=== PATIENT | female | born 1935 | race Caucasian/White ===

== ENCOUNTER 2017-08-07 17:10 | Inpatient (IN) | payer MEDICARE ==
[~2017-08-07] VITALS: Ht 157.5 cm; Wt 71.1 kg
[2017-08-07 17:10] VITALS: BP 176/72; PULSE 92; RESP 28; TEMP 98.3; O2SAT 94
[2017-08-07] MEDS ORDERED: LORazepam 2 MG/ML VIAL ONE ×2 (17:15)
--- NOTE | 2017-08-07 17:43 | RADRPT ---
EXAM DATE/TIME: 08/07/2017 17:26 [facility] COMPARISON: No previous studies available for comparison. INDICATIONS : Stroke Alert. Aphasia versus seizures. RADIATION DOSE: 32.93 CTDIvol (mGy) MEDICAL HISTORY : Non-responsive. SURGICAL HISTORY : Non-responsive. ENCOUNTER: Initial ACUITY: 1 day PAIN SCALE: Non-responsive LOCATION: cranial TECHNIQUE: Multiple contiguous axial images were obtained of the head. Using automated exposure control and adj ustment of the mA and/or kV according to patient size, radiation dose was kept as low as reasonably a chievable to obtain optimal diagnostic quality images. DICOM format image data is available electro nically for review and comparison. FINDINGS: CEREBRUM: Abnormal. There are 2 hyperdense masses with mild surrounding localized edema. These are located in the mid convexity right frontal measuring 2.6 cm and in the mid to high convexity left occipital lob e measuring 2.9 cm. Incidental note of cavum septum pellucidum. No evidence of midline shift or gunner tricular effacement. No extra-axial fluid or blood. POSTERIOR FOSSA: The cerebellum and brainstem are intact. The 4th ventricle is midline. The cerebellopontine angle i s unremarkable. EXTRACRANIAL: The visualized portion of the orbits is intact. SKULL: The calvaria is intact. No evidence of skull fracture. CONCLUSION: There are 2 hyperdense supratentorial masses, right frontal and left occipital, highly suspicious for metastatic lesions. The case has been discussed with Dr. Interiano. Jeremy Bardales MD on August 07, 2017 at 17:37 Board Certified Radiologist. This report was verified electronically.
[2017-08-07] MEDS ORDERED: FOSPHENYTOIN INJ 1,000 MGPE in SODIUM CHLORIDE 0.9% INJ 50 ML IV ONE ×4 (17:45)
[2017-08-07 18:02] LABS: AUTOMATED NEUTROPHIL # 6.1 TH/MM3 (1.8-7.7); BASOPHIL % 0.6 % (0.0-2.0); EOSINOPHIL # 0.2 TH/MM3 (0-0.4); EOSINOPHIL % 1.8 % (0.0-4.0); HEMATOCRIT 41.9 % (35.0-46.0); HEMOGLOBIN 14.7 GM/DL (11.6-15.3); LYMPH % 20.6 % (9.0-44.0); LYMPHOCYTE # 1.8 TH/MM3 (1.0-4.8); MEAN CELL VOLUME 87.8 FL (80.0-100.0); MEAN CORPUSCULAR HEMOGLOBIN 30.7 PG (27.0-34.0); MEAN PLATELET VOLUME 8.1 FL (7.0-11.0); MONO % 6.6 % (0.0-8.0); MONOCYTE # 0.6 TH/MM3 (0-0.9); NEUT % 70.4 % (16.0-70.0); PLATELET COUNT 202 TH/MM3 (150-450); RED BLOOD COUNT 4.78 MIL/MM3 (4.00-5.30); RED CELL DISTRIBUTION WIDTH 13.8 % (11.6-17.2); WHITE BLOOD COUNT 8.6 TH/MM3 (4.0-11.0)
[2017-08-07 18:05] LABS: ALBUMIN 4.2 GM/DL (3.4-5.0); ALT (GPT) 34 U/L (10-53); AST (GOT) 25 U/L (15-37); BICARBONATE 21.6 MEQ/L (21.0-32.0); BLOOD UREA NITROGEN 17 MG/DL (7-18); CALCIUM 9.4 MG/DL (8.5-10.1); CHLORIDE 103 MEQ/L (98-107); CREATININE 0.81 MG/DL (0.50-1.00); GLOMERULAR FILTRATION RATE 68 ML/MIN (>89); GLUCOSE,RANDOM 115 MG/DL (74-106); SODIUM (NA) 137 MEQ/L (136-145)
[2017-08-07 18:06] LABS: PROTHROMBIN TIME - PATIENT 10.6 SEC (9.8-11.6)
--- NOTE | 2017-08-07 18:12 | RADRPT ---
EXAM DATE/TIME: 08/07/2017 17:56 [facility] COMPARISON: No previous studies available for comparison. INDICATIONS : Stroke Alert. Aphasia versus seizures. MEDICAL HISTORY : Nonresponsive. SURGICAL HISTORY : Nonresponsive. ENCOUNTER: Initial ACUITY: 1 day PAIN SCORE: Non-responsive. LOCATION: Bilateral chest FINDINGS: A single view of the chest demonstrates the lungs to be symmetrically aerated without evidence of mas s, confluent infiltrate or effusion. There is prominence of the interstitial lung markings. The cardi omediastinal contours are unremarkable. Osseous structures are intact. Atherosclerotic changes are p resent in the aorta. There are multiple overlying electrocardiogram leads. CONCLUSION: No acute disease. Ap Bashir MD on August 07, 2017 at 18:10 Board Certified Radiologist. This report was verified electronically.
[2017-08-07 18:16] LABS: ALKALINE PHOSPHATASE 59 U/L (45-117); TOTAL BILIRUBIN ADULT 1.6 MG/DL (0.2-1.0); TOTAL PROTEIN 7.8 GM/DL (6.4-8.2)
--- NOTE | 2017-08-07 18:18 | PD ---
HPI Chief Complaint: Altered Mental Status Time Seen by Provider: 17:15 Travel History International Travel<30 days: No Contact w/Intl Traveler<30days: No Traveled to known affect area: No History of Present Illness HPI 81-year-old female was brought in by family member altered mental status. Patient's son states that patient states that she was not feeling well all day yesterday. Patient's son states that he went to the store and came back and patient was having shaking motions of extremity this afternoon. Patient also has been confused and had problems speaking since this afternoon. Patient unable to tell me any information. Patient's son states the patient has no medical problem. Patient's son states the patient is not on any medication. Patient son stated patient is not allergic to any medication. Patient son reported no recent injury. Patient's son states the patient is a nonsmoker. PFSH Past Medical History Diminished Hearing: No GERD: Yes Tetanus Vaccination: Unknown : 3 Para: 3 Miscarriage: 0 : 0 Past Surgical History Appendectomy: Yes Social History Alcohol Use: Yes Tobacco Use: No Substance Use: No Allergies-Medications (Allergen,Severity, Reaction): Coded Allergies: No Known Allergies (Unverified , 08/07/17) Reported Meds & Prescriptions Reported Meds & Active Scripts Active No Active Prescriptions or Reported Medications Review of Systems ROS Limitations: Altered Mental Status General / Constitutional: No: Fever Eyes: No: Visual changes HENT: No: Headaches Cardiovascular: No: Chest Pain or Discomfort Respiratory: No: Shortness of Breath Gastrointestinal: No: Abdominal Pain Genitourinary: No: Dysuria Musculoskeletal: No: Pain Skin: No Rash Neurologic: No: Weakness Psychiatric: No: Depression Endocrine: No: Polydipsia Hematologic/Lymphatic: No: Easy Bruising Physical Exam Narrative GENERAL: Well-nourished, well-developed patient. SKIN: Focused skin assessment warm/dry. HEAD: Normocephalic. EYES: No scleral icterus. No injection or drainage. NECK: Supple, trachea midline. No JVD or lymphadenopathy. CARDIOVASCULAR: Regular rate and rhythm without murmurs, gallops, or rubs. RESPIRATORY: Breath sounds equal bilaterally. No accessory muscle use. GASTROINTESTINAL: Abdomen soft, non-tender, nondistended. MUSCULOSKELETAL: No cyanosis, or edema. BACK: Nontender without obvious deformity. No CVA tenderness. Neurologic exam: Patient opens eyes to command and speak several words. Patient however has frequent fine tremors and shaking of the extremity and muscles spasm of the face. No bladder or bowel incontinence. Data Data Last Documented VS Vital Signs Date Time Temp Pulse Resp B/P (MAP) Pulse Ox O2 Delivery O2 Flow Rate FiO2 08/07/17 17:10 98.3 92 28 176/72 (106) 94 Orders Orders Lorazepam Inj (Ativan Inj) (08/07/17 17:15) Electrocardiogram (08/07/17 17:23) Complete Blood Count With Diff (08/07/17 17:23) Comprehensive Metabolic Panel (08/07/17 17:23) Prothrombin Time / Inr (Pt) (08/07/17:23) Act Partial Throm Time (Ptt) (08/07/17 17:23) Thyroid Stimulating Hormone (08/07/17 17:23) Chest, Single Ap (08/07/17 17:23) Ct Brain W/O Iv Contrast(Rout) (08/07/17 17:23) Iv Access Insert/Monitor (08/07/17 17:23) Ecg Monitoring (08/07/17 17:23) Oximetry (08/07/17 17:23) Fosphenytoin Inj (Cerebyx Inj) (08/07/17 17:45) Admit Order (Ed Use Only) (08/07/17 17:52) Consult Neurosurgery (08/07/17 ) Labs Laboratory Tests Test 08/07/17 17:30 White Blood Count 8.6 TH/MM3 Red Blood Count 4.78 MIL/MM3 Hemoglobin 14.7 GM/DL Hematocrit 41.9 % Mean Corpuscular Volume 87.8 FL Mean Corpuscular Hemoglobin 30.7 PG Mean Corpuscular Hemoglobin Concent 35.0 % Red Cell Distribution Width 13.8 % Platelet Count 202 TH/MM3 Mean Platelet Volume 8.1 FL Neutrophils (%) (Auto) 70.4 % Lymphocytes (%) (Auto) 20.6 % Monocytes (%) (Auto) 6.6 % Eosinophils (%) (Auto) 1.8 % Basophils (%) (Auto) 0.6 % Neutrophils # (Auto) 6.1 TH/MM3 Lymphocytes # (Auto) 1.8 TH/MM3 Monocytes # (Auto) 0.6 TH/MM3 Eosinophils # (Auto) 0.2 TH/MM3 Basophils # (Auto) 0.0 TH/MM3 CBC Comment DIFF FINAL Differential Comment Prothrombin Time 10.6 SEC Prothromb Time International Ratio 1.0 RATIO Activated Partial Thromboplast Time 22.6 SEC Blood Urea Nitrogen 17 MG/DL Creatinine 0.81 MG/DL Random Glucose 115 MG/DL Albumin 4.2 GM/DL Calcium Level 9.4 MG/DL Aspartate Amino Transf (AST/SGOT) 25 U/L Alanine Aminotransferase (ALT/SGPT) 34 U/L Sodium Level 137 MEQ/L Potassium Level 3.6 MEQ/L Chloride Level 103 MEQ/L Carbon Dioxide Level 21.6 MEQ/L Anion Gap 12 MEQ/L Estimat Glomerular Filtration Rate 68 ML/MIN MDM Medical Decision Making Medical Screen Exam Complete: Yes Emergency Medical Condition: Yes Interpretation(s) Last Impressions Head CT 08/07/17 6873 Signed Impressions: Service Date/Time: Monday, August 07, 2017 17:26 - CONCLUSION: There are 2 hyperdense supratentorial masses, right frontal and left occipital, highly suspicious for metastatic lesions. The case has been discussed with Dr. Interiano. Jeremy Bardales MD Chest x-ray shows no acute pulmonary disease. CBC within normal limit. CMP within normal limit. Differential Diagnosis Differential diagnosis including TIA, CVA, seizure. Narrative Course 81-year-old female with altered mental status, seizures episode and aphasia. Ativan 1 mg IV given. Normal saline solution [address] Romero, neurology came to see the patient. I spoke with Dr. Fernando, neurosurgeon, who came to see the patient also. Fosphenytoin 1 g IV given. Diagnosis Primary Impression: Brain mass Additional Impression: Seizure Admitting Information Admitting Physician Requests: Admit Scripts No Active Prescriptions or Reported Meds Manjit Interiano MD Aug 07, 2017 18:18
[2017-08-07 18:19] VITALS: BP 177/82; PULSE 90; RESP 20; O2SAT 94
[2017-08-07] MEDS ORDERED: LORazepam 2 MG/ML VIAL IV PUSH ONE ×2 (18:30)
--- NOTE | 2017-08-07 18:41 | PD.CONS ---
History of Present Illness Service Neurosurgery Consult Requested By Emergency room-Dr. Interiano Reason for Consult Brain lesions-seizure Primary Care Physician Unknown Diagnoses: History of Present Illness 81-year-old female who was brought to the emergency room by her family due to changes in mental status. She lives at home with her family. They state that when they came home this afternoon, their daughter noticed that the patient was confused and not speaking normally. She was also noted to have somewhat diffuse shaking or tremor in the upper greater than lower extremities. She had difficulty ambulating. She has no history of seizures. No history of cancer. The family states that the patient has not complained of any recent problems up until yesterday, including no headaches, dizziness, memory loss, gait difficulty. No recent fevers. Review of Systems Unable to obtain review of systems from the patient due to altered mental status Past Family Social History Allergies: Coded Allergies: No Known Allergies (Unverified , 08/07/17) Past Medical History No history of significant cardiac pulmonary or gastrointestinal disease except for GERD. No hypertension, diabetes. Past Surgical History Appendectomy Reported Medications Reported Meds & Active Scripts Active No Active Prescriptions or Reported Medications Family History Negative for cancer in the family Social History Does not smoke cigarettes or drink alcohol Physical Exam Vital Signs Vital Signs Date Time Temp Pulse Resp B/P (MAP) Pulse Ox O2 Delivery O2 Flow Rate FiO2 08/07/17 18:19 90 20 177/82 (113) 94 Room Air 08/07/17 17:10 98.3 92 28 176/72 (106) 94 Physical Exam GENERAL: This is a well-nourished, well-developed patient, no apparent distress. SKIN: No abrasions, contusion, rash noted. Skin warm and dry. HEAD: Atraumatic. Normocephalic. No temporal or scalp tenderness. EYES: Sclerae are clear and nonicteric ENT: No facial edema or ecchymosis. No periorbital edema. No CSF otorrhea or rhinorrhea. No palpable facial fracture or deformity. NECK: Trachea midline. No cervical spine tenderness. CARDIOVASCULAR: Regular rate and rhythm without murmurs, gallops, or rubs. RESPIRATORY: Clear to auscultation. Breath sounds equal bilaterally. No wheezes , rales, or rhonchi. GASTROINTESTINAL: Abdomen soft, non-tender, nondistended. No hepato-splenomegaly , or palpable masses. No guarding. MUSCULOSKELETAL: Extremities without cyanosis, or edema. No joint tenderness, or edema noted. No calf tenderness. Dorsalis pedis pulses 2+ bilateral NEUROLOGICAL: Mild to moderate lethargy No agitation Presently nonverbal She follows occasionally with her eyes and seems to grasp weak with her hands but not definitely to command Pupils are equal and reactive to accommodation. Extra-ocular movements, visual [place] to confrontation, facial sensorimotor, tongue, palate, sternocleidomastoid testing, hearing to finger rub testing, and bilateral shoulder shrug are all intact. Sensation is intact to light touch in all extremities Strength somewhat difficult to accurately assess due to decreased mental status. She appears to move all extremities with reasonable strength.. Possibly a little weaker on the right than the left side Sadie's absent bilaterally No ankle clonus Plantar responses absent bilateral Fine motor movements impaired in the bilateral upper extremities Laboratory Laboratory Tests Test 08/07/17 17:30 White Blood Count 8.6 Red Blood Count 4.78 Hemoglobin 14.7 Hematocrit 41.9 Mean Corpuscular Volume 87.8 Mean Corpuscular Hemoglobin 30.7 Mean Corpuscular Hemoglobin Concent 35.0 Red Cell Distribution Width 13.8 Platelet Count 202 Mean Platelet Volume 8.1 Neutrophils (%) (Auto) 70.4 Lymphocytes (%) (Auto) 20.6 Monocytes (%) (Auto) 6.6 Eosinophils (%) (Auto) 1.8 Basophils (%) (Auto) 0.6 Neutrophils # (Auto) 6.1 Lymphocytes # (Auto) 1.8 Monocytes # (Auto) 0.6 Eosinophils # (Auto) 0.2 Basophils # (Auto) 0.0 CBC Comment DIFF FINAL Differential Comment Prothrombin Time 10.6 Prothromb Time International Ratio 1.0 Activated Partial Thromboplast Time 22.6 Blood Urea Nitrogen 17 Creatinine 0.81 Random Glucose 115 Total Protein 7.8 Albumin 4.2 Calcium Level 9.4 Alkaline Phosphatase 59 Aspartate Amino Transf (AST/SGOT) 25 Alanine Aminotransferase (ALT/SGPT) 34 Total Bilirubin 1.6 Sodium Level 137 Potassium Level 3.6 Chloride Level 103 Carbon Dioxide Level 21.6 Anion Gap 12 Estimat Glomerular Filtration Rate 68 Thyroid Stimulating Hormone 3rd Gen 1.920 Result Diagram: 08/07/17 1730 08/07/17 1730 Imaging 08/07/17 CT scan had images have been reviewed by the undersigned. There is an approximately 25 mm right frontal increased density lesion as well as an approximately 30 mm left occipital lesion. There is a likelihood of hemorrhage within both lesions, with mild to moderate surrounding edema. No significant midline shift. Head CT 08/07/[id number] Signed Impressions: Service Date/Time: Monday, August 07, 2017 17:26 - CONCLUSION: There are 2 hyperdense supratentorial masses, right frontal and left occipital, highly suspicious for metastatic lesions. The case has been discussed with Dr. Interiano. Jeremy Bardales MD Chest X-Ray 08/07/171722 Signed Impressions: Service Date/Time: Monday, August 07, 2017 17:56 - CONCLUSION: No acute disease. Ap Bashir MD Assessment and Plan Assessment and Plan Impression: 1. The patient presents with a right frontal and left occipital brain lesion, probable hemorrhagic component. These are most consistent with metastatic brain lesions. 2. New onset seizure activity related to brain lesions. Recommendations: Discussed with the patient's family in the intensive surgical care unit. Discussed with energy efficiency specialist Admit to intensive care unit for close vital signs and neurologic checks. Patient has been loaded with Dilantin which will be continued. CT scan of the abdomen and pelvis and chest will be obtained for screening for possible primary lesion. MRI of the brain has been requested to better delineate the nature of the brain lesions. Oncology consultation. Ulcer prophylaxis Decadron initiated for edema surrounding the lesions. Jonny Fernando MD Aug 07, 2017 18:41
[2017-08-07] MEDS ORDERED: MISCELLANEOUS NURSING INFORMATION XX SCH ×2 (19:00)
[2017-08-07] MEDS ORDERED: CHLORHEXIDINE GLUCONATE 2 % 1 PACK (2 CLOTHS) TOP PRN ×2 (19:00)
[2017-08-07] MEDS ORDERED: RESP: ALBUTEROL 2.5 MG/IPRATROPIUM 0.5 MG NEB (PRN) INH ×2 (19:00)
[2017-08-07] MEDS ORDERED: DEXTROSE 50% IN WATER 50 ML VIAL(D50) IV PUSH PRN (19:15)
[2017-08-07] MEDS ORDERED: GLUCAGON 1 MG/ML VIAL OTHER PRN ×2 (19:15)
[2017-08-07] MEDS ORDERED: hydrALAZINE HCL 20 MG/ML VIAL IV PUSH PRN ×2 (19:30)
--- NOTE | 2017-08-07 19:48 | MH ---
cc: KAMILA GOMEZ M.D. DATE OF ADMISSION 08/07/2017 DATE OF 1935 HISTORY OF THE PRESENT ILLNESS The patient is a 81-year-old female without significant past medical history who presented to [facility] ED by her family due to altered mental status. According to the patient's son the patient was not feeling well yesterday. This afternoon he found her confused with difficulty speaking and was shaking in the extremities. There is no history of any seizure or malignancy. The patient also has difficulty with her speech, lethargic and complaining of headaches for one day. There is no history of any syncopal episode. On arrival to the ED the patient was hypertensive with blood pressure 176/72 and pulse of 92. CT scan of the brain showed two hyperdense masses with mild surrounding localized edema. She has a right frontal mass measuring 2.6 cm and left occipital lobe mass measuring 2.9 cm. The patient received a loading dose of Cerebyx in the ER for possible seizures and Ativan 1 mg IV x1 was given as well. She was seen by Dr. Fernando from neurosurgery and plan to proceed with MRI of the brain and oncology workup. PAST MEDICAL HISTORY No history of hypertension, diabetes, malignancy or coronary artery disease. PAST SURGICAL HISTORY Previous appendectomy. ALLERGIES NO KNOWN DRUG ALLERGIES. SOCIAL HISTORY Ex-drinker. Non smoker. FAMILY HISTORY No history of malignancy. MEDICATIONS Pepto-Bismol p.r.n. REVIEW OF SYSTEMS As per HPI, the rest of the review of systems limited as patient is a poor historian. PHYSICAL EXAMINATION GENERAL: A 81-year-old female, lethargic. VITAL SIGNS: Temperature 98.3, pulse of 91, blood pressure 177/82, saturation 94% on room air. HEENT: Atraumatic, normocephalic. Pupils equal, round, reactive to light and accommodation. Extraocular muscles intact. Conjunctivae pink. Nonicteric sclerae. Oral mucosa within normal. NECK: Supple. No JVD, adenopathy, thyromegaly. Trachea midline. CARDIOVASCULAR: Regular rate and rhythm. Normal S1-S2. No murmurs, rubs or gallops noted. LUNGS: Pulmonary exam bilateral equal air entry. No rales or wheezing. ABDOMEN: Soft, nontender, no distension. Positive bowel sounds. EXTREMITIES: No cyanosis, clubbing or edema. NEUROLOGIC: Lethargic and drowsy. LABORATORY DATA Sodium 137, potassium 3.6, chloride 103, CO2 21, BUN 17, creatinine 0.8, glucose 115, total bilirubin 1.6, AST 25, ALT 34, alk phos 59. TSH 1.9. WBC 8.6, hemoglobin 14.7, hematocrit 41, platelet count 202. INR 1.0. PT 10.6, PTT 22.6. IMAGING Radiographic studies, CT scan of the brain showed two hyperdense supratentorial masses right frontal and left occipital suspicious for metastatic lesions. Chest x-ray no acute disease. IMPRESSION 1. Right frontal 2.6 cm and left occipital 2.9 cm brain masses, suspicious for metastatic lesions. 2. Altered mental status. 3. New onset seizure activity. 4. Hypertension. RECOMMENDATIONS 1. Monitor neuro status closely and avoid any sedatives. We will proceed with MRI of the brain and oncology workup. Discussed with Dr. Fernando from neurosurgery. The patient was given 1 gram loading dose of Cerebyx in the ED. We will continue with Cerebyx and add Decadron. 2. Check EEG. 3. Oxygen p.r.n. to maintain sats above 92%. 4. Bronchodilators on a p.r.n. basis. 5. Monitor heart rate and blood pressure closely and maintain MAP greater than [address]. [address] on hydralazine 10 mg IV q.6h p.r.n. for systolic blood pressure greater than 160. 6. Monitor renal function Is and Os and electrolyte replacement as needed. Place on IV fluids NS at 75 ml an hour. 7. Keep n.p.o. for now and will consult speech therapy for swallow evaluation. 8. Hold antibiotics at this time at there is no evidence of any infectious process. Monitor for signs infections which include fever and WBC. Panculture if spikes a fever. 9. We will proceed with a CT scan of the thorax along with CT abdomen and pelvis for further workup of her metastatic brain lesions. 10. We will consult medical oncology. 11. Place on sliding scale insulin with Accu-Cheks for glycemic control if needed. 12. GI prophylaxis with Protonix 40 mg daily and DVT prophylaxis with SCDs. Will hold off on chemical anticoagulation prophylaxis given brain masses. 13. The case discussed with Dr. Fernando from neuro surgery. MD BETTY Lee 7:07 PM 7:26 PM
[2017-08-07] MEDS ORDERED: IOHEXOL 350 MG/ML 10 ML VIAL (for RAD DIAG) IVCONTRAST ONE ×2 (19:56)
[2017-08-07 20:00] VITALS: BP 118/81; PULSE 97; RESP 20; TEMP 98.5; O2SAT 99
[2017-08-07] MEDS: INSULIN NovoLIN REGULAR SUPPLEMENTAL SCALE SQ SCH ×2 (20:00)
--- NOTE | 2017-08-07 20:22 | RADRPT ---
EXAM DATE/TIME: 08/07/2017 19:53 [facility] COMPARISON: CHEST SINGLE AP, August 07, 2017, 17:56. INDICATIONS : Brain metastasis with unknown primary.. IV CONTRAST: 90 cc Omnipaque 350 (iohexol) IV ; Cumulative dose for multiple exams. RADIATION DOSE: 19.24 CTDIvol (mGy) ; Combined studies - Thorax/Abdomen/Pelvis MEDICAL HISTORY : None SURGICAL HISTORY : Appendectomy. ENCOUNTER: Initial ACUITY: 1 day PAIN SCALE: 0/10 LOCATION: chest TECHNIQUE: Volumetric scanning of the chest was performed. Using automated exposure control and adjustment of t he mA and/or kV according to patient size, radiation dose was kept as low as reasonably achievable to obtain optimal diagnostic quality images. DICOM format image data is available electronically for review and comparison. Follow-up recommendations for detected pulmonary nodules are based at a minimum on nodule size and pa tient risk factors according to Fleischner Society Guidelines. FINDINGS: LUNGS: There is no consolidation or pneumothorax. No concerning pulmonary nodule is visualized. PLEURA: There is no pleural thickening or pleural effusion. MEDIASTINUM: The heart and great vessels demonstrate no acute abnormality. There is no mediastinal or hilar lymph adenopathy. AXILLAE: Within normal limits. No lymphadenopathy. SKELETAL: Within normal limits for patient age. MISCELLANEOUS: The visualized upper abdominal organs demonstrate no acute abnormality. There is evidence of hepatic steatosis. There is a small hiatal hernia. There is a 6 mm low density nodule the right lobe of thyro id. CONCLUSION: 1. No evidence of primary tumor or metastatic disease. 2. Small low-attenuation lesion in the right lobe of the thyroid gland which is nonspecific but likel y represents a small hyperplastic. 3. Hepatic steatosis. 4. Small hiatal hernia. Ap Bashir MD on August 07, 2017 at 20:18 Board Certified Radiologist. This report was verified electronically.
--- NOTE | 2017-08-07 20:24 | RADRPT ---
EXAM DATE/TIME: 08/07/2017 19:53 [facility] COMPARISON: No previous studies available for comparison. INDICATIONS : Newly diagnosed brain metastasis. Patient being evaluated for unknown primary.. IV CONTRAST: 90 cc Omnipaque 350 (iohexol) IV ; Cumulative dose for multiple exams. ORAL CONTRAST: No oral contrast ingested. RADIATION DOSE: 19.9 CTDIvol (mGy) ; Combined studies - Thorax/Abdomen/Pelvis MEDICAL HISTORY : None SURGICAL HISTORY : Appendectomy. ENCOUNTER: Initial ACUITY: 1 day PAIN SCALE: 0/10 LOCATION: abdomen TECHNIQUE: Volumetric scanning of the abdomen and pelvis was performed. Using automated exposure control and ad justment of the mA and/or kV according to patient size, radiation dose was kept as low as reasonably achievable to obtain optimal diagnostic quality images. DICOM format image data is available electro nically for review and comparison. FINDINGS: LOWER LUNGS: The visualized lower lungs are clear. LIVER: Homogeneous density without lesion. There is no dilation of the biliary tree. No calcified gallston es. There is mild hepatic steatosis. The gallbladder is unremarkable in appearance. SPLEEN: Normal size without lesion. PANCREAS: Within normal limits. KIDNEYS: Normal in size and shape. There is no mass, stone or hydronephrosis. ADRENAL GLANDS: Within normal limits. VASCULAR: There is no aortic aneurysm. BOWEL/MESENTERY: There is a small hiatal hernia. No oral contrast was given limiting the sensitivity of the exam. The stomach, small bowel, and colon demonstrate no acute abnormality. There is no free intraperitoneal a ir or fluid. ABDOMINAL WALL: Within normal limits. RETROPERITONEUM: There is no lymphadenopathy. BLADDER: No wall thickening or mass. REPRODUCTIVE: Within normal limits. INGUINAL: There is no lymphadenopathy or hernia. MUSCULOSKELETAL: Within normal limits for patient age. Osteopenia and mild degenerative changes are present. CONCLUSION: 1. No evidence of primary tumor or metastatic disease. 2. Hepatic steatosis. 3. Small hiatal hernia. Ap Bashir MD on August 07, 2017 at 20:20 Board Certified Radiologist. This report was verified electronically.
[2017-08-07 20:30] VITALS: PULSE 97
[2017-08-07] MEDS: SODIUM CHLOR 0.9% 1000 ML INJ 1,000 ML IV SCH ×2 (21:08)
[2017-08-07] MEDS: levETIRAcetam INJ 500 MG in SODIUM CHLORIDE 0.9% INJ 100 ML IV SCH ×4 (21:08)
[2017-08-07] MEDS: DEXAMETHASONE SOD PHOS 4 MG/ML VIAL IV PUSH SCH ×2 (21:09)
[2017-08-07] MEDS: RESP: ALBUTEROL 2.5 MG/IPRATROPIUM 0.5 MG NEB (SCH) INH ×2 (21:24)
[2017-08-07 21:25] VITALS: O2SAT 95
[2017-08-07 22:00] VITALS: PULSE 104
[2017-08-07] MEDS ORDERED: HALOPERIDOL LACTATE 5 MG/ML AMP IV PUSH ONE ×2 (23:30)
[2017-08-08] VITALS (14 sets, daily range): BP systolic 105–155; BP diastolic 60–92; PULSE 78–118; RESP 13–28; TEMP 97.3–99.5; O2SAT 91–99
[2017-08-08] MEDS: DEXAMETHASONE SOD PHOS 4 MG/ML VIAL IV PUSH SCH ×10 (00:27→22:53)
[2017-08-08] MEDS ORDERED: MORPHINE SULFATE 2 MG/ML INJ IV PUSH ONE ×2 (03:00)
[2017-08-08] MEDS: CHLORHEXIDINE GLUCONATE 2 % 1 PACK (2 CLOTHS) TOP SCH ×2 (04:00)
[2017-08-08] MEDS: INSULIN NovoLIN REGULAR SUPPLEMENTAL SCALE SQ SCH ×12 (04:00→20:00)
[2017-08-08] MEDS: RESP: ALBUTEROL 2.5 MG/IPRATROPIUM 0.5 MG NEB (SCH) INH ×8 (04:00→20:50)
[2017-08-08] MEDS: LABETALOL HCL 100 MG/20 ML VIAL IV PUSH PRN ×4 (04:12→09:22)
[2017-08-08 04:22] LABS: BASOPHIL % 0.3 % (0.0-2.0); HEMATOCRIT 41.6 % (35.0-46.0); HEMOGLOBIN 14.6 GM/DL (11.6-15.3); LYMPH % 5.7 % (9.0-44.0); LYMPHOCYTE # 0.5 TH/MM3 (1.0-4.8); MEAN CELL VOLUME 87.1 FL (80.0-100.0); MEAN CORPUSCULAR HEMOGLOBIN 30.6 PG (27.0-34.0); MEAN CORPUSCULAR HGB CONC 35.1 % (32.0-36.0); MEAN PLATELET VOLUME 7.9 FL (7.0-11.0); MONO % 0.5 % (0.0-8.0); NEUT % 93.5 % (16.0-70.0); PLATELET COUNT 205 TH/MM3 (150-450); RED BLOOD COUNT 4.78 MIL/MM3 (4.00-5.30); RED CELL DISTRIBUTION WIDTH 13.9 % (11.6-17.2); WHITE BLOOD COUNT 8.6 TH/MM3 (4.0-11.0)
[2017-08-08 04:32] LABS: ALBUMIN 4.1 GM/DL (3.4-5.0); ALT (GPT) 30 U/L (10-53); AST (GOT) 21 U/L (15-37); BICARBONATE 21.2 MEQ/L (21.0-32.0); BLOOD UREA NITROGEN 12 MG/DL (7-18); CHLORIDE 102 MEQ/L (98-107); CREATININE 0.74 MG/DL (0.50-1.00); GLOMERULAR FILTRATION RATE 76 ML/MIN (>89); GLUCOSE,RANDOM 204 MG/DL (74-106); MAGNESIUM 1.9 MG/DL (1.5-2.5); PHOSPHORUS 2.6 MG/DL (2.5-4.9); SODIUM (NA) 136 MEQ/L (136-145)
[2017-08-08 04:35] LABS: ALKALINE PHOSPHATASE 61 U/L (45-117); TOTAL BILIRUBIN ADULT 1.9 MG/DL (0.2-1.0); TOTAL PROTEIN 7.5 GM/DL (6.4-8.2)
[2017-08-08] MEDS ORDERED: DEXMEDETOMIDINE HCL 200 MCG/2 ML VIAL IV PUSH ONE ×2 (08:00)
[2017-08-08] MEDS: levETIRAcetam INJ 500 MG in SODIUM CHLORIDE 0.9% INJ 100 ML IV SCH ×8 (09:00→22:53)
[2017-08-08] MEDS: SODIUM CHLOR 0.9% 1000 ML INJ 1,000 ML IV SCH ×4 (09:20→22:40)
--- NOTE | 2017-08-08 09:28 | MB ---
cc: TANNER ALCARAZ MD DATE OF CONSULTATION: 08/08/2017 1937 PRIMARY CARE PHYSICIAN The patient has none. REQUESTING PHYSICIAN Dr. Fernando of neurosurgery. REASON FOR CONSULTATION CT head findings of two hyperdense masses involving the right frontal lobe and left occipital lobe concerning for metastatic lesions. CHIEF COMPLAINT Ms. Crane herself is confused. Most of the history was obtained from her son and from the electronic medical record. Per the son, the patient has been increasingly confused and had been word searching for the past 2 days. She had also been reporting severe headache for which she was taking Aleve twice daily for the past week and a half. HISTORY OF PRESENT ILLNESS Ms. Crane is a 81-year-old female with no past history of tobaccoism, she does have a history of heavy alcohol consumption. She lives at home by herself and had no routine medical follow-up with a primary care provider. The patient's son reports seeing her almost on a daily basis over the past several months. He had been noting his mother to be increasingly confused, forgetful and with difficulty balancing. He was at her house 2 days ago and found the patient more confused than normal and she was unable to complete a sentence. He tells me her gait was wide and she had poor balance. She was brought into the emergency department and underwent a CT scan of the head with IV contrast. The CT scan of the head dated 08/07/2017 revealed two hyperdense supratentorial masses involving the left frontal lobe and left occipital lobe highly suspicious for underlying metastatic lesions. CT scan of the chest, abdomen, pelvis was subsequently performed and there was no evidence of definite primary disease. A small low attenuation lesion involving the right lobe of the thyroid gland was noted but this was thought to likely represent a hyperplastic cyst. The oncology service has been asked to see her given the likely underlying diagnosis of metastatic disease. The patient of note has no history of melanoma or breast cancer. PAST MEDICAL HISTORY Regular alcohol consumption, per the son. She has no other chronic medical comorbid conditions. PAST SURGICAL HISTORY Previous history of appendectomy. FAMILY HISTORY Daughter had a benign tumor. Father of coronary artery disease. No oncologic diagnoses noted. SOCIAL HISTORY She lives at home alone. Never a smoker, previous heavy drinker. ALLERGIES NO KNOWN DRUG ALLERGIES. MEDICATIONS Current inpatient medications: 1. Precedex. 2. Keppra 500 mg IV q.12 hours. 3. Normal saline 75 cc/hour. 4. DuoNebs 1 ampule every 6 hours as needed. 5. Dexamethasone 10 mg IV q.6 hours. 6. Haloperidol 2 mg IV x1. 7. Labetalol 10 mg IV q.6 hours as needed. 8. Lorazepam 1 mg IV x1. 9. Low-dose insulin sliding scale. Dexamethasone was decreased to 6 mg every 4-hours. REVIEW OF SYSTEMS 13-point review of systems was attempted, the patient is alert but not oriented. She is speaking unintelligibly. Per the son, the patient had been reporting headaches, difficulty balancing, difficulty completing sentences and was increasingly confused. There was no reported history of chest pain, respiratory difficulties, abdominal pain, or overt bleeding. The remainder of the HPI could not be obtained. PHYSICAL EXAMINATION VITAL SIGNS: Temperature 99.5 degrees Fahrenheit, heart rate 104 beats per minute, respiratory rate ranging between 25 and 28 breaths per minute, blood pressure 149/60, O2 sats 98% on 2 liters nasal cannula. GENERAL PHYSICAL APPEARANCE: Ms. Crane is an elderly lady, she is sitting up in bed. She is awake and alert, she is confused. She indicates she would like her restraints off. Her son is at bedside. HEENT: Head atraumatic, normocephalic, conjunctivae are non pale. Sclerae are anicteric. ORAL EXAM: No pharyngeal erythema. Dry mucous membranes. NECK: No palpable cervical or supraclavicular lymphadenopathy. RESPIRATORY: Good air movement bilaterally. No added breath sounds. CARDIOVASCULAR: Regular rate and rhythm, S1-S2. No obvious murmurs, rubs or gallops. GI: Protuberant belly, soft, nontender, nondistended. No palpable organ enlargement. No inguinal lymphadenopathy. BREAST: Performed in the presence of a female nurse chiropractor sole practitioner without any skin changes, no underlying masses noted, no axillary lymphadenopathy. LOWER EXTREMITIES: No pretibial edema or calf tenderness. SKIN: There were no suspicious obvious lesions noted on her arms or anterior torso or on her legs. LABORATORY FINDINGS Blood work dated 08/08/2017: WBC count 8.6, hemoglobin 14.6 gm/dl, hematocrit 41.6%, platelet count 205, absolute neutrophil count is 8. Chemistries: Sodium 136, potassium 3.5, chloride 102, bicarb 21.2, BUN 12, creatinine 0.74, calcium 9, phosphorus 2.6, magnesium 1.9, total bilirubin 1.9, AST 21, ALT 30, alkaline phosphatase 61, albumin is 4.1. IMAGING STUDIES CT scan of the chest, abdomen and pelvis reveals no evidence of primary malignancy. She does have a nodule noted in her right thyroid lobe which likely is hyperplastic. CT scan of the abdomen and pelvis was without abnormalities. CT scan of the head reveals two hyperdense supratentorial masses involving the right frontal lobe and left occipital lobe, highly suspicious for metastatic deposits with secondary hemorrhage. ASSESSMENT Ms. Crane is a 81-year-old female with no known medical comorbid conditions, she rarely followed up with a primary care physician. She has no history of tobaccoism but her son does report the patient previously was a heavy drinker. She had a 2-week history of progressive confusion, word searching, difficulty balancing and progressive headaches. She was brought into the emergency department by her son after the patient was found at home to be weak, unable to speak without stammering and was found on initial evaluation in the emergency department to have two hyperdense lesions within the brain. These were highly suspicious for metastatic lesions. No definite primary site in the thorax or abdomen was identified. The oncology service has been asked to see her for further management. RECOMMENDATIONS 1. The case was discussed with Dr. Fernando of neurosurgery. It appears she will benefit from biopsy/excision of the frontal lobe and occipital lobe lesions to help obtain tissue to identify the etiology. The oncology service will follow along with you. Further recommendations will be made once a underlying diagnosis is established. MD MAE Davis/VANDANA /8:37 AM /9:03 AM
[2017-08-08] MEDS: DEXMEDETOMIDINE INJ 200 MCG in SODIUM CHLORIDE 0.9% INJ 50 ML IV PRN ×12 (09:51→22:54)
--- NOTE | 2017-08-08 10:14 | HHI.NSPN ---
(Bonifacio Harrell) History Chief Complaint: Unable to obtain due to patient's clinical condition. (Bonifacio Harrell) Interval History 08/07: 81-year-old female who was brought to the emergency room by her family due to changes in mental status. She lives at home with her family. They state that when they came home this afternoon, their daughter noticed that the patient was confused and not speaking normally. She was also noted to have somewhat diffuse shaking or tremor in the upper greater than lower extremities. She had difficulty ambulating. She has no history of seizures. No history of cancer. The family states that the patient has not complained of any recent problems up until yesterday, including no headaches, dizziness, memory loss, gait difficulty. No recent fevers. 08/08: The patient is mildly lethargic when seen and responds to voice. Her family is visiting with her. She states that she wants to be left alone and is noncooperative. Her speech is slurred and at times incomprehensible. She does endorse a headache. (Bonifacio Harrell) System Review Comments Neurological: Headache. Unable to obtain remainder of ROS due to patient's refusal to answer any further questions. (Bonifacio Harrell) Exam Results 08/06/17 08/06/17 08/07/17 08/07/17 08/08/17 08/08/17 06:00 18:00 06:00 18:00 06:00 18:00 Intake Total 168 ml Output Total 300 ml Balance -132 ml Intake IV Total 168 ml Output Urine Total 300 ml # Voids 1 # Bowel Movements 0 Vital Signs Date Time Temp Pulse Resp B/P (MAP) Pulse Ox O2 Delivery O2 Flow Rate FiO2 08/08/17 06:00 116 08/08/17 04:00 104 08/08/17 04:00 99.5 98 28 149/60 (89) 98 08/08/17 02:00 118 08/08/17 00:00 101 08/08/17 00:00 99.5 100 26 144/73 (96) 92 08/07/17 22:00 104 08/07/17 21:25 95 Nasal Cannula 2.00 08/07/17 20:30 97 08/07/17 20:00 98.5 97 20 118/81 (93) 99 08/07/17 18:19 90 20 177/82 (113) 94 Room Air 08/07/17 17:10 98.3 92 28 176/72 (106) 94 (Bonifacio Harrell) Physical Examination GENERAL: Mild lethargy, responds to voice, resistant to interacting, no apparent distress. SKIN: Warm, dry & intact, no evident rashes, ulcerations or other lesions. HEENT: Normocephalic, atraumatic, PERRLA, no otorrhea or rhinorrhea. Patient refused to open mouth. NECK: Moves neck w/o difficulty or evident pain, no JVD, trachea midline. CARDIOVASCULAR: S1S2 w/RRR w/o M/G/R, radial & pedal pulses 2+ bilaterally, cap refill < 2 sec, no pedal edema. Monitor is sinus rhythm w/o any ectopy noted. RESPIRATORY: CTAB w/o W/R/R, equal excursion, nonlaboured, on RA. GASTROINTESTINAL: Abdomen soft, nontender, positive bowel sounds. MUSCULOSKELETAL: BURNS but restrained due to pulling at lines, no evident deformity or clubbing. NEUROLOGICAL: Mild lethargy, responds to voice, resistant to evaluation & noncooperative, GCS 13 (E3 V4 M6). Speech slurred, garbled at times, confused. Eye opening to voice, PERRLA. Follows some simple commands w/coaxing. Wiggles fingers and toes to command to a degree to command, restrained. (Bonifacio Harrell) Lab, Micro, Other Results Recent Impressions Head CT 08/07/171722 Signed Impressions: Service Date/Time: Monday, August 07, 2017 17:26 - CONCLUSION: There are 2 hyperdense supratentorial masses, right frontal and left occipital, highly suspicious for metastatic lesions. The case has been discussed with Dr. Interiano. Jeremy Bardales MD Chest X-Ray [id number]/07/171722 Signed Impressions: Service Date/Time: Monday, August 07, 2017 17:56 - CONCLUSION: No acute disease. Ap Bashir MD Chest CT 08/07/17 0000 Signed Impressions: Service Date/Time: Monday, August 07, 2017 19:53 - CONCLUSION: 1. No evidence of primary tumor or metastatic disease. 2. Small low-attenuation lesion in the right lobe of the thyroid gland which is nonspecific but likely represents a small hyperplastic. 3. Hepatic steatosis. 4. Small hiatal hernia. Ap Bashir MD Abdomen/Pelvis CT 08/07/17 0000 Signed Impressions: Service Date/Time: Monday, August 07, 2017 19:53 - CONCLUSION: 1. No evidence of primary tumor or metastatic disease. 2. Hepatic steatosis. 3. Small hiatal hernia. Ap Bashir MD Laboratory Tests Test 08/07/17 17:30 08/07/17 21:02 08/07/17 23:00 08/08/17 04:01 White Blood Count 8.6 TH/MM3 8.6 TH/MM3 Red Blood Count 4.78 MIL/MM3 4.78 MIL/MM3 Hemoglobin 14.7 GM/DL 14.6 GM/DL Hematocrit 41.9 % 41.6 % Mean Corpuscular Volume 87.8 FL 87.1 FL Mean Corpuscular Hemoglobin 30.7 PG 30.6 PG Mean Corpuscular Hemoglobin Concent 35.0 % 35.1 % Red Cell Distribution Width 13.8 % 13.9 % Platelet Count 202 TH/MM3 205 TH/MM3 Mean Platelet Volume 8.1 FL 7.9 FL Neutrophils (%) (Auto) 70.4 % 93.5 % Lymphocytes (%) (Auto) 20.6 % 5.7 % Monocytes (%) (Auto) 6.6 % 0.5 % Eosinophils (%) (Auto) 1.8 % 0.0 % Basophils (%) (Auto) 0.6 % 0.3 % Neutrophils # (Auto) 6.1 TH/MM3 8.0 TH/MM3 Lymphocytes # (Auto) 1.8 TH/MM3 0.5 TH/MM3 Monocytes # (Auto) 0.6 TH/MM3 0.0 TH/MM3 Eosinophils # (Auto) 0.2 TH/MM3 0.0 TH/MM3 Basophils # (Auto) 0.0 TH/MM3 0.0 TH/MM3 CBC Comment DIFF FINAL DIFF FINAL Differential Comment Prothrombin Time 10.6 SEC Prothromb Time International Ratio 1.0 RATIO Activated Partial Thromboplast Time 22.6 SEC Blood Urea Nitrogen 17 MG/DL 12 MG/DL Creatinine 0.81 MG/DL 0.74 MG/DL Random Glucose 115 MG/DL 204 MG/DL Total Protein 7.8 GM/DL 7.5 GM/DL Albumin 4.2 GM/DL 4.1 GM/DL Calcium Level 9.4 MG/DL 9.0 MG/DL Alkaline Phosphatase 59 U/L 61 U/L Aspartate Amino Transf (AST/SGOT) 25 U/L 21 U/L Alanine Aminotransferase (ALT/SGPT) 34 U/L 30 U/L Total Bilirubin 1.6 MG/DL 1.9 MG/DL Sodium Level 137 MEQ/L 136 MEQ/L Potassium Level 3.6 MEQ/L 3.5 MEQ/L Chloride Level 103 MEQ/L 102 MEQ/L Carbon Dioxide Level 21.6 MEQ/L 21.2 MEQ/L Anion Gap 12 MEQ/L 13 MEQ/L Estimat Glomerular Filtration Rate 68 ML/MIN 76 ML/MIN Thyroid Stimulating Hormone 3rd Gen 1.920 uIU/ML Blood Gas Puncture Site RT RADIAL Blood Gas Patient Temperature 98.6 Blood Gas HCO3 23 mmol/L Blood Gas Base Excess -0.6 mmol/L Blood Gas Oxygen Saturation 92 % Arterial Blood pH 7.46 Arterial Blood Partial Pressure CO2 33 mmHg Arterial Blood Partial Pressure O2 67 mmHg Arterial Blood Oxygen Content 17.9 Vol % Arterial Blood Carboxyhemoglobin 1.5 % Arterial Blood Methemoglobin 0.8 % Blood Gas Hemoglobin 13.9 G/DL Oxygen Delivery Device NASAL CANNULA Blood Gas Liter Flow 2 L/M Nasal Screen MRSA (PCR) MRSA NOT DETECTED Phosphorus Level 2.6 MG/DL Magnesium Level 1.9 MG/DL (Bonifacio Harrell) Medical Decision Making Impression and Plan Impression: 1. The patient presents with a right frontal and left occipital brain lesion, probable hemorrhagic component. These are most consistent with metastatic brain lesions. 2. New onset seizure activity related to brain lesions. Patient mildly lethargic, still confused, speech slurred/garbled intermittently , occasionally follows some commands. Reviewed imaging & labs. Reviewed Oncology consult note. Plan: Discussed plan of care with the patient's family. Primary management per Funeral Planning Counselor/Hospitalist. Plan to take patient to OR tomorrow for resection of the right frontal & left occipital brain lesions. Will obtain MRI brain w/o & w/contrast w/brain lab in AM prior to surgery under Anaesthesia. NPO after midnight. Frequent neuro checks. Stat CT brain for any worsening in neuro status. Continue phenytoin. Ulcer prophylaxis. Continue dexamethasone for edema surrounding the lesions. Appreciate Oncology's assistance and input. (Bonifacio Harrell) Attending Statement The exam, history, and the medical decision-making described in the above note were completed with the assistance of the mid-level provider. I reviewed and agree with the findings presented. I attest that I had a [id number] encounter with the patient on the same day, and personally performed and documented my assessment and findings in the medical record. She remains relatively awake and alert. Still with moderate receptive and expressive speech deficit and at least mild confusion. She was all extremities well. Follows a few simple commands. Neurologic exam a little improved compared to admission. Discussed at length with the patient's son in the room today. Options of conservative treatment versus surgical intervention for biopsy versus resection discussed. I advised him that at least a biopsy under anesthesia revealed necessary to continue further treatment including possible chemotherapy and radiation therapy. Due to the significant neurologic deficit and the potential for further hemorrhage, as well as the likely improvement and prognosis with surgical resection, it is felt that resection of the lesions would be her most reasonable course of treatment at this time. He appears understand and agree with the above. The surgical procedure, risks, possible complications, prognosis, anticipated recovery time has been fully discussed. Questions and answered. Since been reviewed with the patient's son today. It is anticipated that she will proceed to surgery on 08-24, with preoperative MRI under anesthesia including stereotactic MRI brain imaging. (Jonny Fernando MD) Bonifacio Harrell Aug 08, 2017 10:14 Jonny Fernando MD Aug 10, 2017 20:17
--- NOTE | 2017-08-08 12:26 | HHI.CCPN ---
Subjective Remarks/Hospital Course The patient is a 81-year-old female without significant past medical history who presented to [facility] ED by her family due to altered mental status. According to the patient's son the patient was not feeling well yesterday. This afternoon he found her confused with difficulty speaking and was shaking in the extremities. There is no history of any seizure or malignancy. The patient also has difficulty with her speech, lethargic and complaining of headaches for one day. There is no history of any syncopal episode. On arrival to the ED the patient was hypertensive with blood pressure 176/72 and pulse of 92. CT scan of the brain showed two hyperdense masses with mild surrounding localized edema. She has a right frontal mass measuring 2.6 cm and left occipital lobe mass measuring 2.9 cm. The patient received a loading dose of Cerebyx in the ER for possible seizures and Ativan 1 mg IV x1 was given as well. She was seen by Dr. Fernando from neurosurgery and plan to proceed with MRI of the brain and oncology workup. 08/08: No seizures today. Protects airway. Objective Vital Signs Date Time Temp Pulse Resp B/P (MAP) Pulse Ox O2 Delivery O2 Flow Rate FiO2 08/08/17 11:09 95 Nasal Cannula 2.00 08/08/17 06:00 116 08/08/17 04:00 99.5 28 149/60 (89) Intake and Output 08/08/17 08/08/17 08/09/17 08:00 16:00 00:00 Output Total 300 ml Balance -300 ml Result Diagram: 08/08/17 0401 08/08/17 0401 Other Results Laboratory Tests Test 08/07/17 21:02 Blood Gas Puncture Site RT RADIAL Blood Gas Patient Temperature 98.6 Blood Gas HCO3 23 mmol/L (22-26) Blood Gas Base Excess -0.6 mmol/L (-2-2) Blood Gas Oxygen Saturation 92 % (90-100) Arterial Blood pH 7.46 (7.380-7.420) Arterial Blood Partial Pressure CO2 33 mmHg (38-42) Arterial Blood Partial Pressure O2 67 mmHg (61-120) Arterial Blood Oxygen Content 17.9 Vol % (12.0-20.0) Arterial Blood Carboxyhemoglobin 1.5 % (0-4) Arterial Blood Methemoglobin 0.8 % (0-2) Blood Gas Hemoglobin 13.9 G/DL (12.0-16.0) Oxygen Delivery Device NASAL CANNULA Blood Gas Liter Flow 2 L/M Objective Remarks HEENT: Atraumatic, normocephalic. Conjunctivae pink. Nonictericsclerae. Oral mucosa within normal. NECK: Supple. No JVD, adenopathy, thyromegaly. Trachea midline. CARDIOVASCULAR: Regular rate and rhythm. Normal S1-S2. No murmurs, rubs or gallops noted. LUNGS: Pulmonary exam bilateral equal air entry. No rales or wheezing. ABDOMEN: Soft, nontender, no distension. Positive bowel sounds. EXTREMITIES: No cyanosis, clubbing or edema. NEUROLOGIC: Lethargic and drowsy. Pupils equal, round, reactive to light and accommodation. Extraocular muscles intact. A/P Assessment and Plan IMPRESSION: 1. Right frontal 2.6 cm and left occipital 2.9 cm brain masses, suspicious for metastatic lesions. 2. Altered mental status. 3. New onset seizure activity. 4. Hypertension. RECOMMENDATIONS: 1. Monitor neuro status closely and avoid any sedatives. We will proceed with MRI of the brain and oncology workup. Discussed with Dr. Fernando from neurosurgery. The patient was given 1 gram loading dose of Cerebyx in the ED. We will continue with Cerebyx and add Decadron. 2. Check EEG. 3. Oxygen p.r.n. to maintain sats above 92%. 4. Bronchodilators on a p.r.n. basis. 5. Monitor heart rate and blood pressure closely and maintain MAP greater than [address] on hydralazine 10 mg IV q.6h p.r.n. for systolic blood pressure greater than 160. 6. Monitor renal function Is and Os and electrolyte replacement as needed. Place on IV fluids NS at 75 ml an hour. 7. Keep n.p.o. for now and will consult speech therapy for swallow evaluation. 8. Hold antibiotics at this time at there is no evidence of any infectious process. Monitor for signs infections which include fever and WBC. Panculture if spikes a fever. 9. We will proceed with a CT scan of the thorax along with CT abdomen and pelvis for further workup of her metastatic brain lesions. 10. We will consult medical oncology. 11. Place on sliding scale insulin with Accu-Cheks for glycemic control if needed. 12. GI prophylaxis with Protonix 40 mg daily and DVT prophylaxis with SCDs. Will hold off on chemical anticoagulation prophylaxis given brain masses. 13. The case discussed with Dr. Fernando from neuro surgery. Overall impression: Two lathe brain masses. CT chest and abdomen without obvious promary. Payam Almeida MD Aug 08, 2017 12:26
[2017-08-08] MEDS ORDERED: POTASSIUM PHOSPHATE MONOBASIC 500 MG TAB PO/TUBE PRN ×2 (13:00)
[2017-08-08] MEDS ORDERED: POTASSIUM PHOSPHATE INJ 30 MMOL in SODIUM CHLOR 0.9% 250 ML INJ 250 ML IV PRN ×4 (13:00)
[2017-08-08] MEDS ORDERED: POTASSIUM CHLOR 20 MEQ PREMIX 100 ML IV PRN ×4 (13:00)
[2017-08-08] MEDS ORDERED: MAGNESIUM OXIDE 400 MG TAB PO PRN ×2 (13:00)
[2017-08-08] MEDS ORDERED: MAGNESIUM SULFATE INJ 4 GM in SODIUM CHLORIDE 0.9% INJ 92 ML IV PRN ×4 (13:00)
[2017-08-08] MEDS ORDERED: MAGNESIUM SULFATE INJ 2 GM in SODIUM CHLORIDE 0.9% INJ 96 ML IV PRN ×4 (13:00)
[2017-08-08] MEDS ORDERED: POTASSIUM PHOSPHATE MONOBASIC 500 MG TAB PO PRN ×2 (13:00)
[2017-08-08] MEDS ORDERED: SODIUM PHOSPHATE INJ 30 MMOL in SODIUM CHLOR 0.9% 250 ML INJ 240 ML IV PRN ×4 (13:00)
[2017-08-08] MEDS ORDERED: POTASSIUM CHLOR 40 MEQ PREMIX 100 ML IV PRN ×4 (13:00)
[2017-08-08] MEDS ORDERED: POTASSIUM CHLORIDE 25 MEQ EFFERVESCENT TAB PO PRN ×2 (13:00)
--- NOTE | 2017-08-08 15:46 | EKG ---
Date Performed: 08/07/2017 Time Performed: 17:36:25 PTAGE: 81 years EKG: Sinus rhythm NORMAL ECG NO PREVIOUS TRACING DOCTOR: Maria Isabel Hernandez Interpretating Date/Time 08/08/2017 15:44:08
--- NOTE | 2017-08-08 15:46 | EKG ---
Date Performed: 08/07/2017 Time Performed: 17:36:25 PTAGE: 81 years EKG: Sinus rhythm NORMAL ECG NO PREVIOUS TRACING DOCTOR: Maria Isabel Hernandez Interpretating Date/Time 08/08/2017 15:44:08
--- NOTE | 2017-08-08 15:46 | EKG ---
Date Performed: 08/07/2017 Time Performed: 17:36:25 PTAGE: 81 years EKG: Sinus rhythm NORMAL ECG NO PREVIOUS TRACING DOCTOR: Maria Isabel Hernandez Interpretating Date/Time 08/08/2017 15:44:08
[2017-08-09] VITALS (11 sets, daily range): BP systolic 124–140; BP diastolic 59–63; PULSE 67–124; RESP 13–18; TEMP 97.6–98.4; O2SAT 94–98
--- NOTE | 2017-08-09 00:20 | MG ---
cc: FLEX ROMERO MD Sex: F DATE OF [address] Morales MEDICAL HISTORY Altered mental status, shaking motion of extremity, confused, speech difficulty , history of GERD, alcohol use. MEDICATIONS 1. Precedex. 2. Keppra. 3. Insulin. 4. Apresoline. 5. Trandate. 6. Decadron DESCRIPTION: EEG recording was done while the patient is on 0.3 mcg of Precedex. There is generalized background slowing with polymorphic delta and theta rhythm. There is evident slowing in the right frontal region in the theta range and on the left temporal occipital region, mainly on the left side and intermittently on the delta range. Hyperventilation was not performed. Photic stimulation did not elicit a driving response. There is no electrographic seizures or epileptiform discharges. EEG INTERPRETATION This is an awake and drowsy EEG. Generalized slowing of the background may indicate an encephalopathic process that may be related to metabolic, medication effects, or hypoxic etiology. The mild right frontal and moderate left occipital slowing may indicate a structural abnormality. Absence of electrographic seizures or epileptiform discharges does not rule out a diagnosis of epilepsy. Clinical correlation is recommended. Flex Romero MD [facility]/JASPER /8:26 PM /12:16 AM MTDAmanda
--- NOTE | 2017-08-09 00:20 | MG ---
cc: FLEX ROMERO MD Sex: F DATE OF [address] Morales MEDICAL HISTORY Altered mental status, shaking motion of extremity, confused, speech difficulty , history of GERD, alcohol use. MEDICATIONS 1. Precedex. 2. Keppra. 3. Insulin. 4. Apresoline. 5. Trandate. 6. Decadron DESCRIPTION: EEG recording was done while the patient is on 0.3 mcg of Precedex. There is generalized background slowing with polymorphic delta and theta rhythm. There is evident slowing in the right frontal region in the theta range and on the left temporal occipital region, mainly on the left side and intermittently on the delta range. Hyperventilation was not performed. Photic stimulation did not elicit a driving response. There is no electrographic seizures or epileptiform discharges. EEG INTERPRETATION This is an awake and drowsy EEG. Generalized slowing of the background may indicate an encephalopathic process that may be related to metabolic, medication effects, or hypoxic etiology. The mild right frontal and moderate left occipital slowing may indicate a structural abnormality. Absence of electrographic seizures or epileptiform discharges does not rule out a diagnosis of epilepsy. Clinical correlation is recommended. Flex Romero MD [facility]/JASPER /8:26 PM /12:16 AM MTDAmanda
--- NOTE | 2017-08-09 00:20 | MG ---
cc: FLEX ROMERO MD Sex: F DATE OF [address] Morales MEDICAL HISTORY Altered mental status, shaking motion of extremity, confused, speech difficulty , history of GERD, alcohol use. MEDICATIONS 1. Precedex. 2. Keppra. 3. Insulin. 4. Apresoline. 5. Trandate. 6. Decadron DESCRIPTION: EEG recording was done while the patient is on 0.3 mcg of Precedex. There is generalized background slowing with polymorphic delta and theta rhythm. There is evident slowing in the right frontal region in the theta range and on the left temporal occipital region, mainly on the left side and intermittently on the delta range. Hyperventilation was not performed. Photic stimulation did not elicit a driving response. There is no electrographic seizures or epileptiform discharges. EEG INTERPRETATION This is an awake and drowsy EEG. Generalized slowing of the background may indicate an encephalopathic process that may be related to metabolic, medication effects, or hypoxic etiology. The mild right frontal and moderate left occipital slowing may indicate a structural abnormality. Absence of electrographic seizures or epileptiform discharges does not rule out a diagnosis of epilepsy. Clinical correlation is recommended. Flex Romero MD [facility] /8:26 PM /12:16 AM MTDAmanda
[2017-08-09] MEDS: CHLORHEXIDINE GLUCONATE 2 % 1 PACK (2 CLOTHS) TOP SCH ×2 (04:00)
[2017-08-09] MEDS: INSULIN NovoLIN REGULAR SUPPLEMENTAL SCALE SQ SCH ×12 (04:00→20:00)
[2017-08-09] MEDS: DEXAMETHASONE SOD PHOS 4 MG/ML VIAL IV PUSH SCH ×10 (04:55→23:03)
[2017-08-09] MEDS: RESP: ALBUTEROL 2.5 MG/IPRATROPIUM 0.5 MG NEB (SCH) INH ×8 (04:57→21:34)
[2017-08-09 05:24] LABS: BICARBONATE 23.2 MEQ/L (21.0-32.0); CALCIUM 8.8 MG/DL (8.5-10.1); CREATININE 0.57 MG/DL (0.50-1.00)
[2017-08-09] MEDS: DEXMEDETOMIDINE INJ 200 MCG in SODIUM CHLORIDE 0.9% INJ 50 ML IV PRN ×4 (05:25)
[2017-08-09] MEDS: levETIRAcetam INJ 500 MG in SODIUM CHLORIDE 0.9% INJ 100 ML IV SCH ×8 (09:33→20:33)
--- NOTE | 2017-08-09 09:49 | HHI.NSPN ---
(Bonifacio Harrell) History Chief Complaint: None (Bonifacio Harrell) Interval History 08/07: 81-year-old female who was brought to the emergency room by her family due to changes in mental status. She lives at home with her family. They state that when they came home this afternoon, their daughter noticed that the patient was confused and not speaking normally. She was also noted to have somewhat diffuse shaking or tremor in the upper greater than lower extremities. She had difficulty ambulating. She has no history of seizures. No history of cancer. The family states that the patient has not complained of any recent problems up until yesterday, including no headaches, dizziness, memory loss, gait difficulty. No recent fevers. 08/08: The patient is mildly lethargic when seen and responds to voice. Her family is visiting with her. She states that she wants to be left alone and is noncooperative. Her speech is slurred and at times incomprehensible. She does endorse a headache. 08/09: The patient is seen in rounds with Dr Fernando this morning. She is asleep but opens her eyes to voice. She denies any headache when asked. The undersigned acts as a scribe for the remainder of this note. (Bonifacio Harrell) System Review Comments Denies any headache. (Bonifacio Harrell) Exam Results 08/07/17 08/07/17 08/08/17 08/08/17 08/09/17 08/09/17 06:00 18:00 06:00 18:00 06:00 18:00 Intake Total 168 ml 639 ml 100 ml Output Total 300 ml 1300 ml 1100 ml Balance -132 ml -661 ml -1000 ml Intake Oral 0 ml IV Total 168 ml 639 ml 100 ml Output Urine Total 300 ml 1300 ml 1100 ml # Voids 1 3 # Bowel Movements 0 0 0 Vital Signs Date Time Temp Pulse Resp B/P (MAP) Pulse Ox O2 Delivery O2 Flow Rate FiO2 08/09/17 06:00 72 08/09/17 04:00 97.6 67 13 124/59 (80) 98 08/09/17 04:00 67 08/09/17 02:00 74 08/09/17 00:58 97 Nasal Cannula 4.00 08/09/17 00:00 98.4 68 14 127/63 (84) 98 08/09/17 00:00 71 08/08/17 22:00 78 08/08/17 20:50 98 Nasal Cannula 4.00 08/08/17 20:00 98.0 78 13 105/61 (76) 97 08/08/17 20:00 78 08/08/17 19:00 98 Nasal Cannula 3.00 08/08/17 18:00 99 08/08/17 16:00 98.1 90 15 151/72 (98) 99 08/08/17 16:00 90 08/08/17 14:00 79 08/08/17 12:00 98.3 94 21 140/63 (88) 91 08/08/17 12:00 90 08/08/17 11:09 95 Nasal Cannula 2.00 08/08/17 10:00 98 08/08/17 08:00 97.3 112 26 155/92 (113) 98 08/08/17 08:00 112 08/08/17 07:00 98 Nasal Cannula 3.00 08/08/17 06:00 116 08/08/17 04:00 104 08/08/17 04:00 99.5 98 28 149/60 (89) 98 08/08/17 02:00 118 08/08/17 00:00 101 08/08/17 00:00 99.5 100 26 144/73 (96) 92 08/07/17 22:00 104 08/07/17 21:25 95 Nasal Cannula 2.00 08/07/17 20:30 97 08/07/17 20:00 98.5 97 20 118/81 (93) 99 08/07/17 18:19 90 20 177/82 (113) 94 Room Air 08/07/17 17:10 98.3 92 28 176/72 (106) 94 (Bonifacio Harrell) Physical Examination MUSCULOSKELETAL: BURNS. NEUROLOGICAL: Speech is confused. She does follow commands and moves her extremities spontaneously. (Bonifacio Harrell) Lab, Micro, Other Results Recent Impressions Head CT [id number]/07/[id number] Signed Impressions: Service Date/Time: Monday, August 07, 2017 17:26 - CONCLUSION: There are 2 hyperdense supratentorial masses, right frontal and left occipital, highly suspicious for metastatic lesions. The case has been discussed with Dr. Interiano. Jeremy Bardales MD Chest X-Ray [id number]/07/[id number] Signed Impressions: Service Date/Time: Monday, August 07, 2017 17:56 - CONCLUSION: No acute disease. Ap Bashir MD Chest CT 08/07/17 0000 Signed Impressions: Service Date/Time: Monday, August 07, 2017 19:53 - CONCLUSION: 1. No evidence of primary tumor or metastatic disease. 2. Small low-attenuation lesion in the right lobe of the thyroid gland which is nonspecific but likely represents a small hyperplastic. 3. Hepatic steatosis. 4. Small hiatal hernia. Ap Bashir MD Abdomen/Pelvis CT 08/07/17 0000 Signed Impressions: Service Date/Time: Monday, August 07, 2017 19:53 - CONCLUSION: 1. No evidence of primary tumor or metastatic disease. 2. Hepatic steatosis. 3. Small hiatal hernia. Ap Bashir MD Laboratory Tests Test 08/07/17 17:30 08/07/17 21:02 08/07/17 23:00 08/08/17 04:01 White Blood Count 8.6 TH/MM3 8.6 TH/MM3 Red Blood Count 4.78 MIL/MM3 4.78 MIL/MM3 Hemoglobin 14.7 GM/DL 14.6 GM/DL Hematocrit 41.9 % 41.6 % Mean Corpuscular Volume 87.8 FL 87.1 FL Mean Corpuscular Hemoglobin 30.7 PG 30.6 PG Mean Corpuscular Hemoglobin Concent 35.0 % 35.1 % Red Cell Distribution Width 13.8 % 13.9 % Platelet Count 202 TH/MM3 205 TH/MM3 Mean Platelet Volume 8.1 FL 7.9 FL Neutrophils (%) (Auto) 70.4 % 93.5 % Lymphocytes (%) (Auto) 20.6 % 5.7 % Monocytes (%) (Auto) 6.6 % 0.5 % Eosinophils (%) (Auto) 1.8 % 0.0 % Basophils (%) (Auto) 0.6 % 0.3 % Neutrophils # (Auto) 6.1 TH/MM3 8.0 TH/MM3 Lymphocytes # (Auto) 1.8 TH/MM3 0.5 TH/MM3 Monocytes # (Auto) 0.6 TH/MM3 0.0 TH/MM3 Eosinophils # (Auto) 0.2 TH/MM3 0.0 TH/MM3 Basophils # (Auto) 0.0 TH/MM3 0.0 TH/MM3 CBC Comment DIFF FINAL DIFF FINAL Differential Comment Prothrombin Time 10.6 SEC Prothromb Time International Ratio 1.0 RATIO Activated Partial Thromboplast Time 22.6 SEC Blood Urea Nitrogen 17 MG/DL 12 MG/DL Creatinine 0.81 MG/DL 0.74 MG/DL Random Glucose 115 MG/DL 204 MG/DL Total Protein 7.8 GM/DL 7.5 GM/DL Albumin 4.2 GM/DL 4.1 GM/DL Calcium Level 9.4 MG/DL 9.0 MG/DL Alkaline Phosphatase 59 U/L 61 U/L Aspartate Amino Transf (AST/SGOT) 25 U/L 21 U/L Alanine Aminotransferase (ALT/SGPT) 34 U/L 30 U/L Total Bilirubin 1.6 MG/DL 1.9 MG/DL Sodium Level 137 MEQ/L 136 MEQ/L Potassium Level 3.6 MEQ/L 3.5 MEQ/L Chloride Level 103 MEQ/L 102 MEQ/L Carbon Dioxide Level 21.6 MEQ/L 21.2 MEQ/L Anion Gap 12 MEQ/L 13 MEQ/L Estimat Glomerular Filtration Rate 68 ML/MIN 76 ML/MIN Thyroid Stimulating Hormone 3rd Gen 1.920 uIU/ML Blood Gas Puncture Site RT RADIAL Blood Gas Patient Temperature 98.6 Blood Gas HCO3 23 mmol/L Blood Gas Base Excess -0.6 mmol/L Blood Gas Oxygen Saturation 92 % Arterial Blood pH 7.46 Arterial Blood Partial Pressure CO2 33 mmHg Arterial Blood Partial Pressure O2 67 mmHg Arterial Blood Oxygen Content 17.9 Vol % Arterial Blood Carboxyhemoglobin 1.5 % Arterial Blood Methemoglobin 0.8 % Blood Gas Hemoglobin 13.9 G/DL Oxygen Delivery Device NASAL CANNULA Blood Gas Liter Flow 2 L/M Nasal Screen MRSA (PCR) MRSA NOT DETECTED Phosphorus Level 2.6 MG/DL Magnesium Level 1.9 MG/DL Test 08/09/17 04:17 Blood Urea Nitrogen 14 MG/DL Creatinine 0.57 MG/DL Random Glucose 148 MG/DL Calcium Level 8.8 MG/DL Sodium Level 143 MEQ/L Potassium Level 4.2 MEQ/L Chloride Level 110 MEQ/L Carbon Dioxide Level 23.2 MEQ/L Anion Gap 10 MEQ/L Estimat Glomerular Filtration Rate 102 ML/MIN (Bonifacio Harrell) Medical Decision Making Impression and Plan The Impression & Plan are carried forward from the note of except for deletion of the authors daily impression and as noted Modified. Impression: 1. The patient presents with a right frontal and left occipital brain lesion, probable hemorrhagic component. These are most consistent with metastatic brain lesions. 2. New onset seizure activity related to brain lesions. Plan: Discussed plan of care with the patient's family. Primary management per Agriculture Department Chair/Hospitalist. Will take for resection of the right frontal & left occipital brain lesions. ( Modified) Will obtain MRI brain w/o & w/contrast w/brain lab prior to surgery under Anaesthesia. (Modified) NPO. (Modified) Frequent neuro checks. Stat CT brain for any worsening in neuro status. Continue phenytoin. Ulcer prophylaxis. Continue dexamethasone for edema surrounding the lesions. Appreciate Oncology's assistance and input. (Bonifacio Harrell) Attending Statement The exam, history, and the medical decision-making described in the above note were completed with the assistance of the mid-level provider. I reviewed and agree with the findings presented. I attest that I had a [id number] encounter with the patient on the same day, and personally performed and documented my assessment and findings in the medical record. Patient's preoperative exam stable on 08/09/2017 Discuss plans with family again preoperative. (Jonny Fernando MD) Bonifacio Harrell Aug 09, 2017 09:49 Jonny Fernando MD Aug 10, 2017 20:18
[2017-08-09] MEDS ORDERED: THROMBIN (TOPICAL) 5,000 UNIT VIAL ONE ×4 (10:22→14:11)
[2017-08-09] MEDS ORDERED: LIDOCAINE 2%/EPINEPHrine PF 1:200,000 20ML SDV ONE ×2 (10:22)
[2017-08-09] MEDS ORDERED: GELFOAM SIZE 100 ONE ×4 (10:22→14:08)
[2017-08-09] MEDS ORDERED: GENTAMICIN SULFATE 80 MG/2 ML VIAL ONE ×2 (10:23)
[2017-08-09] MEDS ORDERED: GADODIAMIDE PF 287 MG/ML 20 ML VIAL (for RAD MRI) IVCONTRAST ONE ×2 (10:55)
[2017-08-09] MEDS ORDERED: LIDOCAINE 1%/EPINEPHrine 1:100,000 SOLN 50 ML VIAL ONE ×2 (11:13)
[2017-08-09] MEDS: SODIUM CHLOR 0.9% 1000 ML INJ 1,000 ML IV SCH ×2 (12:00)
--- NOTE | 2017-08-09 12:23 | RADRPT ---
EXAM DATE/TIME: 08/09/2017 10:31 [place] COMPARISON: No previous studies available for comparison. INDICATIONS : Mass. CONTRAST: 16 cc Omniscan (gadodiamide) IV MEDICAL HISTORY : Gastroesophageal reflux disease. SURGICAL HISTORY : Appendectomy. ENCOUNTER: Subsequent ACUITY: 3 day PAIN SCORE: 0/10 LOCATION: head. TECHNIQUE: Multiplanar, multisequence MRI of the brain was performed both prior to and following the administrat ion of paramagnetic contrast. FINDINGS: Heterogeneously enhancing intra-axial masses are seen of the right frontal and left parieto-occipital lobes measuring approximately 17 and 23 mm, respectively. Small subacute and moderate chronic hemorr walter present around both lesions, especially posteriorly. There is also some surrounding cerebral ramiro ma. However, mass effect is minimal. There is no measurable midline shift. No other mass or hemorrhage. No restricted diffusion. Mild to moderate chronic flair signal abnormali ty seen in the periventricular white matter of both cerebral hemispheres. No focal bone lesion demonstrated. CONCLUSION: Intra-axial masses of the right frontal and left parieto-occipital lobes likely metastatic disease. S ubacute and chronic blood products and edema are present around each lesion but without measurable mi dline shift. Kodi Gómez MD on August 09, 2017 at 12:19 Board Certified Radiologist. This report was verified electronically.
[2017-08-09] MEDS ORDERED: ceFAZolin INJ 1,000 MG VIAL IV ONE ×2 (12:52)
[2017-08-09] MEDS ORDERED: PROPOFOL 1000 MG/100 ML INJ 0 ML ONE ×2 (16:42)
--- NOTE | 2017-08-09 17:09 | PD.OP ---
Operative Report Date of Surgery: Aug 09, 2017 Preoperative Diagnosis: (1) Brain mass 1. Right frontal metastatic neoplasm 2. Left occipital metastatic neoplasm Postoperative Diagnosis: (1) Brain mass 1. Right frontal metastatic neoplasm 2. Left occipital metastatic neoplasm Procedure: 1. Left occipital craniotomy, resection neoplasm. 2. Use of intraoperative frameless stereotactic navigation for planning and resection of left occipital neoplasm 3. Right frontal craniotomy for resection neoplasm Anesthesia: Gen. Surgeon: Jonny Fernando Supervisor Drilling And Shooting(s): Mariela Umanzor Operation and Findings: Findings: 1. Firm left occipital neoplasm. Significant surrounding subacute parenchymal hematoma, significantly increased in size compared to initial CT scan. 2. Firm right frontal neoplasm with mild surrounding parenchymal hemorrhage. Procedure in detail: The patient was brought into the operating room and general endotracheal anesthesia induced without difficulty. Lines were established by anesthesia PRANAV hose and sequential compression devices were in place Harding catheter was in place Appropriate timeout procedure was performed with all personal present and in agreement Procedure #1: The patient was positioned in lateral decubitus position with all extremities appropriately padded. The head was placed in the 3-point fixation device and secured to the operating room table with the neck slightly flexed and the head mildly rotated. The BrainLab system was registered with the laser facial registration system and landmarks verified. The BrainLab system was used to araceli the initial scalp flap and craniotomy opening, and was further used extensively during the procedure to guide the resection of the neoplasm. The hair overlying the scalp incision was shaved with clippers, and the operative site was sterilely prepped and draped. 1% Xylocaine with epinephrine was used for local infiltration over the incision site which was made in a curvilinear fashion over the left occipital region and carried sharply down to the cranium. The scalp flap was elevated with the periosteal elevator and retracted with large scalp hooks. The orthopedic mechanic was used to place a bur hole, and the craniotome was used to incise the bone flap. 4-0 Nurolon dural tack up sutures placed through wire passing holes made along the edge of the craniotomy site were used as needed. The dura was opened in a cruciate fashion and the edges retracted with 4-0 Nurolon suture. There was moderate brain edema noted upon opening the dura. Patient was given Decadron during the procedure as needed. Upon opening the dura, the hematoma medial to the main tumor mass had dissected superficial to the cortical surface, and there was immediate subacute appearing hematoma coming forth from the subcortical region upon elevating the dura. The parenchyma overlying the hematoma cavity was opened and additional 12-15 mm with the bipolar forceps. The neoplasm was approached from within the posterior aspect of the hematoma site to avoid additional disruption of the parenchyma directly overlying the neoplasm. The neoplasm was circumferentially from the surrounding tissue with the [place] dissectors and the bipolar forceps with any bridging vessels coagulated with the bipolar forceps and incised with the microscissors. Any major vascular structures were carefully preserved. Cottonoid patties were used as needed to maintain the resection plane surrounding the tumor. The neoplasm was removed and primarily a single suction. The tumor and hematoma cavity was then carefully inspected and any residual neoplasm carefully resected and bleeding controlled with the bipolar forceps. A gross total resection of the lesion was achieved. There was no significant bleeding at the time of closure. The brain was soft and pulsatile at the time of closure The closure was performed with 4-0 Nurolon interrupted and running for the dura , titanium maxillofacial plates and screws to secure the bone flap, 2-0 Vicryl for the galeal closure, [place] for the skin closure. A sterile Prim[place] dressing was applied. The patient was turned back into supine position on the operating room table The 3-point head fixation device was removed Procedure #2: The right frontal region was prepped and draped in a sterile fashion 1% Xylocaine with epinephrine was used for local" of the incision site which was made in a normal skin crease just above the right supraorbital rim. The dissection of the underlying fascia and frontalis muscle was carried out with the Metzenbaum scissors in order to preserve all neurovascular structures. The small Heiss retractor was placed. The orthopedic mechanic was used to place a single dick hole at the right frontal region just above the level of the frontal sinus. The dura was coagulated with the bipolar forceps and opened in a cruciate fashion with the 11 blade knife. The intraoperative ultrasound was used to verify the location of the tumor and guide dissection of the overlying parenchyma down to the anterior border of the tumor. The microscope was moved into place and used for the remainder of the resection. The bipolar forceps and rotund dissectors were used to carefully dissect along the border of the tumor and any bridging vessels were cauterized with the bipolar forceps and incised with the microscissors. The main mass of the tumor was then removed and a single section. The tumor cavity was then carefully inspected under the microscope and any areas of residual neoplasm removed and the bleeding carefully controlled with the bipolar forceps and temporary application of Gelfoam and thrombin. The dura was partially closed with 4-0 Nurolon suture but was very thin and could not be completely closed. A piece of bovine pericardium was cut to the appropriate dimensions and placed at the small dick hole-craniectomy site. A careful inspection was made to ensure that the frontal sinus had not been entered. DuraSeal was then placed at the bur hole site over the bovine pericardium. A single bur hole titanium plate was then secured with titanium maxillofacial screws. The closure was performed with 3-0 Vicryl for the fascia and subcutaneous closure with 4-0 nylon running for the cutaneous closure. A dressing of sterile Mastisol and Steri-Strips was placed The patient was taken to recovery room in stable condition All counts were correct at the end of the case Estimated blood loss was 250 cc. Specimen of the neoplasm was sent to pathology for frozen and permanent section Jonny Fernando MD Aug 09, 2017 17:09
[2017-08-09] MEDS: niCARdipine INJ 25 MG in SODIUM CHLOR 0.9% 250 ML INJ 240 ML IV PRN ×12 (17:39→18:40)
--- NOTE | 2017-08-09 17:42 | HHI.CCPN ---
Subjective Remarks/Hospital Course The patient is a 81-year-old female without significant past medical history who presented to [facility] ED by her family due to altered mental status. According to the patient's son the patient was not feeling well yesterday. This afternoon he found her confused with difficulty speaking and was shaking in the extremities. There is no history of any seizure or malignancy. The patient also has difficulty with her speech, lethargic and complaining of headaches for one day. There is no history of any syncopal episode. On arrival to the ED the patient was hypertensive with blood pressure 176/72 and pulse of 92. CT scan of the brain showed two hyperdense masses with mild surrounding localized edema. She has a right frontal mass measuring 2.6 cm and left occipital lobe mass measuring 2.9 cm. The patient received a loading dose of Cerebyx in the ER for possible seizures and Ativan 1 mg IV x1 was given as well. She was seen by Dr. Fernando from neurosurgery and plan to proceed with MRI of the brain and oncology workup. 08/08: No seizures today. Protects airway. Objective Vital Signs Date Time Temp Pulse Resp B/P (MAP) Pulse Ox O2 Delivery O2 Flow Rate FiO2 08/09/17 17:11 98 50 08/09/17 10:00 84 08/09/17 08:00 97.7 14 127/61 (83) 08/09/17 07:00 Nasal Cannula 5.00 Intake and Output 08/09/17 08/09/17 08/10/17 08:00 16:00 00:00 Intake Total 0 ml Output Total 1100 ml Balance -1100 ml Result Diagram: 08/08/17 0401 08/09/17 0417 Objective Remarks HEENT: Atraumatic, normocephalic. Conjunctivae pink. Nonictericsclerae. Oral mucosa within normal. NECK: Supple. No JVD, adenopathy, thyromegaly. Trachea midline. CARDIOVASCULAR: Regular rate and rhythm. Normal S1-S2. No murmurs, rubs or gallops noted. LUNGS: Pulmonary exam bilateral equal air entry. No rales or wheezing. ABDOMEN: Soft, nontender, no distension. Positive bowel sounds. EXTREMITIES: No cyanosis, clubbing or edema. NEUROLOGIC: Lethargic and drowsy. Pupils equal, round, reactive to light and accommodation. Extraocular muscles intact. A/P Assessment and Plan IMPRESSION: 1. Right frontal 2.6 cm and left occipital 2.9 cm brain masses, suspicious for metastatic lesions. 2. Altered mental status. 3. New onset seizure activity. 4. Hypertension. RECOMMENDATIONS: 1. Monitor neuro status closely and avoid any sedatives. We will proceed with MRI of the brain and oncology workup. Discussed with Dr. Fernando from neurosurgery. The patient was given 1 gram loading dose of Cerebyx in the ED. We will continue with Cerebyx and add Decadron. 2. Check EEG. 3. Oxygen p.r.n. to maintain sats above 92%. 4. Bronchodilators on a p.r.n. basis. 5. Monitor heart rate and blood pressure closely and maintain MAP greater than [address]. [address] on hydralazine 10 mg IV q.6h p.r.n. for systolic blood pressure greater than 160. 6. Monitor renal function Is and Os and electrolyte replacement as needed. Place on IV fluids NS at 75 ml an hour. 7. Keep n.p.o. for now and will consult speech therapy for swallow evaluation. 8. Hold antibiotics at this time at there is no evidence of any infectious process. Monitor for signs infections which include fever and WBC. Panculture if spikes a fever. 9. We will proceed with a CT scan of the thorax along with CT abdomen and pelvis for further workup of her metastatic brain lesions. 10. We will consult medical oncology. 11. Place on sliding scale insulin with Accu-Cheks for glycemic control if needed. 12. GI prophylaxis with Protonix 40 mg daily and DVT prophylaxis with SCDs. Will hold off on chemical anticoagulation prophylaxis given brain masses. 13. The case discussed with Dr. Fernando from neuro surgery. Overall impression: Two lathe brain masses. CT chest and abdomen without obvious promary. Payam Almeida MD Aug 09, 2017 17:42
--- NOTE | 2017-08-09 17:46 | HHI.CCPN ---
Subjective Remarks/Hospital Course The patient is a 81-year-old female without significant past medical history who presented to [facility] ED by her family due to altered mental status. According to the patient's son the patient was not feeling well yesterday. This afternoon he found her confused with difficulty speaking and was shaking in the extremities. There is no history of any seizure or malignancy. The patient also has difficulty with her speech, lethargic and complaining of headaches for one day. There is no history of any syncopal episode. On arrival to the ED the patient was hypertensive with blood pressure 176/72 and pulse of 92. CT scan of the brain showed two hyperdense masses with mild surrounding localized edema. She has a right frontal mass measuring 2.6 cm and left occipital lobe mass measuring 2.9 cm. The patient received a loading dose of Cerebyx in the ER for possible seizures and Ativan 1 mg IV x1 was given as well. She was seen by Dr. Fernando from neurosurgery and plan to proceed with MRI of the brain and oncology workup. 08/08: No seizures today. Protects airway. 08/09: MRI appears to be metastatic lesions. Bilateral craniotomies today with resection of masses. Objective Vital Signs Date Time Temp Pulse Resp B/P (MAP) Pulse Ox O2 Delivery O2 Flow Rate FiO2 08/09/17 17:11 98 50 08/09/17 10:00 84 08/09/17 08:00 97.7 14 127/61 (83) 08/09/17 07:00 Nasal Cannula 5.00 Intake and Output 08/09/17 08/09/17 08/10/17 08:00 16:00 00:00 Intake Total 0 ml Output Total 1100 ml Balance -1100 ml Result Diagram: 08/08/17 0401 08/09/17 0417 Objective Remarks HEENT: Atraumatic, normocephalic. Conjunctivae pink. Nonicteric sclerae. Oral mucosa within normal. NECK: Supple. No JVD, adenopathy, thyromegaly. Trachea midline. CARDIOVASCULAR: Regular rate and rhythm. Normal S1-S2. No murmurs, rubs or gallops noted. LUNGS: Pulmonary exam bilateral equal air entry. No rales or wheezing. ABDOMEN: Soft, nontender, no distension. Positive bowel sounds. EXTREMITIES: No cyanosis, clubbing or edema. NEUROLOGIC: Sedated. Pupils equal, round, reactive to light and accommodation. Extraocular muscles intact. A/P Assessment and Plan IMPRESSION: 1. Right frontal 2.6 cm and left occipital 2.9 cm brain masses, suspicious for metastatic lesions. 2. Altered mental status. 3. New onset seizure activity. 4. Hypertension. RECOMMENDATIONS: 1. Monitor neuro status closely and avoid any sedatives. We will proceed with MRI of the brain and oncology workup. Discussed with Dr. Fernando from neurosurgery. The patient was given 1 gram loading dose of Cerebyx in the ED. We will continue with Cerebyx and add Decadron. 2. Check EEG. 3. Oxygen p.r.n. to maintain sats above 92%. 4. Bronchodilators on a p.r.n. basis. 5. Monitor heart rate and blood pressure closely and maintain MAP greater than [address] on hydralazine 10 mg IV q.6h p.r.n. for systolic blood pressure greater than 160. 6. Monitor renal function Is and Os and electrolyte replacement as needed. 7. Keep n.p.o. for now. 8. Hold antibiotics at this time at there is no evidence of any infectious process. 11. Place on sliding scale insulin with Accu-Cheks for glycemic control if needed. 12. GI prophylaxis with Protonix 40 mg daily and DVT prophylaxis with SCDs. Will hold off on chemical anticoagulation prophylaxis given brain masses. Overall impression: Two brain masses, path pending s/p resections. CT chest and abdomen without obvious primary. Payam Almeida MD Aug 09, 2017 17:46
[2017-08-09] MEDS ORDERED: DO NOT ADM ANY ANTICOAGULANT DRUGS PRN ×2 (18:15)
[2017-08-09] MEDS ORDERED: PROPOFOL 1000 MG/100 ML IV PRN ×2 (18:15)
[2017-08-09] MEDS: HYDROmorphone HCL PF 0.5 MG/0.5 ML SYRINGE IV PUSH PRN ×2 (23:04)
[2017-08-10] VITALS (14 sets, daily range): BP systolic 117–148; BP diastolic 56–62; PULSE 80–115; RESP 16–26; TEMP 98.2–99.7; O2SAT 94–99
[2017-08-10] MEDS ORDERED: ATROPINE SULFATE 1 MG/10 ML SYRINGE ONE ×2 (03:43)
[2017-08-10] MEDS ORDERED: EPINEPHrine HCL (1:10,000) 1 MG/10 ML SYRINGE ONE ×2 (03:43)
[2017-08-10] MEDS ORDERED: LIDOCAINE HCL 2% 100 MG/5 ML SYRINGE ONE ×2 (03:44)
[2017-08-10] MEDS: DEXMEDETOMIDINE INJ 200 MCG in SODIUM CHLORIDE 0.9% INJ 50 ML IV PRN ×4 (03:53)
[2017-08-10] MEDS: SODIUM CHLOR 0.9% 1000 ML INJ 1,000 ML IV SCH ×6 (03:54→18:16)
[2017-08-10] MEDS: INSULIN NovoLIN REGULAR SUPPLEMENTAL SCALE SQ SCH ×8 (04:00→12:00)
[2017-08-10] MEDS: CHLORHEXIDINE GLUCONATE 2 % 1 PACK (2 CLOTHS) TOP SCH ×2 (04:00)
[2017-08-10 04:35] LABS: AUTOMATED NEUTROPHIL # 9.8 TH/MM3 (1.8-7.7); BASOPHIL % 0.1 % (0.0-2.0); EOSINOPHIL % 0.1 % (0.0-4.0); HEMATOCRIT 30.2 % (35.0-46.0); HEMOGLOBIN 10.8 GM/DL (11.6-15.3); LYMPH % 4.6 % (9.0-44.0); LYMPHOCYTE # 0.5 TH/MM3 (1.0-4.8); MEAN CELL VOLUME 88.8 FL (80.0-100.0); MEAN CORPUSCULAR HEMOGLOBIN 31.7 PG (27.0-34.0); MEAN CORPUSCULAR HGB CONC 35.7 % (32.0-36.0); MEAN PLATELET VOLUME 7.8 FL (7.0-11.0); MONO % 6.4 % (0.0-8.0); MONOCYTE # 0.7 TH/MM3 (0-0.9); NEUT % 88.8 % (16.0-70.0); PLATELET COUNT 161 TH/MM3 (150-450); RED CELL DISTRIBUTION WIDTH 14.3 % (11.6-17.2)
[2017-08-10] MEDS: RESP: ALBUTEROL 2.5 MG/IPRATROPIUM 0.5 MG NEB (SCH) INH ×8 (04:40→20:37)
[2017-08-10 04:58] LABS: BICARBONATE 25.5 MEQ/L (21.0-32.0); CALCIUM 7.8 MG/DL (8.5-10.1); CREATININE 0.53 MG/DL (0.50-1.00)
[2017-08-10 05:00] LABS: PROTHROMBIN TIME - PATIENT 10.8 SEC (9.8-11.6)
--- NOTE | 2017-08-10 05:09 | RADRPT ---
EXAM DATE/TIME: 08/10/2017 04:51 [place] COMPARISON: MRI BRAIN W & W/O CONTRAST, August 09, 2017, 10:31. CT BRAIN W/O CONTRAST, August 07, 2017, 17:2 6. INDICATIONS : Post op occipital and frontal craniotomy. RADIATION DOSE: 37.57 CTDIvol (mGy) ; Patient motion MEDICAL HISTORY : None SURGICAL HISTORY : Craniotomy. ENCOUNTER: Initial ACUITY: 1 day PAIN SCALE: Non-responsive LOCATION: cranial TECHNIQUE: Multiple contiguous axial images were obtained of the head. Using automated exposure control and adj ustment of the mA and/or kV according to patient size, radiation dose was kept as low as reasonably a chievable to obtain optimal diagnostic quality images. DICOM format image data is available electro nically for review and comparison. FINDINGS: Interim right frontal and left parietal craniotomy and tumor resection. Trace parenchymal hemorrhage and mild pneumocephaly noted. There is focal left right heel subdural hemorrhage measuring approximat marjorie 8.5 mm in maximal thickness. No measurable midline shift. No new mass lesion. No evidence of an i schemic event. CONCLUSION: Intra-axial masses of the right frontal and left parietal lobes have been resected. Mild hemorrhage a nd pneumocephaly in the resection bed and also a small left parietal subdural hematoma. No midline sh ift. Kodi Gómez MD on August 10, 2017 at 5:05 Board Certified Radiologist. This report was verified electronically.
[2017-08-10] MEDS: DEXAMETHASONE SOD PHOS 4 MG/ML VIAL IV PUSH SCH ×8 (05:15→22:28)
--- NOTE | 2017-08-10 07:38 | HHI.CCPN ---
Subjective Remarks/Hospital Course The patient is a 81-year-old female without significant past medical history who presented to [facility] ED by her family due to altered mental status. According to the patient's son the patient was not feeling well yesterday. This afternoon he found her confused with difficulty speaking and was shaking in the extremities. There is no history of any seizure or malignancy. The patient also has difficulty with her speech, lethargic and complaining of headaches for one day. There is no history of any syncopal episode. On arrival to the ED the patient was hypertensive with blood pressure 176/72 and pulse of 92. CT scan of the brain showed two hyperdense masses with mild surrounding localized edema. She has a right frontal mass measuring 2.6 cm and left occipital lobe mass measuring 2.9 cm. The patient received a loading dose of Cerebyx in the ER for possible seizures and Ativan 1 mg IV x1 was given as well. She was seen by Dr. Fernando from neurosurgery and plan to proceed with MRI of the brain and oncology workup. 08/08: No seizures today. Protects airway. 08/09: MRI appears to be metastatic lesions. Bilateral craniotomies today with resection of masses. 08/10: Recovering well after craniotomy. Requiring Precedex to keep calm - confused, agitated. Objective Vital Signs Date Time Temp Pulse Resp B/P (MAP) Pulse Ox O2 Delivery O2 Flow Rate FiO2 08/10/17 07:00 Nasal Cannula 5.00 08/10/17 06:00 80 08/10/17 04:42 96 08/10/17 04:00 98.9 16 117/60 (79) 08/09/17 19:15 40 Intake and Output 08/10/17 08/10/17 08/11/17 08:00 16:00 00:00 Intake Total 798 ml Output Total 550 ml Balance 248 ml Result Diagram: 08/10/17 0415 08/10/17414 Objective Remarks HEENT: Atraumatic, normocephalic. Conjunctivae pink. Nonicteric sclerae. Oral mucosa within normal. NECK: Supple. No JVD, adenopathy, thyromegaly. Trachea midline. CARDIOVASCULAR: Regular rate and rhythm. Normal S1-S2. No murmurs, rubs or gallops noted. LUNGS: Pulmonary exam bilateral equal air entry. No rales or wheezing. ABDOMEN: Soft, nontender, no distension. Positive bowel sounds. EXTREMITIES: No cyanosis, clubbing or edema. NEUROLOGIC: Precedex infusing. Pupils equal, round, reactive to light and accommodation. Extraocular muscles intact. Tracks. A/P Assessment and Plan IMPRESSION: 1. Right frontal 2.6 cm and left occipital 2.9 cm brain masses, suspicious for metastatic lesions. 2. Altered mental status. 3. New onset seizure activity. 4. Hypertension. RECOMMENDATIONS: 1. Precedex sedation. 3. Oxygen p.r.n. to maintain sats above 92%. 4. Bronchodilators on a p.r.n. basis. 5. Continue hydralazine 10 mg IV q.6h p.r.n. for systolic blood pressure greater than 160. 6. Monitor renal function Is and Os and electrolyte replacement as needed. 7. Keep n.p.o. for now. 8. Hold antibiotics at this time at there is no evidence of any infectious process. 11. Place on sliding scale insulin with Accu-Cheks for glycemic control if needed. 12. GI prophylaxis with Protonix 40 mg daily and DVT prophylaxis with SCDs. Will hold off on chemical anticoagulation prophylaxis given brain masses. 13. Followup on pathology from brain masses. Overall impression: Two brain masses, path pending s/p resections. CT chest and abdomen without obvious primary. Payam Almeida MD Aug 10, 2017 07:37
[2017-08-10] MEDS: levETIRAcetam INJ 500 MG in SODIUM CHLORIDE 0.9% INJ 100 ML IV SCH ×8 (07:45→20:24)
--- NOTE | 2017-08-10 08:46 | HHI.NSPN ---
(Bonifacio Harrell) History Chief Complaint: Headache, better with HOB elevated. (Bonifacio Harrell) Interval History 08/07: 81-year-old female who was brought to the emergency room by her family due to changes in mental status. She lives at home with her family. They state that when they came home this afternoon, their daughter noticed that the patient was confused and not speaking normally. She was also noted to have somewhat diffuse shaking or tremor in the upper greater than lower extremities. She had difficulty ambulating. She has no history of seizures. No history of cancer. The family states that the patient has not complained of any recent problems up until yesterday, including no headaches, dizziness, memory loss, gait difficulty. No recent fevers. 08/08: The patient is mildly lethargic when seen and responds to voice. Her family is visiting with her. She states that she wants to be left alone and is noncooperative. Her speech is slurred and at times incomprehensible. She does endorse a headache. 08/09: The patient is seen in rounds with Dr Fernando this morning. She is asleep but opens her eyes to voice. She denies any headache when asked. 08/10: The patient went down for an MRI brain prior to going to surgery for a left occipital and right frontal craniotomies for resection of neoplasms. Post- operatively the patient returned to the [facility] for further care and monitoring. When seen this morning the patient states she is doing better now. She does endorse a headache which improved after the head of the bed was raised some. She has no nausea. (Bonifacio Harrell) System Review Comments GASTROINTESTINAL: No nausea. NEUROLOGICAL: Slight headache that is better with the HOB elevated. No pain, numbness, tingling or weakness to the extremities. (Bonifacio Harrell) Exam Results 08/08/17 08/08/17 08/09/17 08/09/17 08/10/17 08/10/17 06:00 18:00 06:00 18:00 06:00 18:00 Intake Total 168 ml 639 ml 100 ml 7122 ml 798 ml Output Total 300 ml 1300 ml 1100 ml 850 ml 950 ml Balance -132 ml -661 ml -1000 ml 6272 ml -152 ml Intake Oral 0 ml IV Total 168 ml 639 ml 100 ml 4422 ml 798 ml Other 2700 ml Output Urine Total 300 ml 1300 ml 1100 ml 600 ml 950 ml Estimated Blood Loss 250 ml # Voids 1 3 # Bowel Movements 0 0 0 0 Vital Signs Date Time Temp Pulse Resp B/P (MAP) Pulse Ox O2 Delivery O2 Flow Rate FiO2 08/10/17 08:00 98.4 82 24 130/57 (81) 96 Automatic Cuff 08/10/17 08:00 82 08/10/17 07:00 Nasal Cannula 5.00 08/10/17 06:00 80 08/10/17 04:42 96 Nasal Cannula 3.00 08/10/17 04:00 98.9 90 16 117/60 (79) 95 08/10/17 04:00 90 08/10/17 00:00 99.7 114 21 137/60 (85) 94 08/10/17 00:00 114 08/09/17 22:00 124 08/09/17 21:35 97 Nasal Cannula 2.00 08/09/17 20:15 97.7 106 18 140/60 (86) 95 08/09/17 20:15 106 08/09/17 20:00 97 Nasal Cannula 5.00 08/09/17 19:55 105 16 127/53 (77) 96 Nasal Cannula 5 08/09/17 19:45 107 16 135/52 (79) 96 Nasal Cannula 5 08/09/17 19:30 98.8 101 16 127/51 (76) 94 Nasal Cannula 5 08/09/17 19:15 109 16 107/54 (71) 100 Mechanical Ventilator 40 08/09/17 19:00 112 16 111/50 (70) 98 Mechanical Ventilator 40 08/09/17 18:45 111 16 102/50 (67) 100 Mechanical Ventilator 40 08/09/17 18:40 111 102/50 08/09/17 18:30 119 16 126/66 (86) 99 Mechanical Ventilator 40 08/09/17 18:23 118 111/50 08/09/17 18:15 115 16 125/62 (83) 97 Mechanical Ventilator 40 08/09/17 18:00 111 16 130/67 (88) 98 Mechanical Ventilator 50 08/09/17 17:45 95 16 126/68 (87) 97 Mechanical Ventilator 50 08/09/17 17:39 94 141/66 08/09/17 17:30 92 16 121/65 (83) 97 Mechanical Ventilator 50 08/09/17 17:13 50 08/09/17 17:13 96.2 92 16 107/53 (71) 98 Mechanical Ventilator 50 08/09/17 17:11 98 50 08/09/17 10:00 84 08/09/17 08:00 97.7 68 14 127/61 (83) 94 08/09/17 08:00 68 08/09/17 07:00 95 Nasal Cannula 5.00 08/09/17 06:00 72 08/09/17 04:00 97.6 67 13 124/59 (80) 98 08/09/17 04:00 67 08/09/17 02:00 74 08/09/17 00:58 97 Nasal Cannula 4.00 08/09/17 00:00 98.4 68 14 127/63 (84) 98 08/09/17 00:00 71 08/08/17 22:00 78 08/08/17 20:50 98 Nasal Cannula 4.00 08/08/17 20:00 98.0 78 13 105/61 (76) 97 08/08/17 20:00 78 08/08/17 19:00 98 Nasal Cannula 3.00 08/08/17 18:00 99 08/08/17 16:00 98.1 90 15 151/72 (98) 99 08/08/17 16:00 90 08/08/17 14:00 79 08/08/17 12:00 98.3 94 21 140/63 (88) 91 08/08/17 12:00 90 08/08/17 11:09 95 Nasal Cannula 2.00 08/08/17 10:00 98 08/08/17 08:00 97.3 112 26 155/92 (113) 98 08/08/17 08:00 112 08/08/17 07:00 98 Nasal Cannula 3.00 08/08/17 06:00 116 08/08/17 04:00 104 08/08/17 04:00 99.5 98 28 149/60 (89) 98 08/08/17 02:00 118 08/08/17 00:00 101 08/08/17 00:00 99.5 100 26 144/73 (96) 92 08/07/17 22:00 104 08/07/17 21:25 95 Nasal Cannula 2.00 08/07/17 20:30 97 08/07/17 20:00 98.5 97 20 118/81 (93) 99 08/07/17 18:19 90 20 177/82 (113) 94 Room Air 08/07/17 17:10 98.3 92 28 176/72 (106) 94 (Bonifacio Harrell) Physical Examination GENERAL: Awake & alert, readily interacts, affect essentially normal, no apparent distress. HEENT: Right frontal craniotomy surgical incision over eyebrow & left occipital surgical incision. PERRLA 3 mm brisk, EOMI. MMM & pink, tongue midline to protrusion. SKIN: Dry & intact steri-strips to right frontal craniotomy incision mildly TTP over right eyebrow, no drainage, erythema or streaking. Left occipital craniotomy incision mildly TTP w/dried sanguinous drainage to intact dressing. MUSCULOSKELETAL: BURNS spontaneously w/o difficulty. NEUROLOGICAL: AA&O x2 (person & place but not time). Speech clear & appropriate most times, some confusion. Follows simple commands but did require some instruction/demonstration. CN II-XII appear grossly intact. Sensation intact to light touch to all extremities. Motor strength appears to be 5/5 to all major flexion & extension muscle groups. (Bonifacio Harrell) Lab, Micro, Other Results The practitioner reviewed the CT brain completed this morning and compared it with the CT done on . The images demonstrate resection of the right frontal and left occipital masses w/some haemorrhage and pneumocephaly to the resection beds. There is a small left occipital SDH noted along the flap. No evident midline shift. Recent Impressions Head CT 08/10/17 0600 Signed Impressions: Service Date/Time: Thursday, August 10, 2017 04:51 - CONCLUSION: Intra-axial masses of the right frontal and left parietal lobes have been resected. Mild hemorrhage and pneumocephaly in the resection bed and also a small left parietal subdural hematoma. No midline shift. Kodi Gómez MD Brain MRI 08/09/17 0000 Signed Impressions: Service Date/Time: August 10:31 - CONCLUSION: Intra- axial masses of the right frontal and left parieto-occipital lobes likely metastatic disease. Subacute and chronic blood products and edema are present around each lesion but without measurable midline shift. Kodi Gómez MD Head CT 08/07/173 Signed Impressions: Service Date/Time: Monday, August 07, 2017 17:26 - CONCLUSION: There are 2 hyperdense supratentorial masses, right frontal and left occipital, highly suspicious for metastatic lesions. The case has been discussed with Dr. Interiano. Jeremy Bardales MD Chest X-Ray 08/07/[id number] Signed Impressions: Service Date/Time: Monday, August 07, 2017 17:56 - CONCLUSION: No acute disease. Ap Bashir MD Laboratory Tests Test 08/07/17 17:30 08/07/17 21:02 08/07/17 23:00 08/08/17 04:01 White Blood Count 8.6 TH/MM3 8.6 TH/MM3 Red Blood Count 4.78 MIL/MM3 4.78 MIL/MM3 Hemoglobin 14.7 GM/DL 14.6 GM/DL Hematocrit 41.9 % 41.6 % Mean Corpuscular Volume 87.8 FL 87.1 FL Mean Corpuscular Hemoglobin 30.7 PG 30.6 PG Mean Corpuscular Hemoglobin Concent 35.0 % 35.1 % Red Cell Distribution Width 13.8 % 13.9 % Platelet Count 202 TH/MM3 205 TH/MM3 Mean Platelet Volume 8.1 FL 7.9 FL Neutrophils (%) (Auto) 70.4 % 93.5 % Lymphocytes (%) (Auto) 20.6 % 5.7 % Monocytes (%) (Auto) 6.6 % 0.5 % Eosinophils (%) (Auto) 1.8 % 0.0 % Basophils (%) (Auto) 0.6 % 0.3 % Neutrophils # (Auto) 6.1 TH/MM3 8.0 TH/MM3 Lymphocytes # (Auto) 1.8 TH/MM3 0.5 TH/MM3 Monocytes # (Auto) 0.6 TH/MM3 0.0 TH/MM3 Eosinophils # (Auto) 0.2 TH/MM3 0.0 TH/MM3 Basophils # (Auto) 0.0 TH/MM3 0.0 TH/MM3 CBC Comment DIFF FINAL DIFF FINAL Differential Comment Prothrombin Time 10.6 SEC Prothromb Time International Ratio 1.0 RATIO Activated Partial Thromboplast Time 22.6 SEC Blood Urea Nitrogen 17 MG/DL 12 MG/DL Creatinine 0.81 MG/DL 0.74 MG/DL Random Glucose 115 MG/DL 204 MG/DL Total Protein 7.8 GM/DL 7.5 GM/DL Albumin 4.2 GM/DL 4.1 GM/DL Calcium Level 9.4 MG/DL 9.0 MG/DL Alkaline Phosphatase 59 U/L 61 U/L Aspartate Amino Transf (AST/SGOT) 25 U/L 21 U/L Alanine Aminotransferase (ALT/SGPT) 34 U/L 30 U/L Total Bilirubin 1.6 MG/DL 1.9 MG/DL Sodium Level 137 MEQ/L 136 MEQ/L Potassium Level 3.6 MEQ/L 3.5 MEQ/L Chloride Level 103 MEQ/L 102 MEQ/L Carbon Dioxide Level 21.6 MEQ/L 21.2 MEQ/L Anion Gap 12 MEQ/L 13 MEQ/L Estimat Glomerular Filtration Rate 68 ML/MIN 76 ML/MIN Thyroid Stimulating Hormone 3rd Gen 1.920 uIU/ML Blood Gas Puncture Site RT RADIAL Blood Gas Patient Temperature 98.6 Blood Gas HCO3 23 mmol/L Blood Gas Base Excess -0.6 mmol/L Blood Gas Oxygen Saturation 92 % Arterial Blood pH 7.46 Arterial Blood Partial Pressure CO2 33 mmHg Arterial Blood Partial Pressure O2 67 mmHg Arterial Blood Oxygen Content 17.9 Vol % Arterial Blood Carboxyhemoglobin 1.5 % Arterial Blood Methemoglobin 0.8 % Blood Gas Hemoglobin 13.9 G/DL Oxygen Delivery Device NASAL CANNULA Blood Gas Liter Flow 2 L/M Nasal Screen MRSA (PCR) MRSA NOT DETECTED Phosphorus Level 2.6 MG/DL Magnesium Level 1.9 MG/DL Test 08/09/17 04:17 08/10/17 04:15 Blood Urea Nitrogen 14 MG/DL 12 MG/DL Creatinine 0.57 MG/DL 0.53 MG/DL Random Glucose 148 MG/DL 149 MG/DL Calcium Level 8.8 MG/DL 7.8 MG/DL Sodium Level 143 MEQ/L 142 MEQ/L Potassium Level 4.2 MEQ/L 3.6 MEQ/L Chloride Level 110 MEQ/L 107 MEQ/L Carbon Dioxide Level 23.2 MEQ/L 25.5 MEQ/L Anion Gap 10 MEQ/L 10 MEQ/L Estimat Glomerular Filtration Rate 102 ML/MIN 111 ML/MIN White Blood Count 11.0 TH/MM3 Red Blood Count 3.40 MIL/MM3 Hemoglobin 10.8 GM/DL Hematocrit 30.2 % Mean Corpuscular Volume 88.8 FL Mean Corpuscular Hemoglobin 31.7 PG Mean Corpuscular Hemoglobin Concent 35.7 % Red Cell Distribution Width 14.3 % Platelet Count 161 TH/MM3 Mean Platelet Volume 7.8 FL Neutrophils (%) (Auto) 88.8 % Lymphocytes (%) (Auto) 4.6 % Monocytes (%) (Auto) 6.4 % Eosinophils (%) (Auto) 0.1 % Basophils (%) (Auto) 0.1 % Neutrophils # (Auto) 9.8 TH/MM3 Lymphocytes # (Auto) 0.5 TH/MM3 Monocytes # (Auto) 0.7 TH/MM3 Eosinophils # (Auto) 0.0 TH/MM3 Basophils # (Auto) 0.0 TH/MM3 CBC Comment DIFF FINAL Differential Comment Prothrombin Time 10.8 SEC Prothromb Time International Ratio 1.0 RATIO Activated Partial Thromboplast Time 22.5 SEC (Bonifacio Harrell) Medical Decision Making Impression and Plan Impression: 1. The patient presents with a right frontal and left occipital brain lesion, probable hemorrhagic component. These are most consistent with metastatic brain lesions. 2. New onset seizure activity related to brain lesions. The patient is doing well post-operatively and appears to have some improvement in mental status. Reviewed labs & imaging for today. Drop in haemoglobin, will monitor. CT brain demonstrates resection of right frontal & left parietal lobe masses. There is mild haemorrhage & pneumocephaly to the resection bed. There is also a small left parietal SDH. No midline shift. POD #1 () s/p : 1. Left occipital craniotomy, resection neoplasm. 2. Use of intraoperative frameless stereotactic navigation for planning and resection of left occipital neoplasm 3. Right frontal craniotomy for resection neoplasm Postoperative Diagnosis: (1) Brain mass 1. Right frontal metastatic neoplasm 2. Left occipital metastatic neoplasm Plan: Discussed plan of care with the patient's family. Primary management per Coding Assistant/Hospitalist. Frequent neuro checks. Stat CT brain for any worsening in neuro status. Continue phenytoin. Ulcer prophylaxis. Continue dexamethasone for edema surrounding the lesions. Appreciate Oncology's assistance and input. (Bonifacio Harrell) Attending Statement The exam, history, and the medical decision-making described in the above note were completed with the assistance of the mid-level provider. I reviewed and agree with the findings presented. I attest that I had a [id number] encounter with the patient on the same day, and personally performed and documented my assessment and findings in the medical record. Patient with good blood pressure control postoperative Dressings are dry and intact She remains awake and relatively alert Her speech is relatively coded today compared to initial admission, responding to simple questions appropriately. She knows the month, next holiday. She has where she is. She converses a little with her family No focal extremity motor deficit Postoperative CT scan 08/10/2017 is satisfactory without significant postoperative hemorrhage or edema or mass effect. Continue ISC observation today with possible transfer to floor over the weekend depending on her clinical course. She has weaned off Precedex today and remains relatively calm at this time without significant agitation (Jonny Fernando MD) Bonifacio Harrell Aug 10, 2017 08:46 Jonny Fernando MD Aug 10, 2017 20:20
[2017-08-10] MEDS: HYDROmorphone HCL PF 0.5 MG/0.5 ML SYRINGE IV PUSH PRN ×4 (12:26→17:27)
[2017-08-10] MEDS: LABETALOL HCL 100 MG/20 ML VIAL IV PUSH PRN ×2 (20:31)
--- NOTE | 2017-08-10 20:33 | PD.ONC.PN ---
Subjective Subjective Remarks Patient seen and examined, vital signs, medications, labs and operative notes reviewed. Pathology still pending. Subjectively; the patient is more awake, alert and oriented than she was when I first saw her 2 days ago. She tells me she is resting comfortably, she continues to have some headaches. Objective Data Date Time Temp Pulse Resp B/P (MAP) Pulse Ox O2 Delivery O2 Flow Rate FiO2 08/10/17 18:00 114 08/10/17 16:00 98 08/10/17 16:00 98.2 98 20 148/57 (87) 98 08/10/17 14:00 115 08/10/17 12:00 98.5 94 26 140/56 (84) 98 08/10/17 12:00 80 08/10/17 10:00 92 08/10/17 08:56 99 Nasal Cannula 5.00 08/10/17 08:30 99 Nasal Cannula 3.00 08/10/17 08:00 98.4 82 24 130/57 (81) 96 Automatic Cuff 08/10/17 08:00 82 08/10/17 07:00 Nasal Cannula 5.00 08/10/17 06:00 80 08/10/17 04:42 96 Nasal Cannula 3.00 08/10/17 04:00 98.9 90 16 117/60 (79) 95 08/10/17 04:00 90 08/10/17 00:00 99.7 114 21 137/60 (85) 94 08/10/17 00:00 114 08/09/17 22:00 124 08/09/17 21:35 97 Nasal Cannula 2.00 08/10/17 08/10/17 08/10/17 07:00 15:00 23:00 Intake Total 798 ml 135 ml 948 ml Output Total 550 ml 2000 ml Balance 248 ml 135 ml -1052 ml Result Diagram: 08/10/17 0415 08/10/17 0415 Laboratory Results Laboratory Tests Test 08/10/17 04:15 White Blood Count 11.0 TH/MM3 Red Blood Count 3.40 MIL/MM3 Hemoglobin 10.8 GM/DL Hematocrit 30.2 % Mean Corpuscular Volume 88.8 FL Mean Corpuscular Hemoglobin 31.7 PG Mean Corpuscular Hemoglobin Concent 35.7 % Red Cell Distribution Width 14.3 % Platelet Count 161 TH/MM3 Mean Platelet Volume 7.8 FL Neutrophils (%) (Auto) 88.8 % Lymphocytes (%) (Auto) 4.6 % Monocytes (%) (Auto) 6.4 % Eosinophils (%) (Auto) 0.1 % Basophils (%) (Auto) 0.1 % Neutrophils # (Auto) 9.8 TH/MM3 Lymphocytes # (Auto) 0.5 TH/MM3 Monocytes # (Auto) 0.7 TH/MM3 Eosinophils # (Auto) 0.0 TH/MM3 Basophils # (Auto) 0.0 TH/MM3 CBC Comment DIFF FINAL Differential Comment Prothrombin Time 10.8 SEC Prothromb Time International Ratio 1.0 RATIO Activated Partial Thromboplast Time 22.5 SEC Blood Urea Nitrogen 12 MG/DL Creatinine 0.53 MG/DL Random Glucose 149 MG/DL Calcium Level 7.8 MG/DL Sodium Level 142 MEQ/L Potassium Level 3.6 MEQ/L Chloride Level 107 MEQ/L Carbon Dioxide Level 25.5 MEQ/L Anion Gap 10 MEQ/L Estimat Glomerular Filtration Rate 111 ML/MIN Imaging Studies Last [address] 08/10/17 0600 Signed Impressions: Service Date/Time: Thursday, August 10, 2017 04:51 - CONCLUSION: Intra-axial masses of the right frontal and left parietal lobes have been resected. Mild hemorrhage and pneumocephaly in the resection bed and also a small left parietal subdural hematoma. No midline shift. Kodi Gómez MD Administered Medications Medications (Trade) Dose Ordered Sig/Courtney Route PRN Reason Start Time Stop Time Status Last Admin Dose Admin Albuterol/ Ipratropium (Duoneb Neb) 1 ampule Q6HR NEB INH 08/07/17 22:00 08/10/17 16:54 Sodium Chloride 1,000 ml @ 75 mls/hr [id number] IV 08/07/17 20:00 08/10/17 18:16 Hydralazine HCl (Apresoline Inj) 10 mg Q6H PRN IV PUSH SYS BP GREATER THAN 160 MMHG 08/07/17 19:30 08/08/17 02:06 Levetriacetam 500 mg/Sodium Chloride 105 ml @ 420 mls/hr Q12HR IV 08/07/17 21:00 08/10/17 07:45 Labetalol HCl (Trandate Inj) 10 mg Q6H PRN IV PUSH SYS BP GREATER THAN 160 MMHG 08/08/17 03:00 08/08/17 09:22 Dexmedetomidine HCl 200 mcg/ Sodium Chloride 52 ml @ 3.85 mls/hr TITRATE PRN IV SEDATION 08/08/17 08:00 08/10/17 03:53 Dexamethasone Sodium Phosphate (Decadron Inj) 6 mg Q6HR IV PUSH 08/08/17 12:00 08/10/17 17:39 Potassium Chloride 100 ml @ 50 mls/hr Q2H PRN IV For Potassium 3.3 - 3.5 mEq/L 08/08/17 13:00 08/08/17 18:50 Nicardipine HCl 25 mg/Sodium Chloride 250 ml @ 50 mls/hr TITRATE PRN IV Blood pressure management 08/09/17 17:00 08/09/17 18:40 Hydromorphone HCl (Dilaudid Pf Inj) 0.5 mg Q4H PRN IV PUSH Pain >5/10 08/09/17 23:00 08/10/17 17:27 Objective Remarks GENERAL PHYSICAL APPEARANCE: Ms. Crane is an elderly lady, she is sitting up in bed. She is awake and alert and oriented to place, person and situation. HEENT: Head atraumatic, normocephalic, conjunctivae are non pale. Sclerae are anicteric. ORAL EXAM: No pharyngeal erythema. Dry mucous membranes. NECK: No palpable cervical or supraclavicular lymphadenopathy. RESPIRATORY: Good air movement bilaterally. No added breath sounds. CARDIOVASCULAR: Regular rate and rhythm, S1-S2. No obvious murmurs, rubs or gallops. GI: Protuberant belly, soft, nontender, nondistended. No palpable organ enlargement. No inguinal lymphadenopathy. LOWER EXTREMITIES: No pretibial edema or calf tenderness. SKIN: There were no suspicious obvious lesions noted on her arms or anterior torso or on her legs. Assessment/Plan Assessment Ms. Crane is a 81-year-old female with no known medical comorbid conditions, she rarely followed up with a primary care physician. She presented with a 2-week history of progressive confusion, word searching, difficulty balancing and progressive headaches. She was brought into the emergency department by her son after the patient was found at home to be weak, unable to speak without stammering and was found on initial evaluation in the emergency department to have two hyperdense lesions within the brain. These were highly suspicious for metastatic lesions. No definite primary site in the thorax or abdomen was identified. The oncology service has been asked to see her for further management. Plan 1. Intracranial lesions: Now status post craniotomy with excisional biopsy of the right frontal lobe and left occipital parietal lobe masses. Await pathology. I suspect a Likely underlying metastatic malignancy. I will see her periodically during this hospitalization. Radhames Chang MD Aug 10, 2017 20:33
[2017-08-11] VITALS (11 sets, daily range): BP systolic 131–156; BP diastolic 52–77; PULSE 74–94; RESP 16–24; TEMP 98.2–98.9; O2SAT 94–100
[2017-08-11] MEDS: HYDROmorphone HCL PF 0.5 MG/0.5 ML SYRINGE IV PUSH PRN ×4 (00:23→20:38)
[2017-08-11] MEDS: CHLORHEXIDINE GLUCONATE 2 % 1 PACK (2 CLOTHS) TOP SCH ×2 (04:00)
[2017-08-11] MEDS: DEXAMETHASONE SOD PHOS 4 MG/ML VIAL IV PUSH SCH ×8 (04:25→22:20)
[2017-08-11 04:50] LABS: HEMATOCRIT 29.4 % (35.0-46.0); HEMOGLOBIN 10.5 GM/DL (11.6-15.3); MEAN CELL VOLUME 89.1 FL (80.0-100.0); MEAN CORPUSCULAR HEMOGLOBIN 31.7 PG (27.0-34.0); MEAN CORPUSCULAR HGB CONC 35.6 % (32.0-36.0); PLATELET COUNT 147 TH/MM3 (150-450); RED CELL DISTRIBUTION WIDTH 14.1 % (11.6-17.2); WHITE BLOOD COUNT 8.9 TH/MM3 (4.0-11.0)
[2017-08-11] MEDS: RESP: ALBUTEROL 2.5 MG/IPRATROPIUM 0.5 MG NEB (SCH) INH ×8 (04:52→21:28)
[2017-08-11 05:20] LABS: BICARBONATE 28.6 MEQ/L (21.0-32.0); CREATININE 0.47 MG/DL (0.50-1.00)
[2017-08-11] MEDS: LABETALOL HCL 100 MG/20 ML VIAL IV PUSH PRN ×2 (06:30)
[2017-08-11] MEDS: levETIRAcetam INJ 500 MG in SODIUM CHLORIDE 0.9% INJ 100 ML IV SCH ×8 (07:37→20:03)
[2017-08-11] MEDS ORDERED: cloNIDine HCL 0.1 MG TAB PO PRN ×2 (07:45)
--- NOTE | 2017-08-11 07:47 | HHI.PR ---
Subjective Remarks oriented. eating. comfortable. Objective Vitals heart reg lung cta abd s/nt ext no edema Vital Signs Date Time Temp Pulse Resp B/P (MAP) Pulse Ox O2 Delivery O2 Flow Rate FiO2 08/11/17 07:00 98 Nasal Cannula 2.00 08/11/17 06:00 80 08/11/17 04:54 95 Nasal Cannula 3.00 08/11/17 04:00 98.9 82 16 152/68 (96) 98 08/11/17 04:00 82 08/11/17 02:00 84 08/11/17 00:00 89 08/11/17 00:00 98.9 89 18 136/60 (85) 98 08/10/17 22:00 83 08/10/17 20:38 95 Nasal Cannula 3.00 08/10/17 20:00 108 08/10/17 20:00 98.6 108 21 142/62 (88) 96 08/10/17 19:00 96 Nasal Cannula 3.00 08/10/17 18:00 114 08/10/17 16:00 98 08/10/17 16:00 98.2 98 20 148/57 (87) 98 08/10/17 14:00 115 08/10/17 12:00 98.5 94 26 140/56 (84) 98 08/10/17 12:00 80 08/10/17 10:00 92 08/10/17 08:56 99 Nasal Cannula 5.00 08/10/17 08:30 99 Nasal Cannula 3.00 08/10/17 08:00 98.4 82 24 130/57 (81) 96 Automatic Cuff 08/10/17 08:00 82 Result Diagram: 08/11/17 0440 08/11/17 0440 A/P Problem List: (1) Brain mass ICD Codes: G93.9 - Disorder of brain, unspecified Status: Acute Plan: 1. left frontal, left occipito-parietal brain masses suspected metastatic lesions. unknown primary. 2. seizure activity 3. htn. uncontrolled plan add scheduled bp meds. plus prn po/iv control. await pathology of lesions. oncology following. continue keppra and decadron. PT/OOB. transfer out of ICU if ok with NSG dvt prophylaxis (2) Seizure ICD Codes: R56.9 - Unspecified convulsions Status: Acute (3) HTN (hypertension) ICD Codes: I10 - Essential (primary) hypertension Status: Acute Arthur Nguyễn MD Aug 11, 2017 07:47
[2017-08-11] MEDS: LISINOPRIL 10 MG TAB PO SCH ×4 (08:06→20:03)
[2017-08-11] MEDS: SODIUM CHLOR 0.9% 1000 ML INJ 1,000 ML IV SCH ×2 (08:48)
--- NOTE | 2017-08-11 10:56 | HHI.NSPN ---
(Salena Campos) Note Status Status: Progress Note (Salena Campos) Interval History Interval History 08/07: 81-year-old female who was brought to the emergency room by her family due to changes in mental status. She lives at home with her family. They state that when they came home this afternoon, their daughter noticed that the patient was confused and not speaking normally. She was also noted to have somewhat diffuse shaking or tremor in the upper greater than lower extremities. She had difficulty ambulating. She has no history of seizures. No history of cancer. The family states that the patient has not complained of any recent problems up until yesterday, including no headaches, dizziness, memory loss, gait difficulty. No recent fevers. 08/08: The patient is mildly lethargic when seen and responds to voice. Her family is visiting with her. She states that she wants to be left alone and is noncooperative. Her speech is slurred and at times incomprehensible. She does endorse a headache. 08/09: The patient is seen in rounds with Dr Fernando this morning. She is asleep but opens her eyes to voice. She denies any headache when asked. 08/10: The patient went down for an MRI brain prior to going to surgery for a left occipital and right frontal craniotomies for resection of neoplasms. Post- operatively the patient returned to the [facility] for further care and monitoring. When seen this morning the patient states she is doing better now. She does endorse a headache which improved after the head of the bed was raised some. She has no nausea. 08/11: doing better this am, nursing reports patient A&Ox3. moves ext x 4. no seizures (Salena Campos) Labs, Micro, & Vital Signs Results Date Time Temp Pulse Resp B/P (MAP) Pulse Ox O2 Delivery O2 Flow Rate FiO2 08/11/17 08:50 100 Nasal Cannula 3.00 08/11/17 08:00 98.8 74 17 145/57 (86) 97 08/11/17 08:00 74 08/11/17 07:00 98 Nasal Cannula 2.00 08/11/17 06:00 80 08/11/17 04:54 95 Nasal Cannula 3.00 08/11/17 04:00 98.9 82 16 152/68 (96) 98 08/11/17 04:00 82 08/11/17 02:00 84 08/11/17 00:00 89 08/11/17 00:00 98.9 89 18 136/60 (85) 98 08/10/17 22:00 83 08/10/17 20:38 95 Nasal Cannula 3.00 08/10/17 20:00 108 08/10/17 20:00 98.6 108 21 142/62 (88) 96 08/10/17 19:00 96 Nasal Cannula 3.00 08/10/17 18:00 114 08/10/17 16:00 98 08/10/17 16:00 98.2 98 20 148/57 (87) 98 08/10/17 14:00 115 08/10/17 12:00 98.5 94 26 140/56 (84) 98 08/10/17 12:00 80 08/12/17 07:00 Intake Total 316 ml Balance 316 ml Constitutional Vital Signs Date Time Temp Pulse Resp B/P (MAP) Pulse Ox O2 Delivery O2 Flow Rate FiO2 08/11/17 08:50 100 Nasal Cannula 3.00 08/11/17 08:00 98.8 74 17 145/57 (86) 97 08/11/17 08:00 74 08/11/17 07:00 98 Nasal Cannula 2.00 08/11/17 06:00 80 08/11/17 04:54 95 Nasal Cannula 3.00 08/11/17 04:00 98.9 82 16 152/68 (96) 98 08/11/17 04:00 82 08/11/17 02:00 84 08/11/17 00:00 89 08/11/17 00:00 98.9 89 18 136/60 (85) 98 08/10/17 22:00 83 08/10/17 20:38 95 Nasal Cannula 3.00 08/10/17 20:00 108 08/10/17 20:00 98.6 108 21 142/62 (88) 96 08/10/17 19:00 96 Nasal Cannula 3.00 08/10/17 18:00 114 08/10/17 16:00 98 08/10/17 16:00 98.2 98 20 148/57 (87) 98 08/10/17 14:00 115 08/10/17 12:00 98.5 94 26 140/56 (84) 98 08/10/17 12:00 80 08/12/17 07:00 Intake Total 316 ml Balance 316 ml (Salena Campos) Physical Exam Alert and oriented x name, place and year. Speech is fluent. Follows commands well. Surgical incision clean and dry. CN: pupils 4 mm equal. EOMs intact. Neck: soft, supple Motor: moves all four extremities off the bed Sensory: reports intact to light touch x 4 (Salena Campos) Medications Current Medications Current Medications Medications (Trade) Dose Ordered Sig/Courtney Route PRN Reason Start Time Stop Time Status Last Admin Dose Admin Albuterol/ Ipratropium (Duoneb Neb) 1 ampule Q2HR NEB PRN INH WHEEZING 08/07/17 19:00 Miscellaneous Information 1 [id number] XX 08/07/17 19:00 Chlorhexidine Gluconate (Chlorhexidine 2% Cloth) 3 pack Taper DAILY@04 TOP 08/08/17 04:00 08/04/18 03:59 Chlorhexidine Gluconate (Chlorhexidine 2% Cloth) 3 pack UNSCH PRN TOP HYGIENIC CARE 08/07/17 19:00 Sodium Chloride 1,000 ml @ 75 mls/hr [id number] IV 08/07/17 20:00 08/11/17 08:48 Hydralazine HCl (Apresoline Inj) 10 mg Q6H PRN IV PUSH SYS BP GREATER THAN 170 MMHG 08/07/17 19:30 08/08/17 02:06 Levetriacetam 500 mg/Sodium Chloride 105 ml @ 420 mls/hr Q12HR IV 08/07/17 21:00 08/11/17 07:37 Labetalol HCl (Trandate Inj) 10 mg Q6H PRN IV PUSH SYS BP GREATER THAN 170 MMHG 08/08/17 03:00 08/11/17 06:30 Dexamethasone Sodium Phosphate (Decadron Inj) 6 mg Q6HR IV PUSH 08/08/17 12:00 08/11/17 04:25 Hydromorphone HCl (Dilaudid Pf Inj) 0.5 mg Q4H PRN IV PUSH Pain >5/10 08/09/17 23:00 08/11/17 00:23 Albuterol/ Ipratropium (Duoneb Neb) 1 ampule Q6HR NEB INH 08/11/17 10:00 08/11/17 08:49 Lisinopril (Prinivil) 10 mg Q12HR PO 08/11/17 09:00 08/11/17 08:06 Clonidine (Catapres) 0.1 mg Q4H PRN PO sbp > 160 08/11/17 07:45 (Salena Campos) Medical Decision Making MDM Remarks 81 y/o female right frontal and left occipital brain lesion, probable hemorrhagic component. These are most consistent with metastatic brain lesions. new onset seizure activity related to brain lesions, controlled s/p Left occipital and right frontal craniotomy, resection neoplasm by Dr. Fernando on 08/09/17 patient doing well, clinically improving (Salena Campos) Plan Plan Remarks cont neuro checks, cont medical management therapy ad rehab efforts cont AEDs, seizure precautions cont Decadron, protonix for ulcer prophylaxis follow up pathology NRS stable to transfer out of [facility] to near nursing station & tele (Salena Campos) Attending Statement The exam, history, and the medical decision-making described in the above note were completed with the assistance of the mid-level provider. I reviewed and agree with the findings presented. I attest that I had a [id number] encounter with the patient on the same day, and personally performed and documented my assessment and findings in the medical record. (Gonzalo Rose MD) Salena Campos Aug 11, 2017 10:56 Gonzalo Rose MD Aug 12, 2017 20:26
[2017-08-12] VITALS (8 sets, daily range): BP systolic 142–154; BP diastolic 65–75; PULSE 70–116; RESP 15–25; TEMP 98.4–98.7; O2SAT 95–99
[2017-08-12] MEDS: RESP: ALBUTEROL 2.5 MG/IPRATROPIUM 0.5 MG NEB (SCH) INH ×6 (03:52→21:32)
[2017-08-12] MEDS: CHLORHEXIDINE GLUCONATE 2 % 1 PACK (2 CLOTHS) TOP SCH ×2 (04:00)
[2017-08-12] MEDS: HYDROmorphone HCL PF 0.5 MG/0.5 ML SYRINGE IV PUSH PRN ×4 (04:04→17:40)
[2017-08-12] MEDS: DEXAMETHASONE SOD PHOS 4 MG/ML VIAL IV PUSH SCH ×6 (04:05→17:22)
[2017-08-12] MEDS: SODIUM CHLOR 0.9% 1000 ML INJ 1,000 ML IV SCH ×2 (05:19)
--- NOTE | 2017-08-12 08:18 | HHI.PR ---
Subjective Remarks doing well.. sitting up in bed. Objective Vitals heart reg lung cta abd s/nt ext no edema barron 3 periph iv's Vital Signs Date Time Temp Pulse Resp B/P (MAP) Pulse Ox O2 Delivery O2 Flow Rate FiO2 08/12/17 07:00 96 Nasal Cannula 2.00 08/12/17 04:00 78 08/12/17 04:00 98.7 78 20 143/67 (92) 97 08/12/17 00:00 98.4 79 16 154/75 (101) 95 Arterial Line 08/12/17 00:00 79 08/11/17 21:28 96 Nasal Cannula 2.00 08/11/17 20:00 98.5 94 21 156/76 (102) 94 08/11/17 20:00 Nasal Cannula 2.00 08/11/17 16:00 98.2 84 24 143/77 (99) 100 08/11/17 16:00 84 08/11/17 12:00 98.7 83 24 131/52 (78) 100 08/11/17 12:00 83 08/11/17 08:50 100 Nasal Cannula 3.00 Result Diagram: 08/11/17 0440 08/11/17 0440 A/P Problem List: (1) Brain mass ICD Codes: G93.9 - Disorder of brain, unspecified Status: Acute Plan: 1. left frontal, left occipito-parietal brain masses suspected metastatic lesions. unknown primary. 2. seizure activity 3. htn. uncontrolled plan added scheduled bp meds. titrae prn.. plus prn po/iv control. await pathology of lesions. oncology following. continue keppra and decadron. convert keppra to po PT/OOB. transfer out of ICU dc beatrice and d/c ivf. dvt prophylaxis (2) Seizure ICD Codes: R56.9 - Unspecified convulsions Status: Acute (3) HTN (hypertension) ICD Codes: I10 - Essential (primary) hypertension Status: Acute Arthur Nguyễn MD Aug 12, 2017 08:18
[2017-08-12] MEDS ORDERED: ENALAPRILAT 1.25 MG/ML VIAL IV PUSH PRN ×2 (08:45)
[2017-08-12] MEDS: levETIRAcetam 500 MG TAB PO SCH ×4 (09:32→20:01)
[2017-08-12] MEDS: LISINOPRIL 10 MG TAB PO SCH ×4 (09:32→20:02)
--- NOTE | 2017-08-12 11:22 | HHI.NSPN ---
(Salena Campos) Note Status Status: Progress Note (Salena Campos) Interval History Interval History 08/07: 81-year-old female who was brought to the emergency room by her family due to changes in mental status. She lives at home with her family. They state that when they came home this afternoon, their daughter noticed that the patient was confused and not speaking normally. She was also noted to have somewhat diffuse shaking or tremor in the upper greater than lower extremities. She had difficulty ambulating. She has no history of seizures. No history of cancer. The family states that the patient has not complained of any recent problems up until yesterday, including no headaches, dizziness, memory loss, gait difficulty. No recent fevers. 08/08: The patient is mildly lethargic when seen and responds to voice. Her family is visiting with her. She states that she wants to be left alone and is noncooperative. Her speech is slurred and at times incomprehensible. She does endorse a headache. 08/09: The patient is seen in rounds with Dr Fernando this morning. She is asleep but opens her eyes to voice. She denies any headache when asked. 08/10: The patient went down for an MRI brain prior to going to surgery for a left occipital and right frontal craniotomies for resection of neoplasms. Post- operatively the patient returned to the [facility] for further care and monitoring. When seen this morning the patient states she is doing better now. She does endorse a headache which improved after the head of the bed was raised some. She has no nausea. 08/11: doing better this am, nursing reports patient A&Ox3. moves ext x 4. no seizures 08/12: sitting up in chair, family in room reports patient doing very well. denies headaches, focal weakness, fevers or chills. (Salena Campos) Labs, Micro, & Vital Signs Results Date Time Temp Pulse Resp B/P (MAP) Pulse Ox O2 Delivery O2 Flow Rate FiO2 08/12/17 08:00 86 08/12/17 08:00 98.6 85 25 146/68 (94) 97 08/12/17 07:00 96 Nasal Cannula 2.00 08/12/17 04:00 78 08/12/17 04:00 98.7 78 20 143/67 (92) 97 08/12/17 00:00 98.4 79 16 154/75 (101) 95 Arterial Line 08/12/17 00:00 79 08/11/17 21:28 96 Nasal Cannula 2.00 08/11/17 20:00 98.5 94 21 156/76 (102) 94 08/11/17 20:00 Nasal Cannula 2.00 08/11/17 16:00 98.2 84 24 143/77 (99) 100 08/11/17 16:00 84 08/11/17 12:00 98.7 83 24 131/52 (78) 100 08/11/17 12:00 83 Constitutional Vital Signs Date Time Temp Pulse Resp B/P (MAP) Pulse Ox O2 Delivery O2 Flow Rate FiO2 08/12/17 08:00 86 08/12/17 08:00 98.6 85 25 146/68 (94) 97 08/12/17 07:00 96 Nasal Cannula 2.00 08/12/17 04:00 78 08/12/17 04:00 98.7 78 20 143/67 (92) 97 08/12/17 00:00 98.4 79 16 154/75 (101) 95 Arterial Line 08/12/17 00:00 79 08/11/17 21:28 96 Nasal Cannula 2.00 08/11/17 20:00 98.5 94 21 156/76 (102) 94 08/11/17 20:00 Nasal Cannula 2.00 08/11/17 16:00 98.2 84 24 143/77 (99) 100 08/11/17 16:00 84 08/11/17 12:00 98.7 83 24 131/52 (78) 100 08/11/17 12:00 83 (Salena Campos) Review of Systems Constitutional: DENIES: Fever, Chills Cardiovascular: DENIES: Chest pain Neurologic: DENIES: Headache, Seizures (Salena Campos) Physical Exam Alert and oriented x name, place and year. Speech is fluent. Follows commands well. Sitting up in chair. Surgical incision healing well, clean and dry. CN: pupils 4 mm equal. EOMs intact. facial motor symmetric. Neck: soft, supple Motor: moves all four extremities 4/5 grossly symmetric Sensory: reports intact to light touch x 4 (Salena Campos) Medications Current Medications Current Medications Medications (Trade) Dose Ordered Sig/Courtney Route PRN Reason Start Time Stop Time Status Last Admin Dose Admin Albuterol/ Ipratropium (Duoneb Neb) 1 ampule Q2HR NEB PRN INH WHEEZING 08/07/17 19:00 Miscellaneous Information 1 Q361D XX 08/07/17 19:00 Chlorhexidine Gluconate (Chlorhexidine 2% Cloth) 3 pack Taper DAILY@04 TOP 08/08/17 04:00 08/04/18 03:59 Chlorhexidine Gluconate (Chlorhexidine 2% Cloth) 3 pack UNSCH PRN TOP HYGIENIC CARE 08/07/17 19:00 Dexamethasone Sodium Phosphate (Decadron Inj) 6 mg Q6HR IV PUSH 08/08/17 12:00 08/12/17 04:05 Hydromorphone HCl (Dilaudid Pf Inj) 0.5 mg Q4H PRN IV PUSH Pain >5/10 08/09/17 23:00 08/12/17 04:04 Albuterol/ Ipratropium (Duoneb Neb) 1 ampule Q6HR NEB INH 08/11/17 10:00 08/12/17 03:52 Lisinopril (Prinivil) 10 mg Q12HR PO 08/11/17 09:00 08/12/17 09:32 Clonidine (Catapres) 0.1 mg Q4H PRN PO sbp > 160 08/11/17 07:45 Acetaminophen (Tylenol) 650 mg Q4H PRN PO fever, headache 08/11/17 13:45 Levetriacetam (Keppra) 500 mg Q12HR PO 08/12/17 09:00 08/12/17 09:32 Enalaprilat (Vasotec Inj) 1.25 mg Q4H PRN IV PUSH sbp > 170 08/12/17 08:45 (Salena Campos) Medical Decision Making MDM Remarks 81 y/o female right frontal and left occipital brain lesion, probable hemorrhagic component. These are most consistent with metastatic brain lesions. new onset seizure activity related to brain lesions, controlled s/p Left occipital and right frontal craniotomy, resection neoplasm by Dr. Fernando on 08/09/17 patient doing well, clinically improving (Salena Campos) Plan Plan Remarks cont neuro checks, cont medical management therapy ad rehab efforts cont AEDs, seizure precautions cont Decadron, protonix for ulcer prophylaxis cont follow up pathology still pending NRS stable to transfer out [facility] to 5N near nursing station & tele (Salena Campos) Attending Statement The exam, history, and the medical decision-making described in the above note were completed with the assistance of the mid-level provider. I reviewed and agree with the findings presented. I attest that I had a [id number] encounter with the patient on the same day, and personally performed and documented my assessment and findings in the medical record. (Gonzalo Rose MD) Salena Campos Aug 12, 2017 11:22 Gonzalo Rose MD Aug 12, 2017 20:16
[2017-08-13] VITALS (9 sets, daily range): BP systolic 123–139; BP diastolic 64–75; PULSE 76–104; RESP 14–24; TEMP 97.4–98.7; O2SAT 93–99
[2017-08-13] MEDS: DEXAMETHASONE SOD PHOS 4 MG/ML VIAL IV PUSH SCH ×8 (00:17→17:06)
[2017-08-13] MEDS: RESP: ALBUTEROL 2.5 MG/IPRATROPIUM 0.5 MG NEB (SCH) INH ×8 (03:41→22:09)
[2017-08-13] MEDS: CHLORHEXIDINE GLUCONATE 2 % 1 PACK (2 CLOTHS) TOP SCH ×2 (03:59)
[2017-08-13] MEDS: levETIRAcetam 500 MG TAB PO SCH ×4 (08:36→21:06)
[2017-08-13] MEDS: LISINOPRIL 10 MG TAB PO SCH ×4 (08:36→21:06)
--- NOTE | 2017-08-13 10:47 | HHI.NSPN ---
History Chief Complaint: No complaints. Interval History 08/07: 81-year-old female who was brought to the emergency room by her family due to changes in mental status. She lives at home with her family. They state that when they came home this afternoon, their daughter noticed that the patient was confused and not speaking normally. She was also noted to have somewhat diffuse shaking or tremor in the upper greater than lower extremities. She had difficulty ambulating. She has no history of seizures. No history of cancer. The family states that the patient has not complained of any recent problems up until yesterday, including no headaches, dizziness, memory loss, gait difficulty. No recent fevers. 08/08: The patient is mildly lethargic when seen and responds to voice. Her family is visiting with her. She states that she wants to be left alone and is noncooperative. Her speech is slurred and at times incomprehensible. She does endorse a headache. 08/09: The patient is seen in rounds with Dr Fernando this morning. She is asleep but opens her eyes to voice. She denies any headache when asked. 08/10: The patient went down for an MRI brain prior to going to surgery for a left occipital and right frontal craniotomies for resection of neoplasms. Post- operatively the patient returned to the [facility] for further care and monitoring. When seen this morning the patient states she is doing better now. She does endorse a headache which improved after the head of the bed was raised some. She has no nausea. 08/11: doing better this am, nursing reports patient A&Ox3. moves ext x 4. no seizures 08/12: sitting up in chair, family in room reports patient doing very well. denies headaches, focal weakness, fevers or chills. 08/13: The patient is seen in rounds with Dr Fernando this morning. She states that she is doing good and had no complaints. She did have a headache yesterday. She reports she is walking without difficulty. The undersigned acts as a scribe for the remainder of this note. Exam Results 11/4/17 11/01/2208/12/17 08/12/17 08/13/17 08/13/17 06:00 18:00 06:00 18:00 06:00 18:00 Intake Total 894 ml 796 ml 2181 ml 376 ml 240 ml 240 ml Output Total 1800 ml 3250 ml 2100 ml 2000 ml 1150 ml 900 ml Balance -906 ml -2454 ml 81 ml -1624 ml -910 ml -660 ml Intake Oral 480 ml 480 ml 200 ml 240 ml 240 ml IV Total 894 ml 316 ml 1701 ml 176 ml Output Urine Total 1800 ml 3250 ml 2100 ml 2000 ml 1150 ml 900 ml # Bowel Movements 0 0 0 0 Vital Signs Date Time Temp Pulse Resp B/P (MAP) Pulse Ox O2 Delivery O2 Flow Rate FiO2 08/13/17 07:12 97 Nasal Cannula 2.00 08/13/17 07:00 Room Air 08/13/17 04:00 77 08/13/17 04:00 98.0 77 18 137/64 (88) 97 08/13/17 00:00 98.7 76 14 123/72 (89) 97 08/13/17 00:00 76 08/12/17 21:32 97 Nasal Cannula 2.00 08/12/17 20:00 116 08/12/17 20:00 97 Nasal Cannula 2.00 08/12/17 20:00 98.4 106 25 144/67 (92) 97 08/12/17 16:40 99 Nasal Cannula 2.00 08/12/17 16:00 98.4 77 20 154/71 (98) 98 08/12/17 16:00 78 08/12/17 12:00 98.6 70 15 142/65 (90) 97 08/12/17 12:00 71 08/12/17 08:00 86 08/12/17 08:00 98.6 85 25 146/68 (94) 97 08/12/17 07:00 96 Nasal Cannula 2.00 08/12/17 04:00 78 08/12/17 04:00 98.7 78 20 143/67 (92) 97 08/12/17 00:00 98.4 79 16 154/75 (101) 95 Arterial Line 08/12/17 00:00 79 08/11/17 21:28 96 Nasal Cannula 2.00 08/11/17 20:00 98.5 94 21 156/76 (102) 94 08/11/17 20:00 Nasal Cannula 2.00 08/11/17 16:00 98.2 84 24 143/77 (99) 100 08/11/17 16:00 84 08/11/17 12:00 98.7 83 24 131/52 (78) 100 08/11/17 12:00 83 08/11/17 08:50 100 Nasal Cannula 3.00 08/11/17 08:00 98.8 74 17 145/57 (86) 97 08/11/17 08:00 74 08/11/17 07:00 98 Nasal Cannula 2.00 08/11/17 06:00 80 08/11/17 04:54 95 Nasal Cannula 3.00 08/11/17 04:00 98.9 82 16 152/68 (96) 98 08/11/17 04:00 82 08/11/17 02:00 84 08/11/17 00:00 89 08/11/17 00:00 98.9 89 18 136/60 (85) 98 08/10/17 22:00 83 08/10/17 20:38 95 Nasal Cannula 3.00 08/10/17 20:00 108 08/10/17 20:00 98.6 108 21 142/62 (88) 96 08/10/17 19:00 96 Nasal Cannula 3.00 08/10/17 18:00 114 08/10/17 16:00 98 08/10/17 16:00 98.2 98 20 148/57 (87) 98 08/10/17 14:00 115 08/10/17 12:00 98.5 94 26 140/56 (84) 98 08/10/17 12:00 80 Physical Examination GENERAL: Awake & alert, sitting up in chair. Affect normal. No apparent distress. SKIN: Right forehead craniotomy incision dry & intact w/steri-strips. Left occipital craniotomy incision w/intact dressing w/shadowing of indeterminate ages. MUSCULOSKELETAL: BURNS spontaneously w/o difficulty. NEUROLOGICAL: AAOx3. Speech clear. Moves all extremities purposefully. Lab, Micro, Other Results Laboratory Tests Test 08/11/17 04:40 White Blood Count 8.9 TH/MM3 Red Blood Count 3.30 MIL/MM3 Hemoglobin 10.5 GM/DL Hematocrit 29.4 % Mean Corpuscular Volume 89.1 FL Mean Corpuscular Hemoglobin 31.7 PG Mean Corpuscular Hemoglobin Concent 35.6 % Red Cell Distribution Width 14.1 % Platelet Count 147 TH/MM3 Mean Platelet Volume 8.0 FL Blood Urea Nitrogen 11 MG/DL Creatinine 0.47 MG/DL Random Glucose 146 MG/DL Calcium Level 8.0 MG/DL Sodium Level 140 MEQ/L Potassium Level 3.5 MEQ/L Chloride Level 106 MEQ/L Carbon Dioxide Level 28.6 MEQ/L Anion Gap 5 MEQ/L Estimat Glomerular Filtration Rate 128 ML/MIN Medical Decision Making Impression and Plan The Impression & Plan are carried forward from the note of except for updating the POD #, deletion of the authors daily impression and as Added, Deleted, Modified or New Order. Impression: 1. The patient presents with a right frontal and left occipital brain lesion, probable hemorrhagic component. These are most consistent with metastatic brain lesions. 2. New onset seizure activity related to brain lesions. POD #4 () s/p : 1. Left occipital craniotomy, resection neoplasm. 2. Use of intraoperative frameless stereotactic navigation for planning and resection of left occipital neoplasm 3. Right frontal craniotomy for resection neoplasm Postoperative Diagnosis: (1) Brain mass 1. 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 (Modified) Primary management per Head Of Commission Department/Hospitalist. Frequent neuro checks. Stat CT brain for any worsening in neuro status. Continue phenytoin. Ulcer prophylaxis. Continue dexamethasone for edema surrounding the lesions. Appreciate Oncology's assistance and input. From NSGY's perspective the patient may transfer to a regular med/surg floor. ( Added) Anticipate that the patient will be ready for discharge to [facility] tomorrow. (Added) Bonifacio Harrell Aug 13, 2017 10:47
--- NOTE | 2017-08-13 15:52 | HHI.PR ---
Subjective Remarks No issues reported by nursing staff Awaiting a bed close to the nurses station so she can be moved out of [facility] without any complaints Objective Vitals Vital Signs Date Time Temp Pulse Resp B/P (MAP) Pulse Ox O2 Delivery O2 Flow Rate FiO2 08/13/17 12:00 97.4 90 20 130/66 (87) 94 08/13/17 12:00 90 08/13/17 08:00 98.5 78 24 139/75 (96) 96 08/13/17 08:00 78 08/13/17 07:12 97 Nasal Cannula 2.00 08/13/17 07:00 Room Air 08/13/17 04:00 77 08/13/17 04:00 98.0 77 18 137/64 (88) 97 08/13/17 00:00 98.7 76 14 123/72 (89) 97 08/13/17 00:00 76 08/12/17 21:32 97 Nasal Cannula 2.00 08/12/17 20:00 116 08/12/17 20:00 97 Nasal Cannula 2.00 08/12/17 20:00 98.4 106 25 144/67 (92) 97 08/12/17 16:40 99 Nasal Cannula 2.00 08/12/17 16:00 98.4 77 20 154/71 (98) 98 08/12/17 16:00 78 Result Diagram: 08/11/17 0440 08/11/17 0440 Imaging Last Impressions Head CT 08/10/17 0600 Signed Impressions: Service Date/Time: Thursday, August 10, 2017 04:51 - CONCLUSION: Intra-axial masses of the right frontal and left parietal lobes have been resected. Mild hemorrhage and pneumocephaly in the resection bed and also a small left parietal subdural hematoma. No midline shift. Kodi Gómez MD Brain MRI 08/09/17 0000 Signed Impressions: Service Date/Time: August 10:31 - CONCLUSION: Intra- axial masses of the right frontal and left parieto-occipital lobes likely metastatic disease. Subacute and chronic blood products and edema are present around each lesion but without measurable midline shift. Kodi Gómez MD Chest X-Ray 08/07/17 1723 Signed Impressions: Service Date/Time: Monday, August 07, 2017 17:56 - CONCLUSION: No acute disease. Ap Bashir MD Chest CT 08/07/17 0000 Signed Impressions: Service Date/Time: Monday, August 07, 2017 19:53 - CONCLUSION: 1. No evidence of primary tumor or metastatic disease. 2. Small low-attenuation lesion in the right lobe of the thyroid gland which is nonspecific but likely represents a small hyperplastic. 3. Hepatic steatosis. 4. Small hiatal hernia. Ap Bashir MD Abdomen/Pelvis CT 08/07/17 0000 Signed Impressions: Service Date/Time: Monday, August 07, 2017 19:53 - CONCLUSION: 1. No evidence of primary tumor or metastatic disease. 2. Hepatic steatosis. 3. Small hiatal hernia. Ap Bashir MD Objective Remarks General: NAD, Alert and oriented to place and self Chest: CTA Cardiac: Regular Abd: +BS, soft ND/NT Ext: No edema A/P Problem List: (1) Brain mass ICD Codes: G93.9 - Disorder of brain, unspecified Status: Acute Plan: - Pt is a 81 y/o female who was brought to the emergency room by her family due to changes in mental status. - Head CT (08/07) --> There are 2 hyperdense supratentorial masses, right frontal and left occipital, highly suspicious for metastatic disease - Pt had workup to look for possible primary malignancy - Chest CT (08/07) --> No evidence of primary tumor or metastatic disease. Small low-attenuation lesion in the right lobe of the thyroid gland which is nonspecific but likely represents a small hyperplastic. Hepatic steatosis. Small hiatal hernia - CT Abd/pelvis (08/07) --> No evidence of primary tumor or metastatic disease. Hepatic steatosis. Small hiatal hernia. - Pt underwent Left occipital craniotomy, resection neoplasm and right frontal craniotomy for resection neoplasm on 08/09/[address] Fernando - Repeat Head CT (08/10) --> Intra-axial masses of the right frontal and left parietal lobes have been resected. Mild hemorrhage and pneumocephaly in the resection bed and also a small left parietal subdural hematoma. No midline shift. - Cont. Decadron 6mg IV Q6H - Lisinopril 10mg Q12H was added on 08/11 for better BP control. - PRN Clonidine and Vasotec - Await pathology of lesions. - Oncology following. - PT/OOB. - Transfer out of ICU - Pt planned for discharge to [facility] at the time of discharge per CM notes - DVT prophylaxis (2) Seizure ICD Codes: R56.9 - Unspecified convulsions Status: Acute Plan: - New onset seizure activity related to brain lesions. - Keppra 500mg Q12H (3) HTN (hypertension) ICD Codes: I10 - Essential (primary) hypertension Status: Acute Plan: - See above. Jocelynn Dalal Aug 13, 2017 15:52
[2017-08-14 00:01] VITALS: BP 126/58; PULSE 85; RESP 18; TEMP 99.2; O2SAT 92
[2017-08-14] MEDS: DEXAMETHASONE SOD PHOS 4 MG/ML VIAL IV PUSH SCH ×8 (00:25→17:49)
[2017-08-14 00:28] VITALS: BP 133/65; PULSE 83; RESP 18; TEMP 98.2; O2SAT 95
[2017-08-14] MEDS: ACETAMINOPHEN 325 MG TAB PO PRN ×4 (01:58→03:27)
[2017-08-14] MEDS: CHLORHEXIDINE GLUCONATE 2 % 1 PACK (2 CLOTHS) TOP SCH ×2 (03:06)
[2017-08-14 03:29] VITALS: BP 161/85; PULSE 87; RESP 20; TEMP 98; O2SAT 99
[2017-08-14] MEDS: RESP: ALBUTEROL 2.5 MG/IPRATROPIUM 0.5 MG NEB (SCH) INH ×6 (04:07→16:17)
[2017-08-14 08:00] VITALS: BP 125/75; PULSE 87; RESP 24; TEMP 97.2; O2SAT 96
[2017-08-14] MEDS: LISINOPRIL 10 MG TAB PO SCH ×2 (08:05)
[2017-08-14] MEDS: levETIRAcetam 500 MG TAB PO SCH ×2 (08:05)
--- NOTE | 2017-08-14 08:55 | HHI.NSPN ---
History Chief Complaint: No complaints. Interval History 08/07: 81-year-old female who was brought to the emergency room by her family due to changes in mental status. She lives at home with her family. They state that when they came home this afternoon, their daughter noticed that the patient was confused and not speaking normally. She was also noted to have somewhat diffuse shaking or tremor in the upper greater than lower extremities. She had difficulty ambulating. She has no history of seizures. No history of cancer. The family states that the patient has not complained of any recent problems up until yesterday, including no headaches, dizziness, memory loss, gait difficulty. No recent fevers. 08/08: The patient is mildly lethargic when seen and responds to voice. Her family is visiting with her. She states that she wants to be left alone and is noncooperative. Her speech is slurred and at times incomprehensible. She does endorse a headache. 08/09: The patient is seen in rounds with Dr Fernando this morning. She is asleep but opens her eyes to voice. She denies any headache when asked. 08/10: The patient went down for an MRI brain prior to going to surgery for a left occipital and right frontal craniotomies for resection of neoplasms. Post- operatively the patient returned to the [facility] for further care and monitoring. When seen this morning the patient states she is doing better now. She does endorse a headache which improved after the head of the bed was raised some. She has no nausea. 08/11: doing better this am, nursing reports patient A&Ox3. moves ext x 4. no seizures 08/12: sitting up in chair, family in room reports patient doing very well. denies headaches, focal weakness, fevers or chills. 08/13: The patient is seen in rounds with Dr Fernando this morning. She states that she is doing good and had no complaints. She did have a headache yesterday. She reports she is walking without difficulty. 08/14: When seen this morning the patient is sitting up in the chair. She denies any complaints. When asked if she had any headache or nausea she stated "Not right now." She is visiting with family. System Review Comments ROS is negative except as noted in the Interval History. Exam Results 08/12/17 08/12/17 08/13/17 08/13/17 08/14/17 08/14/17 06:00 18:00 06:00 18:00 06:00 18:00 Intake Total 2181 ml 376 ml 240 ml 840 ml Output Total 2100 ml 2000 ml 1150 ml 3000 ml Balance 81 ml -1624 ml -910 ml -2160 ml Intake Oral 480 ml 200 ml 240 ml 840 ml IV Total 1701 ml 176 ml Output Urine Total 2100 ml 2000 ml 1150 ml 3000 ml # Bowel Movements 0 0 Vital Signs Date Time Temp Pulse Resp B/P (MAP) Pulse Ox O2 Delivery O2 Flow Rate FiO2 08/14/17 03:29 98.0 87 20 161/85 (110) 99 08/14/17 00:28 98.2 83 18 133/65 (87) 95 08/13/17 22:10 95 21 08/13/17 21:02 98.1 99 18 123/65 (84) 99 08/13/17 20:00 85 08/13/17 19:00 95 Room Air 08/13/17 16:00 97 08/13/17 16:00 98.6 104 20 131/67 (88) 93 08/13/17 12:00 97.4 90 20 130/66 (87) 94 08/13/17 12:00 90 08/13/17 08:00 98.5 78 24 139/75 (96) 96 08/13/17 08:00 78 08/13/17 07:12 97 Nasal Cannula 2.00 08/13/17 07:00 Room Air 08/13/17 04:00 77 08/13/17 04:00 98.0 77 18 137/64 (88) 97 08/13/17 00:00 98.7 76 14 123/72 (89) 97 08/13/17 00:00 76 08/12/17 21:32 97 Nasal Cannula 2.00 08/12/17 20:00 116 08/12/17 20:00 97 Nasal Cannula 2.00 08/12/17 20:00 98.4 106 25 144/67 (92) 97 08/12/17 16:40 99 Nasal Cannula 2.00 08/12/17 16:00 98.4 77 20 154/71 (98) 98 08/12/17 16:00 78 08/12/17 12:00 98.6 70 15 142/65 (90) 97 08/12/17 12:00 71 08/12/17 08:00 86 08/12/17 08:00 98.6 85 25 146/68 (94) 97 08/12/17 07:00 96 Nasal Cannula 2.00 08/12/17 04:00 78 08/12/17 04:00 98.7 78 20 143/67 (92) 97 08/12/17 00:00 98.4 79 16 154/75 (101) 95 Arterial Line 08/12/17 00:00 79 08/11/17 21:28 96 Nasal Cannula 2.00 08/11/17 20:00 98.5 94 21 156/76 (102) 94 08/11/17 20:00 Nasal Cannula 2.00 08/11/17 16:00 98.2 84 24 143/77 (99) 100 08/11/17 16:00 84 08/11/17 12:00 98.7 83 24 131/52 (78) 100 08/11/17 12:00 83 08/11/17 08:50 100 Nasal Cannula 3.00 Physical Examination GENERAL: Awake & alert, sitting up in chair. Affect normal. No apparent distress. SKIN: Right forehead craniotomy incision dry & intact w/steri-strips. Left occipital craniotomy incision w/intact dressing w/shadowing of indeterminate ages, incision well-approximated w/alfa. No evident drainage, erythema or streaking noted from either incision. HEENT: Craniotomy incisions to right forehead & left occipital NTTP. PERRLA 3 mm brisk, EOMI. MMM & pink, tongue midline to protrusion. MUSCULOSKELETAL: BURNS spontaneously w/o difficulty. NEUROLOGICAL: Awake & alert, oriented to person & place, some confusion with time. Unable to state year or month. She did know it was close to September but not able to come up with August although she knew is the next major holiday and that Michelle was President. Speech clear & mostly appropriate. Expressive and receptive aphasia evident. Follows simple commands. She had trouble following some commands even though it was explained or demonstrated. CN II-XII appear grossly intact. Sensation to light touch intact to all extremities. Motor strength 4+ to 5/5 to all major flexion & extension muscle groups. Medical Decision Making Impression and Plan Impression: 1. The patient presents with a right frontal and left occipital brain lesion, probable hemorrhagic component. These are most consistent with metastatic brain lesions. 2. New onset seizure activity related to brain lesions. Patient doing well although w/some confusion still as well as expressive & receptive aphasia. POD #5 () s/p : 1. Left occipital craniotomy, resection neoplasm. 2. Use of intraoperative frameless stereotactic navigation for planning and resection of left occipital neoplasm 3. Right frontal craniotomy for resection neoplasm Postoperative Diagnosis: (1) Brain mass 1. 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 Primary management per Concession Supervisor/Hospitalist. Frequent neuro checks. Stat CT brain for any worsening in neuro status. Continue phenytoin. Ulcer prophylaxis. Continue dexamethasone for edema surrounding the lesions. Appreciate Oncology's assistance and input. From NSGY's perspective the patient may transfer to a regular med/surg floor. Patient is ready for discharge to [facility] from NSGY's perspective. Change occipital incision dressing. OT whitney & arnie. Bonifacio Harrell Aug 14, 2017 08:55
[2017-08-14] MEDS ORDERED: LEVE500 PO ×2 (09:25)
[2017-08-14] MEDS ORDERED: LISI10TA3 PO ×2 (09:25)
[2017-08-14 12:00] VITALS: BP 121/56; PULSE 108; RESP 16; TEMP 97.7; O2SAT 99
--- NOTE | 2017-08-14 15:48 | HHI.DS ---
Discharge Summary Admission Date Aug 07, 2017 at 17:54 Discharge Date: Aug 14, 2017 Admitting Diagnosis brain tumor. Seizure (1) Brain mass ICD Codes: G93.9 - Disorder of brain, unspecified Status: Acute (2) Seizure ICD Codes: R56.9 - Unspecified convulsions Status: Acute (3) HTN (hypertension) ICD Codes: I10 - Essential (primary) hypertension Status: Acute CBC/BMP: 08/11/17 0440 08/11/17 0440 PE at Discharge General: NAD, Alert and oriented to place and self Chest: CTA Cardiac: Regular Abd: +BS, soft ND/NT Ext: No edema Hospital Course (1) Brain mass ICD Codes: G93.9 - Disorder of brain, unspecified Status: Acute Plan: - Pt is a 81 y/o female who was brought to the emergency room by her family due to changes in mental status. - Head CT (08/07) --> There are 2 hyperdense supratentorial masses, right frontal and left occipital, highly suspicious for metastatic disease - Pt had workup to look for possible primary malignancy - Chest CT (08/07) --> No evidence of primary tumor or metastatic disease. Small low-attenuation lesion in the right lobe of the thyroid gland which is nonspecific but likely represents a small hyperplastic. Hepatic steatosis. Small hiatal hernia - CT Abd/pelvis (08/07) --> No evidence of primary tumor or metastatic disease. Hepatic steatosis. Small hiatal hernia. - Pt underwent Left occipital craniotomy, resection neoplasm and right frontal craniotomy for resection neoplasm on 08/09/[address] Fernando - Repeat Head CT (08/10) --> Intra-axial masses of the right frontal and left parietal lobes have been resected. Mild hemorrhage and pneumocephaly in the resection bed and also a small left parietal subdural hematoma. No midline shift. - Cont. Decadron 6mg IV Q6H - Lisinopril 10mg Q12H was added on 08/11 for better BP control. - PRN Clonidine and Vasotec - Await pathology of lesions. - Oncology following. - PT/OOB. - Transfer out of ICU - Pt planned for discharge to [facility] at the time of discharge per CM notes - DVT prophylaxis (2) Seizure ICD Codes: R56.9 - Unspecified convulsions Status: Acute Plan: - New onset seizure activity related to brain lesions. - Keppra 500mg Q12H (3) HTN (hypertension) ICD Codes: I10 - Essential (primary) hypertension Status: Acute Plan: - See above. Amari Manjarrez DO Aug 14, 2017 15:48
[2017-08-14] MEDS ORDERED: DEXA2TAB PO ×2 (15:49)
[2017-08-14 16:00] VITALS: BP 136/61; PULSE 85; RESP 17; TEMP 97.6; O2SAT 96
== END 2017-08-14 18:13 | DRG 25 ==
LOC: NEPE 17:10 → NEDA 17:54 → N03B 20:18
PROVIDERS: ADMIT Internal Medicine Critical Care Medicine; ATTEND Internal Medicine Critical Care Medicine
PROC: 2W30XYZ Immobilization of Head using Other Device (ICD-10-PCS; 2017-08-09)
PROC: 00B00ZZ Excision of Brain, Open Approach (ICD-10-PCS; principal; 2017-08-09 11:33)
DX: C79.31 Secondary malignant neoplasm of brain (principal); I61.9 Nontraumatic intracerebral hemorrhage, unspecified; G93.6 Cerebral edema; R47.01 Aphasia; R56.9 Unspecified convulsions; I10 Essential (primary) hypertension; K21.9 Gastro-esophageal reflux disease without esophagitis; R41.82 Altered mental status, unspecified; C80.1 Malignant (primary) neoplasm, unspecified
CPT/HCPCS: 31500; 36600; 70450; 70553; 71010; 71260; 74177; 80048; 80053; 82805; 83735; 84100; 84443; 85025; 85027; 85610; 85730; 86850; 86900; 86901; 87641; 88307; 88331; 88341; 88342; 93005; 94002; 94150; 94640; 94664; 95819; J1170; A9579; J0171; J0360; J0461; J0690; J1100; J1580; J1630; J1953; J2060; J2270; J3480; J7030; J7050; Q2009; Q9967

== ENCOUNTER → 2017-10-30 | Day surgery (SDC) | payer MEDICARE ==
[~2017-10-30] VITALS: Ht 154.9 cm; Wt 71.0 kg
[~2017-10-30] MED LIST: ACETAMINOPHEN 1000 MG/100 ML 100 ML IV SCH; ALOE1CAP PO; BUPIVACAINE/EPINEPHRINE 0.5% 50 ML VIAL ONE; CALC600T4 PO; CHLORHEXIDINE GLUCONATE 2 % 1 PACK (2 CLOTHS) TOPICAL PRN; DEXA2TAB PO; GELA600C2 PO; HEPARIN SODIUM - IV 10,000 UNITS/10 ML VIAL ONE; LACTATED RINGER'S 1000 ML IV PRN; LEVE500 PO; LISI10TA3 PO; METOPROLOL TARTRATE 25 MG TAB PO PRN; MULTTAB67 PO; PHENYLEPH/NS 1000 MCG/10 ML SYR IV ONE; POVIDONE IODINE 5% (ANTISEPSIS KIT) 4 APPLICATIONS EACH NARE PRN; PROPOFOL 200 MG/20 ML AMP IV ONE; SODIUM BICARBONATE 8.4% INJ 0 ML ONE; SODIUM CHLORID 0.9% 500 ML IV PRN; SODIUM CHLORIDE 0.9% 20 ML VIAL ONE; ceFAZolin 2 GM PREMIX 50 ML IV SCH; ePHEDrine/NS 25 MG/5 ML SYRINGE IV ONE
[2017-10-30 10:15] VITALS: BP 102/61; PULSE 76; RESP 18; TEMP 97.6; O2SAT 100
--- NOTE | 2017-10-30 11:07 | RADRPT ---
EXAM DATE/TIME: 10/30/2017 09:24 [facility] COMPARISON: No previous studies available for comparison. INDICATIONS : Infusaport placement. FLUORO TIME: 2.54 minutes IMAGE COUNT: 1 MEDICAL HISTORY : Gastroesophageal reflux disease. Melanoma SURGICAL HISTORY : Appendectomy. Craniotomy. ENCOUNTER: Initial ACUITY: 1 day PAIN SCORE: Non-responsive. LOCATION: Left upper chest FINDINGS: Single fluoroscopic image centered about the mid chest region demonstrates a left subclavian Infuse-a -Port with tip in the SVC. CONCLUSION: 1. Left subclavian Dbvziy-x-Nety tip in the SVC. Tom Mg MD on October 30, 2017 at 11:04 Board Certified Radiologist. This report was verified electronically.
--- NOTE | 2017-10-30 21:53 | MP ---
cc: [facility]NAL[facility] DATE OF SURGERY 10/30/2017 PREOPERATIVE DIAGNOSIS Metastatic melanoma. POSTOPERATIVE DIAGNOSIS Metastatic melanoma. PROCEDURE Left subclavian Fefmva-D-Mals. SURGEON Uma Canales MD ANESTHESIA Local with MAC. PROCEDURE IN DETAIL The patient was brought to the operating room and after satisfactory sedation by Anesthesia, the left chest was prepped and draped in the usual sterile fashion. 0.5% Marcaine with epinephrine was used to infiltrate the skin for local anesthesia. A large bore needle was used to cannulate the left subclavian vein without problem. A guidewire was inserted into the superior vena cava, with placement confirmed on fluoroscopy. A skin incision was then made medial to the guidewire and a subcutaneous pocket fashioned for the Doaoux-Z-Vrgm. The port was placed within the pocket and the catheter cut to the appropriate length. A dilator and introducer were placed over the guidewire and the catheter then inserted into the superior vena cava, with placement again confirmed on fluoroscopy. The port was affixed to the pectoralis fascia and the pectoralis fascia with a 3-0 Vicryl suture. It was then aspirated easily and flushed with heparinized saline. The subcutaneous tissue and skin were closed with interrupted 4-0 PDS subcuticular stitches. Steri-Strips were applied. The patient was then awakened and taken from the operating room, in satisfactory condition, having tolerated procedure without a problem. Estimated blood loss was less than 10 mL. The instrument, sponge and needle counts were reported as being correct x2 at the end of the procedure. MD GABINO Arellano/ /9:53 AM /9:45 PM
== END | disposition home or self-care (01) ==
LOC: HSDC 06:41
PROVIDERS: ATTEND Surgery
DX: C79.31 Secondary malignant neoplasm of brain (principal); K21.9 Gastro-esophageal reflux disease without esophagitis; I10 Essential (primary) hypertension
CPT/HCPCS: 00532; 36561; C1788; J0131; J0690; J1644; J2370; J7120

== ENCOUNTER 2018-01-02 10:46 | Emergency (ER) | payer MEDICARE, MEDICAID, OTHER ==
[~2018-01-02 10:46] MED LIST changes: -ACETAMINOPHEN 1000 MG/100 ML 100 ML IV SCH; -BUPIVACAINE/EPINEPHRINE 0.5% 50 ML VIAL ONE; -CHLORHEXIDINE GLUCONATE 2 % 1 PACK (2 CLOTHS) TOPICAL PRN; -DEXA2TAB PO; -HEPARIN SODIUM - IV 10,000 UNITS/10 ML VIAL ONE; -LACTATED RINGER'S 1000 ML IV PRN; -METOPROLOL TARTRATE 25 MG TAB PO PRN; -PHENYLEPH/NS 1000 MCG/10 ML SYR IV ONE; -POVIDONE IODINE 5% (ANTISEPSIS KIT) 4 APPLICATIONS EACH NARE PRN; -PROPOFOL 200 MG/20 ML AMP IV ONE; -SODIUM BICARBONATE 8.4% INJ 0 ML ONE; -SODIUM CHLORID 0.9% 500 ML IV PRN; -SODIUM CHLORIDE 0.9% 20 ML VIAL ONE; -ceFAZolin 2 GM PREMIX 50 ML IV SCH; -ePHEDrine/NS 25 MG/5 ML SYRINGE IV ONE
[2018-01-02 11:16] VITALS: BP 149/85; PULSE 93; RESP 16; TEMP 98.2; O2SAT 97
--- NOTE | 2018-01-02 11:58 | RADRPT ---
EXAM DATE/TIME: 01/02/2018 11:38 [facility] COMPARISON: MRI BRAIN W & W/O CONTRAST, August 09, 2017, 10:31. INDICATIONS : Patient fell, hit back of head RADIATION DOSE: 56.35 CTDIvol (mGy) MEDICAL HISTORY : Metastatic, brain. Gastroesophageal reflux disease. SURGICAL HISTORY : Craniotomy. Appendectomy. ENCOUNTER: Initial ACUITY: 1 day PAIN SCALE: 2/10 LOCATION: occipital TECHNIQUE: Multiple contiguous axial images were obtained of the head. Using automated exposure control and adj ustment of the mA and/or kV according to patient size, radiation dose was kept as low as reasonably a chievable to obtain optimal diagnostic quality images. DICOM format image data is available electro nically for review and comparison. FINDINGS: Hypodensities are present in the right frontal region and the left parieto-occipital region at sites of known brain masses. A right supraorbital dick hole is noted and there has been previous left parie to-occipital craniotomy. A new mass is seen in the right cerebellar hemisphere. There is no evidence of acute injury. Specifically no evidence of intracranial hemorrhage or abnormal extra-axial fluid ac cumulation. The ventricles are stable with note of cavum septum pellucida. CONCLUSION: No acute injury. New presumed metastatic brain lesion in the right cerebellar hemisphere Kodi Munguia MD on January 02, 2018 at 11:50 Board Certified Radiologist. This report was verified electronically.
--- NOTE | 2018-01-02 12:25 | RADRPT ---
EXAM DATE/TIME: 01/02/2018 12:06 [facility] COMPARISON: No previous studies available for comparison. INDICATIONS : Fell pain with abrasion. MEDICAL HISTORY : Melanoma SURGICAL HISTORY : None. ENCOUNTER: Initial ACUITY: 1 day PAIN SCORE: 7/10 LOCATION: Left elbow. FINDINGS: Multiple view examination of the left elbow demonstrates no soft tissue swelling, joint effusion, or fracture. Tiny olecranon spur is noted. The osseous structures are in normal alignment. Bony minera lization is normal. CONCLUSION: No acute fracture or dislocation. Tiny olecranon spur. Reza Leger MD on January 02, 2018 at 12:23 Board Certified Radiologist. This report was verified electronically.
--- NOTE | 2018-01-02 12:34 | PD ---
HPI Chief Complaint: Fall Time Seen by Provider: 12:15 Travel History International Travel<30 days: No Contact w/Intl Traveler<30days: No Traveled to known affect area: No History of Present Illness HPI 82-year-old female presents to the emergency room for evaluation of trip and fall just prior to arrival. 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 She was coming to [place] to perform blood work. States she lifted her leg to go over the step and lost her balance and fell backwards. She landed on her left elbow and struck the back of her head against the concrete. Patient reports mild pain in the head and the elbow but denies chest pain, abdominal pain, neck pain, back pain, hip pain, or extremity pain. She denies loss of consciousness, significant headache, nausea, vomiting, or dizziness. She is not on blood thinners. Unknown last tetanus. PFSH Past Medical History Diminished Hearing: No GERD: Yes : 3 Para: 3 Miscarriage: 0 : 0 Past Surgical History Appendectomy: Yes Social History Alcohol Use: Yes Tobacco Use: No Substance Use: No Allergies-Medications (Allergen,Severity, Reaction): Coded Allergies: No Known Allergies (Unverified , 01/02/18) Reported Meds & Prescriptions Reported Meds & Active Scripts Active Keppra (Levetiracetam) 500 Mg Tab 500 Mg PO Q12HR Reported Dexamethasone 2 Mg Tab 2 Mg PO BID Multiple Vitamin 1 Tab 1 Tab PO DAILY Review of Systems Except as stated in HPI: all other systems reviewed are Neg Physical Exam Narrative GENERAL: Well-nourished, well-developed female no acute distress. Afebrile. Ambulatory. SKIN: Focused skin assessment warm/dry. Large laceration to the posterior scalp. Superficial skin tear to the left olecranon. HEAD: Normocephalic. EYES: No scleral icterus. No injection or drainage. NECK: Supple, trachea midline. No JVD or lymphadenopathy. CARDIOVASCULAR: Regular rate and rhythm without murmurs, gallops, or rubs. RESPIRATORY: Breath sounds equal bilaterally. No accessory muscle use. NEUROLOGICAL: Awake and alert. Cranial nerves II through XII intact. Motor and sensory grossly within normal limits. Five out of 5 muscle strength in all muscle groups. Normal speech. MSK: Full range of motion of the left elbow. 2+ radial pulse. Radial, ulnar, median nerves intact. No significant tender to palpation of the elbow. Data Data Last Documented VS Vital Signs Date Time Temp Pulse Resp B/P (MAP) Pulse Ox O2 Delivery O2 Flow Rate FiO2 01/02/18 11:16 98.2 93 16 149/85 (106) 97 Orders Orders Elbow, Complete (4 Vws) (01/02/18 ) Ct Brain W/O Iv Contrast(Rout) (01/02/18 ) Wound Care (01/02/18 12:34) Lidocaine Pf 1% Inj (Xylocaine-Mpf 1% In (01/02/18 12:45) Tetanus/Diphtheria Tox Adult (Tetanus/Di (01/02/18 13:00) Ed Discharge Order (01/02/18 13:17) MDM Medical Decision Making Medical Screen Exam Complete: Yes Emergency Medical Condition: Yes Medical Record Reviewed: Yes Differential Diagnosis Contusion, laceration, head injury, fall Narrative Course 82-year-old female presents to the emergency room 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 Patient lifted her leg to step up a curb and lost her balance, falling backwards. She struck her head on the concrete but denies loss of consciousness. Patient reports mild pain around the wound and the back of her head but denies any significant headache, nausea, vomiting, neck pain, back pain, hip pain. She denies any other complaints at this time. Patient is well-appearing, interacting appropriately, smiling. No focal neurological deficits. There is a large laceration to her posterior scalp that was thoroughly cleansed and then repaired, see procedure note for details. Patient also has a small skin tear in her elbow. She has full range motion of the left upper extremity and it is neurovascularly intact. X-ray of the elbow is negative. CT of the brain shows no acute abnormality but new metastatic lesion which patient was made aware of. It is in the cerebellar hemisphere which likely explains why patient lost her balance when lifting her leg. She has follow-up appointments with oncologist and an MRI scheduled on 01/22. Patient was updated on tetanus. She is stable for outpatient follow-up. Told to return for worsening symptoms. She understands and agrees to plan. Procedures Procedure Narrative LACERATION LOCATION: Occipital scalp LENGTH: 3 cm NUMBER OF STITCHES/SADE: 4 REPAIR: The area of the laceration was prepped with Betadine and sterilely draped. The laceration was infiltrated with 1% lidocaine. The wound was copiously irrigated and explored without evidence of foreign body, tendon injury or neurovascular injury. The wound was closed using staple gun. This was a single layer repair. A sterile dressing was applied. The patient was advised to keep the dressing clean and dry. Patient tolerated the procedure well. Diagnosis Primary Impression: Occipital scalp laceration Qualified Codes: S01.01XA - Laceration without foreign body of scalp, initial encounter Additional Impression: Lesion of cerebellum Referrals: Primary Care Physician Additional Instructions: Rest and drink plenty of fluids. Keep wound clean and dry. Apply triple antibiotic ointment daily. Return in 7 days to have sutures removed. Follow-up with a primary care physician. Return to the emergency room for worsening symptoms. Disposition: 01 DISCHARGE HOME Condition: Stable Jacinta Cazares Jan 02, 2018 12:34
[2018-01-02] MEDS ORDERED: DEXA2TAB PO (12:43)
[2018-01-02] MEDS ORDERED: LIDOCAINE HCL 1% PF 30 ML VIAL INFIL ONE (12:45)
[2018-01-02] MEDS ORDERED: TETANUS/DIPHTHERIA TOXOID ADULT 0.5 ML VIAL IM ONE (13:00)
== END 2018-01-02 13:41 | disposition home or self-care (01) ==
LOC: NEPK 10:46
DX: S01.01XA Laceration without foreign body of scalp, initial encounter (principal); G93.89 Other specified disorders of brain; K21.9 Gastro-esophageal reflux disease without esophagitis; C79.31 Secondary malignant neoplasm of brain; C80.1 Malignant (primary) neoplasm, unspecified; W01.0XXA Fall on same level from slipping, tripping and stumbling without subsequent striking against object, initial encounter; Z23 Encounter for immunization
CPT/HCPCS: 12002; 70450; 73080; 90471; 90714; 96372

== ENCOUNTER 2018-01-11 15:10 | Emergency (ER) | payer MEDICARE, MEDICAID ==
[~2018-01-11] VITALS: Ht 154.9 cm; Wt 71.4 kg
[~2018-01-11 15:10] MED LIST changes: -ALOE1CAP PO; -CALC600T4 PO; +DEXA2TAB PO; -GELA600C2 PO; -LISI10TA3 PO
[2018-01-11 15:45] VITALS: BP 133/86; PULSE 84; RESP 18; TEMP 97.6; O2SAT 98
--- NOTE | 2018-01-11 16:42 | PD ---
HPI Chief Complaint: Wound/Suture/Staple Re-Check Time Seen by Provider: 16:13 Travel History International Travel<30 days: No Contact w/Intl Traveler<30days: No Traveled to known affect area: No History of Present Illness HPI 82-year-old woman for staple re removal. Alfa placed in the head 10 days ago. History Past Medical History Medical History: Denies Significant Hx : 3 Para: 3 Social History Alcohol Use: Yes Tobacco Use: No Allergies-Medications (Allergen,Severity, Reaction): Coded Allergies: No Known Allergies (Unverified , 01/11/18) Reported Meds & Prescriptions Reported Meds & Active Scripts Active Keppra (Levetiracetam) 500 Mg Tab 500 Mg PO Q12HR Reported Dexamethasone 2 Mg Tab 2 Mg PO BID Multiple Vitamin 1 Tab 1 Tab PO DAILY Review of Systems Cardiovascular: No: Palpitations Physical Exam Narrative Scalp: 5 alfa, well-healed. Data Data Last Documented VS Vital Signs Date Time Temp Pulse Resp B/P (MAP) Pulse Ox O2 Delivery O2 Flow Rate FiO2 01/11/18 15:45 97.6 84 18 133/86 (102) 98 Orders Orders Ed Discharge Order (01/11/18 16:42) MDM Medical Decision Making Medical Screen Exam Complete: Yes Emergency Medical Condition: Yes Differential Diagnosis Staple removal Narrative Course 10-year-old woman here for staple removal. Skin looks good. No infection. Removed without issue. Procedures Procedure Narrative 5 alfa removed easily from the scalp. Patient tolerated well. Diagnosis Primary Impression: Removal of staple Additional Instructions: Follow-up with her primary doctor in 2-4 days if needed. Med/Other Pt SpecificInfo: No Change to Meds Disposition: 01 DISCHARGE HOME Condition: Stable Thom Hernandez MD Jan 11, 2018 16:42
== END 2018-01-11 16:52 | disposition home or self-care (01) ==
LOC: NEPD 15:10
DX: Z48.02 Encounter for removal of sutures (principal); Z79.899 Other long term (current) drug therapy
CPT/HCPCS: 99281

== ENCOUNTER 2018-02-20 14:04 | Inpatient (IN) | payer MEDICARE, MEDICAID ==
[2018-02-20 14:39] VITALS: BP 157/73; PULSE 108; RESP 17; TEMP 98.7; O2SAT 90
[2018-02-20] MEDS ORDERED: levETIRAcetam INJ 100 ML IV ONE (14:45)
[2018-02-20] MEDS ORDERED: LORazepam 2 MG/ML VIAL IV PUSH ONE (14:45)
[2018-02-20 14:51] LABS: AUTOMATED NEUTROPHIL # 4.3 TH/MM3 (1.8-7.7); BASOPHIL # 0.1 TH/MM3 (0-0.2); BASOPHIL % 0.8 % (0.0-2.0); EOSINOPHIL # 0.1 TH/MM3 (0-0.4); EOSINOPHIL % 0.8 % (0.0-4.0); HEMATOCRIT 30.7 % (35.0-46.0); LYMPH % 24.4 % (9.0-44.0); LYMPHOCYTE # 1.7 TH/MM3 (1.0-4.8); MEAN CELL VOLUME 90.5 FL (80.0-100.0); MEAN CORPUSCULAR HEMOGLOBIN 32.4 PG (27.0-34.0); MEAN CORPUSCULAR HGB CONC 35.8 % (32.0-36.0); MEAN PLATELET VOLUME 6.4 FL (7.0-11.0); MONO % 10.9 % (0.0-8.0); MONOCYTE # 0.7 TH/MM3 (0-0.9); NEUT % 63.1 % (16.0-70.0); PLATELET COUNT 297 TH/MM3 (150-450); RED BLOOD COUNT 3.39 MIL/MM3 (4.00-5.30); RED CELL DISTRIBUTION WIDTH 17.5 % (11.6-17.2); WHITE BLOOD COUNT 6.8 TH/MM3 (4.0-11.0)
[2018-02-20 15:01] VITALS: BP 162/77; PULSE 104; RESP 21; O2SAT 98
[2018-02-20 15:10] LABS: ALBUMIN 3.4 GM/DL (3.4-5.0); ALT (GPT) 52 U/L (10-53); AST (GOT) 40 U/L (15-37); BICARBONATE 22.3 MEQ/L (21.0-32.0); BLOOD UREA NITROGEN 9 MG/DL (7-18); CHLORIDE 106 MEQ/L (98-107); CREATININE 0.77 MG/DL (0.50-1.00); GLOMERULAR FILTRATION RATE 72 ML/MIN (>89); GLUCOSE,RANDOM 115 MG/DL (74-106); SODIUM (NA) 141 MEQ/L (136-145)
[2018-02-20 15:14] LABS: ALKALINE PHOSPHATASE 62 U/L (45-117); TOTAL BILIRUBIN ADULT 1.9 MG/DL (0.2-1.0); TOTAL PROTEIN 6.7 GM/DL (6.4-8.2); TROPONIN I LESS THAN 0.02 NG/ML (0.02-0.05)
--- NOTE | 2018-02-20 15:25 | RADRPT ---
EXAM DATE/TIME: 02/20/2018 15:03 [facility] COMPARISON: CHEST SINGLE AP, August 07, 2017, 17:56. INDICATIONS : Short of breath. MEDICAL HISTORY : Metastatic, brain. Gastroesophageal reflux disease. SURGICAL HISTORY : Craniotomy. Appendectomy. ENCOUNTER: Initial ACUITY: 1 day PAIN SCORE: 0/10 LOCATION: Bilateral chest FINDINGS: [id number] in good position. Minimal parenchymal changes left base. Right lung clear. The heart and pulmonary vascularity are normal. CONCLUSION: Minimal parenchymal changes left base without infiltrate or failure. Gamal Manuel MD FACR on February 20, 2018 at 15:22 Board Certified Radiologist. This report was verified electronically.
--- NOTE | 2018-02-20 16:03 | RADRPT ---
EXAM DATE/TIME: 02/20/2018 15:31 [facility] COMPARISON: CT BRAIN W/O CONTRAST, January 02, 2018, 11:38. INDICATIONS : Altered mental status. RADIATION DOSE: 36.16 CTDIvol (mGy) MEDICAL HISTORY : Gastroesophageal reflux disease. Metastatic, brain.Melanoma. SURGICAL HISTORY : Craniotomy. Appendectomy. ENCOUNTER: Initial ACUITY: 1 day PAIN SCALE: 0/10 LOCATION: cranial TECHNIQUE: Multiple contiguous axial images were obtained of the head. Using automated exposure control and adjustment of the mA and/or kV according to patient size, radiation dose was kept as low as reasonably achievable to obtain optimal diagnostic quality images. DICOM format image data is av ailable electronically for review and comparison. FINDINGS: Patient has known melanoma. There is enlarged new 1.4 similar mass in the high left orbital reg ion. Second smaller masses are seen in the left sylvian region. 1.2 cm mass is seen in the left mid temporal region. There is evidence for previous surgery in the right orbitofrontal region. ` The posterior fossa is unremarkable. CONCLUSION: Progressing apparent metastatic disease in the brain. Minimal increase in mass effec t. Lesions are spontaneously dense and possibly hemorrhagic. CT scan can underestimate metastatic melanoma. Gamal Manuel MD FACR on February 20, 2018 at 15:52 Board Certified Radiologist. This report was verified electronically.
[2018-02-20 17:05] VITALS: BP 157/76; PULSE 103; RESP 20; O2SAT 97
[2018-02-20] MEDS ORDERED: DEXAMETHASONE SOD PHOS 20 MG/5 ML VIAL IV PUSH ONE (18:45)
[2018-02-20] MEDS ORDERED: PEMB1INJ IV (18:55)
--- NOTE | 2018-02-20 19:22 | PD ---
HPI Chief Complaint: Altered Mental Status Time Seen by Provider: 14:26 Travel History International Travel<30 days: No Contact w/Intl Traveler<30days: No Traveled to known affect area: No History of Present Illness HPI 82-year-old woman with a history of metastatic melanoma who presents emerged from with abrupt confusion. She is brought in by a friend who does not know a lot of her medical history and history is early is initially a little bit difficult to obtain. It sounds like she has had abrupt confusion that started this morning. Patient unable to provide a lot of additional meaningful history. Review of records she has known metastatic melanoma. Dr. Chang has been weaning off of her steroids, and her Keppra. She maintains on chemotherapy. She has had some mixed response. No recent illness or injury. Otherwise been doing well. Today she has confusion, generalized weakness. History Past Medical History Narrative Medical From records: Metastatic melanoma Hypertension Seizure : 3 Para: 3 Social History Alcohol Use: No Tobacco Use: No Allergies-Medications (Allergen,Severity, Reaction): Coded Allergies: No Known Allergies (Unverified , 01/11/18) Reported Meds & Prescriptions Reported Meds & Active Scripts Active Reported Keytruda Inj (Pembrolizumab) 100 Mg/4 Ml (25 Mg/Ml) Inj 200 Mg IV Multiple Vitamin 1 Tab 1 Tab PO DAILY Review of Systems Except as stated in HPI: all other systems reviewed are Neg Physical Exam Narrative GENERAL: 82-year-old woman, bizarrely confused, left-sided gaze preference, no other focal abnormalities. SKIN: Focused skin assessment warm/dry. HEAD: Atraumatic. Normocephalic. EYES: Left-sided gaze preference. Pupils equal and round. No scleral icterus. No injection or drainage. ENT: No nasal bleeding or discharge. Mucous membranes pink and moist. NECK: Trachea midline. No JVD. CARDIOVASCULAR: Regular rate and rhythm. Heart rates older rapid. No murmur appreciated. RESPIRATORY: No accessory muscle use. Respiratory rates older rapid. Clear to auscultation. Breath sounds equal bilaterally. GASTROINTESTINAL: Abdomen soft, non-tender, nondistended. Hepatic and splenic margins not palpable. MUSCULOSKELETAL: No obvious deformities. No clubbing. No cyanosis. No edema. NEUROLOGICAL: Awake and alert. Overtly confused with aphasia and difficulty speaking. Left-sided gaze preference. No other obvious cranial nerve abnormalities. She does hold the right hand a little bit contracted, but again no obvious focal weakness. Speech is aphasic and very difficult to understand. PSYCHIATRIC: Appropriate mood and affect; insight and judgment normal. Data Data Last Documented VS Vital Signs Date Time Temp Pulse Resp B/P (MAP) Pulse Ox O2 Delivery O2 Flow Rate FiO2 02/20/18 17:05 103 20 157/76 (103) 97 Nasal Cannula 02/20/18 15:01 2.00 02/20/18 14:39 98.7 Orders Orders Sepsis Workup Initiated (02/20/18 ) Electrocardiogram (02/20/18 14:32) Complete Blood Count With Diff (02/20/18 14:32) Comprehensive Metabolic Panel (02/20/18 14:32) Lactic Acid Sepsis Protocol (02/20/18 14:32) Magnesium (Mg) (02/20/18 14:32) Troponin I (02/20/18 14:32) Urinalysis - C+S If Indicated (02/20/18 14:32) Blood Culture (02/20/18 14:32) Chest, Single Ap (02/20/18 14:32) Arterial Blood Gas (Abg) (02/20/18 14:32) Blood Glucose (02/20/18 14:32) Ecg Monitoring (02/20/18 14:32) Iv Access Insert/Monitor (02/20/18 14:32) Oximetry (02/20/18 14:32) Oxygen Administration (02/20/18 14:32) Ct Brain W/O Iv Contrast(Rout) (02/20/18 14:32) Levetiracetam Inj (Keppra Inj) (02/20/18 14:45) Lorazepam Inj (Ativan Inj) (02/20/18 14:45) D-Dimer (02/20/18 14:32) Dexamethasone Inj (Decadron Inj) (02/20/18 18:45) Mri Brain W&W/O Contrast (02/20/18 ) Admit Order (Ed Use Only) (02/20/18 ) Labs Laboratory Tests Test 02/20/18 14:40 02/20/18 14:43 White Blood Count 6.8 TH/MM3 Red Blood Count 3.39 MIL/MM3 Hemoglobin 11.0 GM/DL Hematocrit 30.7 % Mean Corpuscular Volume 90.5 FL Mean Corpuscular Hemoglobin 32.4 PG Mean Corpuscular Hemoglobin Concent 35.8 % Red Cell Distribution Width 17.5 % Platelet Count 297 TH/MM3 Mean Platelet Volume 6.4 FL Neutrophils (%) (Auto) 63.1 % Lymphocytes (%) (Auto) 24.4 % Monocytes (%) (Auto) 10.9 % Eosinophils (%) (Auto) 0.8 % Basophils (%) (Auto) 0.8 % Neutrophils # (Auto) 4.3 TH/MM3 Lymphocytes # (Auto) 1.7 TH/MM3 Monocytes # (Auto) 0.7 TH/MM3 Eosinophils # (Auto) 0.1 TH/MM3 Basophils # (Auto) 0.1 TH/MM3 CBC Comment DIFF FINAL Differential Comment D-Dimer Quantitative (PE/DVT) 1.64 MG/L FEU Blood Urea Nitrogen 9 MG/DL Creatinine 0.77 MG/DL Random Glucose 115 MG/DL Total Protein 6.7 GM/DL Albumin 3.4 GM/DL Calcium Level 9.0 MG/DL Magnesium Level 2.0 MG/DL Alkaline Phosphatase 62 U/L Aspartate Amino Transf (AST/SGOT) 40 U/L Alanine Aminotransferase (ALT/SGPT) 52 U/L Total Bilirubin 1.9 MG/DL Sodium Level 141 MEQ/L Potassium Level 3.2 MEQ/L Chloride Level 106 MEQ/L Carbon Dioxide Level 22.3 MEQ/L Anion Gap 13 MEQ/L Estimat Glomerular Filtration Rate 72 ML/MIN Lactic Acid Level 1.2 mmol/L Troponin I LESS THAN 0.02 NG/ML Blood Gas Puncture Site LT RADIAL Blood Gas Patient Temperature 98.6 Blood Gas HCO3 22 mmol/L Blood Gas Base Excess -1.2 mmol/L Blood Gas Oxygen Saturation 85 % Arterial Blood pH 7.50 Arterial Blood Partial Pressure CO2 28 mmHg Arterial Blood Partial Pressure O2 50 mmHG Arterial Blood Oxygen Content 11.8 Vol % Arterial Blood Carboxyhemoglobin 2.4 % Arterial Blood Methemoglobin 0.3 % Blood Gas Hemoglobin 9.8 G/DL Oxygen Delivery Device [facility] Medical Decision Making Medical Screen Exam Complete: Yes Emergency Medical Condition: Yes Interpretation(s) My review of EKG: Sinus tachycardia rate 111, normal axis, normal intervals, some minimal ST changes but no definite evidence of acute ischemia. LABS: CBC remarkable for mild anemia. CMP is unremarkable. Total bili 1.9 Troponin negative Lactate 1.2 D-dimer 1.6 for new Arterial blood gas with some hypoxia, and increased pH and a low PCO2. CT head: Progressing apparent metastatic disease in the brain. Minimal increase in mass-effect. Lesions are spontaneously dense and possibly hemorrhagic. Chest x-ray: Minimal parenchymal changes. Differential Diagnosis Seizure, intracranial bleed, worsening intracranial metastatic disease, infection, other Narrative Course Medical decision making The [id number] woman presents emerged department with what appears to be a fairly of abrupt onset confusion. She does not look toxic. CT scan shows increase in size of the lesions with possible bleed. Spoke with Dr. Whyte. This may be some response to treatment and weaning of the steroids. I had some concern she may have status partial seizures. She was given benzodiazepines and Keppra with some good effect. Also give her a dose of Decadron. I spoke with Dr. Pan, will admit the patient to the ICU for monitoring. Will get an MRI. Initially heart was older rapid she is a bit tachypneic. History was also very limited initially. There is no other evidence of point toward PE. She does have some malignancy. I think her symptoms about six-point with neurologic findings given the confusion. I do not think she has any further workup for PE at this point. Diagnosis Primary Impression: Confusion Admitting Information Admitting Physician Requests: Admit Thom Hernandez MD February 20, 2018 19:22
[2018-02-20] MEDS ORDERED: GADODIAMIDE PF 287 MG/ML 5 ML VIAL (for RAD MRI) IVCONTRAST ONE (19:36)
--- NOTE | 2018-02-20 19:51 | HHI.HP ---
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 She is brought in by a friend who does not know a lot of her medical history and history is early is initially a little bit difficult to obtain. It sounds like she has had abrupt confusion that started this morning. Patient unable to provide a lot of additional meaningful history. Further discussion with patient's [id number] and son who were at bedside during my exam revealed that patient has been confused more over the last 2 days. For example yesterday she attempted to pour water into a glass from the end of the broomstick. She also was unable to correctly identify 1 of her grandsons with whom she is quite familiar yesterday. Today she has been more nonverbal than usual and did complain of a headache with increased fatigue as well. No fevers or chills noted. No increased cough. No complaint of urinary symptoms. Dr. Chang has been weaning off of her steroids of late due to edema in her legs. Also reportedly weaning off her Keppra. She maintains on chemotherapy every 3 weeks. She has had some mixed response and apparently had new metastatic lesions noted earlier this year. No recent illness or injury. Otherwise been doing well. She reportedly has a living will and desires to be full code initially but no prolonged heroic measures are desired. Review of Systems ROS Limitations: Altered Mental Status, Poor Historian Constitutional: COMPLAINS OF: Fatigue, Dizziness Respiratory: DENIES: Apneas, Cough, Snoring, Wheezing, Hemoptysis, Sputum production, Shortness of breath Cardiovascular: COMPLAINS OF: Lower Extremity Edema Neurologic: COMPLAINS OF: Abnormal gait, Headache, Speech Problems, Poor Balance Psychiatric: COMPLAINS OF: Confusion Past Family Social History Past Medical History Brain metastases Fall risk level 1 - sensorium and coordination int GERD (gastroesophageal reflux disease) Hypertension Metastatic melanoma (primary site not known) (BRAF mutation negative. 10/18/2017 : Recommended palliative first-line immunotherapy with Keytruda.) Previous Radiation Therapy-Yes ([place], [place] 2018) Seizure New brain lesions noted in 2018 Past Surgical History Appy in Craniotomy with tumor bx Reported Medications Keytruda Inj (Pembrolizumab) 100 Mg/4 Ml (25 Mg/Ml) Inj 200 Mg IV q 3 weeks. Recently weaned off Decadron due to LE edema Multiple Vitamin 1 Tab 1 Tab PO DAILY Previously on Keppra 500mg bid, but reportedly weaning. 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 She is mostly nonverbal but does occasionally answer a question with yes or no. Appears somewhat confused. SKIN: No rashes, ecchymoses or lesions. Cool and dry. HEAD: Atraumatic. Normocephalic. No temporal or scalp tenderness. EYES: Pupils equal round and reactive. Extraocular motions intact. No scleral icterus. No injection or drainage. ENT: Nose without bleeding, purulent drainage or septal hematoma. Airway patent. NECK: Trachea midline. No JVD or lymphadenopathy. Supple, nontender, no meningeal signs. CARDIOVASCULAR: Regular rate and rhythm without murmurs, gallops, or rubs. RESPIRATORY: Clear to auscultation. Breath sounds equal bilaterally. No wheezes , rales, or rhonchi. GASTROINTESTINAL: Abdomen soft, non-tender, nondistended. No hepato-splenomegaly , or palpable masses. No guarding. MUSCULOSKELETAL: Extremities without clubbing, cyanosis, or edema. No joint tenderness, effusion, or edema noted. No calf tenderness. NEUROLOGICAL: Awake and alert. She is able to move all extremities but does not move them reproducibly to command. Mostly nonverbal as noted. Laboratory Laboratory Tests Test 02/20/18 14:40 02/20/18 14:43 White Blood Count 6.8 Red Blood Count 3.39 Hemoglobin 11.0 Hematocrit 30.7 Mean Corpuscular Volume 90.5 Mean Corpuscular Hemoglobin 32.4 Mean Corpuscular Hemoglobin Concent 35.8 Red Cell Distribution Width 17.5 Platelet Count 297 Mean Platelet Volume 6.4 Neutrophils (%) (Auto) 63.1 Lymphocytes (%) (Auto) 24.4 Monocytes (%) (Auto) 10.9 Eosinophils (%) (Auto) 0.8 Basophils (%) (Auto) 0.8 Neutrophils # (Auto) 4.3 Lymphocytes # (Auto) 1.7 Monocytes # (Auto) 0.7 Eosinophils # (Auto) 0.1 Basophils # (Auto) 0.1 CBC Comment DIFF FINAL Differential Comment D-Dimer Quantitative (PE/DVT) 1.64 Blood Urea Nitrogen 9 Creatinine 0.77 Random Glucose 115 Total Protein 6.7 Albumin 3.4 Calcium Level 9.0 Magnesium Level 2.0 Alkaline Phosphatase 62 Aspartate Amino Transf (AST/SGOT) 40 Alanine Aminotransferase (ALT/SGPT) 52 Total Bilirubin 1.9 Sodium Level 141 Potassium Level 3.2 Chloride Level 106 Carbon Dioxide Level 22.3 Anion Gap 13 Estimat Glomerular Filtration Rate 72 Lactic Acid Level 1.2 Troponin I LESS THAN 0.02 Blood Gas Puncture Site LT RADIAL Blood Gas Patient Temperature 98.6 Blood Gas HCO3 22 Blood Gas Base Excess -1.2 Blood Gas Oxygen Saturation 85 Arterial Blood pH 7.50 Arterial Blood Partial Pressure CO2 28 Arterial Blood Partial Pressure O2 50 Arterial Blood Oxygen Content 11.8 Arterial Blood Carboxyhemoglobin 2.4 Arterial Blood Methemoglobin 0.3 Blood Gas Hemoglobin 9.8 Oxygen Delivery Device ROOM AIR Date/Time Source Procedure Growth Status 02/20/18 14:45 Blood Peripheral Aerobic Blood Culture Pending Received 02/20/18 14:45 Blood Peripheral Anaerobic Blood Culture Pending Received Result Diagram: 02/20/18 1440 02/20/18 1440 Imaging Last [address] 02/20/18 1432 Signed Impressions: Service Date/Time: Tuesday, February 20, 2018 15:31 - CONCLUSION: Progressing apparent metastatic disease in the brain. Minimal increase in mass effect. Lesions are spontaneously dense and possibly hemorrhagic. CT scan can underestimate metastatic melanoma. Gamal Manuel MD FACR Chest X-Ray 02/20/18 1432 Signed Impressions: Service Date/Time: Tuesday, February 20, 2018 15:03 - CONCLUSION: Minimal parenchymal changes left base without infiltrate or failure. Gamal Manuel MD FACR Caprini VTE Risk Assessment Caprini VTE Risk Assessment: Mod/High Risk (score >= 2) VTE Pharm Contraindication: Intracranial lesions Caprini Risk Assessment Model Point Value = 1 Point Value = 2 Point Value = 3 Point Value = 5 Age 41-60 Minor surgery BMI > 25 kg/m2 Swollen legs Varicose veins or History of unexplained or recurrent spontaneous Oral contraceptives or hormone replacement Sepsis (< 1 month) Serious lung disease, including pneumonia (< 1 month) Abnormal pulmonary function Acute myocardial infarction Congestive heart failure (< 1 month) History of inflammatory bowel disease Medical patient at bed rest Age 61-74 Arthroscopic surgery Major open surgery (> 45 min) Laparoscopic surgery (> 45 min) Malignancy Confined to bed (> 72 hours) Immobilizing plaster cast Central venous access Age >= 75 History of VTE Family history of VTE Factor V Leiden Prothrombin [id number] Lupus anticoagulant Anticardiolipin antibodies Elevated serum homocysteine Heparin-induced thrombocytopenia Other congenital or acquired thrombophilia Stroke (< 1 month) Elective arthroplasty Hip, pelvis, or leg fracture Acute spinal cord injury (< 1 month) Prophylaxis Regimen Total Risk Factor Score Risk Level Prophylaxis Regimen 0-1 Low Early ambulation 2 Moderate Order ONE of the following: *Sequential Compression Device (SCD) *Heparin 5000 units SQ BID 3-4 Higher Order ONE of the following medications: *Heparin 5000 units SQ TID *Enoxaparin/Lovenox 40 mg SQ daily (WT < 150 kg, CrCl > 30 mL/min) *Enoxaparin/Lovenox 30 mg SQ daily (WT < 150 kg, CrCl > 10-29 mL/min) *Enoxaparin/Lovenox 30 mg SQ BID (WT < 150 kg, CrCl > 30 mL/min) AND/OR *Sequential Compression Device (SCD) 5 or more Highest Order ONE of the following medications: *Heparin 5000 units SQ TID (Preferred with Epidurals) *Enoxaparin/Lovenox 40 mg SQ daily (WT < 150 kg, CrCl > 30 mL/min) *Enoxaparin/Lovenox 30 mg SQ daily (WT < 150 kg, CrCl > 10-29 mL/min) *Enoxaparin/Lovenox 30 mg SQ BID (WT < 150 kg, CrCl > 30 mL/min) AND *Sequential Compression Device (SCD) Assessment and Plan Problem List: (1) Altered mental status ICD Codes: R41.82 - Altered mental status, unspecified Status: Acute Plan: Does not appear septic and vital signs relatively stable. Lactic acid is normal. White blood cell count normal. Altered mentation likely associated with metastatic cerebral process. Will initiate Decadron therapy. ER physician discussed case with on-call oncologist , Dr. Whyte per his report. We will admit to the intensive care unit overnight and then hopefully downgrade admission to regular med/surge bed depending on her status and progress. I have discussed end-of-life issues with the family specifically the daughter-in -law and son are who are at bedside. It is reported that patient wished to be full code but did not desire long-term heroic measures if no improvement occurred with aggressive therapy. MRI pending regarding closer evaluation for possible bleed (2) Malignant melanoma metastatic to brain ICD Codes: C79.31 - Secondary malignant neoplasm of brain Status: Chronic Plan: Decadron given. MRI ordered to evaluate for possible bleeding. Will avoid nonsteroidals. Oncology consult. (3) HTN (hypertension) ICD Codes: I10 - Essential (primary) hypertension Status: Acute Plan: We will monitor. We will provide as needed blood pressure medication with parameters Code Status Full Discussed Condition With Patient, her [id number], her son and ER provider Physician Certification 2 Midnight Certification Type: Admission for Inpatient Services Order for Inpatient Services The services are ordered in accordance with Medicare regulations or non- Medicare payer requirements, as applicable. In the case of services not specified as inpatient-only, they are appropriately provided as inpatient services in accordance with the 2-midnight benchmark. Estimated LOS (days): 3 days is the estimated time the patient will need to remain in the hospital, assuming treatment plan goals are met and no additional complications. Post-Hospital Plan: Not yet determined Problem Qualifiers (1) Altered mental status: Qualified Codes: R41.0 - Disorientation, unspecified (2) HTN (hypertension): Qualified Codes: I10 - Essential (primary) hypertension Josh Pan MD PhD February 20, 2018 19:51
[2018-02-20] MEDS ORDERED: NS + KCL 40 MEQ INJ 1,000 ML IV SCH (20:00)
--- NOTE | 2018-02-20 20:32 | RADRPT ---
EXAM DATE/TIME: 02/20/2018 19:26 [facility] COMPARISON: CT BRAIN W/O CONTRAST, August 07, 2017, 17:26. MRI BRAIN W & W/O CONTRAST, August 09, 2017, 10:3 1. INDICATIONS : Mass. CONTRAST: 14 cc Omniscan (gadodiamide) IV MEDICAL HISTORY : Metastatic melanoma. SURGICAL HISTORY : Craniotomy. Appendectomy. ENCOUNTER: Subsequent ACUITY: 4-6 months PAIN SCORE: 0/10 LOCATION: head. TECHNIQUE: Multiplanar, multisequence MRI of the brain was performed both prior to and following the administrat ion of paramagnetic contrast. FINDINGS: CEREBRUM: There are multiple masses seen. Many these clearly enhance. Many of them demonstrate low signal on th e SWI images likely from prior hemorrhage or melanin. The largest mass is seen in the left medial pos terior frontal lobe measuring up to 1.5 cm. There is posterior change from prior bilateral craniotomi es. The ventricles are normal for age. There is a patent cavum septum pellucida. No evidence of midl ine shift, hemorrhage. There is a small 0.9 cm signal abnormality in the posterior medial right roshan etal lobe on the diffusion weighted images. This corresponds to an enhancing lesion. This likely repr esents T2 shine through phenomenon. No extraaxial fluid collections are seen. The pituitary gland an d suprasellar cistern are normal in configuration. WHITE MATTER: Several of the lesions demonstrate surrounding edema or glios cyst. Significant mass effect is not cl early seen. POSTERIOR FOSSA: There are bilateral cerebellar lesions. The 4th ventricle is midline. The cerebellopontine angle is unremarkable. The cerebellar tonsils are normal in position. CONCLUSION: 1. Numerous masses. The masses appear more numerous on the current exam when compared to the prior ex am however the masses are clearly smaller with less mass effect. The masses demonstrate signal charac teristics consistent with the diagnosis of melanoma metastatic disease. 2. Small focal area of increased signal on the T2, diffusion-weighted images and enhancement images l ikely related to a metastatic lesion with possible necrosis. 3. New cerebellar lesions. Kodi Colunga MD on February 20, 2018 at 20:15 Board Certified Radiologist. This report was verified electronically.
[2018-02-20] MEDS: DEXAMETHASONE SOD PHOS 4 MG/ML VIAL IV PUSH SCH (21:34)
[2018-02-20] MEDS: ENALAPRILAT 1.25 MG/ML VIAL IV PUSH PRN (21:36)
[2018-02-20 22:00] VITALS: BP 175/91; PULSE 102; RESP 18; TEMP 98.5; O2SAT 96
[2018-02-20 23:00] VITALS: BP 144/67; PULSE 93; RESP 22; O2SAT 98
[2018-02-21] VITALS (13 sets, daily range): BP systolic 144–165; BP diastolic 68–88; PULSE 72–114; RESP 10–21; TEMP 97.7–98.6; O2SAT 99–100
[2018-02-21] MEDS: DEXAMETHASONE SOD PHOS 4 MG/ML VIAL IV PUSH SCH ×3 (05:36→21:48)
[2018-02-21] MEDS: LORazepam 2 MG/ML VIAL IV PRN ×2 (05:36→22:49)
[2018-02-21 05:41] LABS: BICARBONATE 21.4 MEQ/L (21.0-32.0); CALCIUM 8.6 MG/DL (8.5-10.1); CREATININE 0.54 MG/DL (0.50-1.00)
[2018-02-21] MEDS: levETIRAcetam INJ 500 MG in SODIUM CHLORIDE 0.9% INJ 100 ML IV SCH (08:16)
--- NOTE | 2018-02-21 08:47 | HHI.PR ---
Subjective Remarks confused. cooperative Objective Vitals confused follows commands moves all 4 exts' heart reg lung cta abd s/nt ext no edema Vital Signs Date Time Temp Pulse Resp B/P (MAP) Pulse Ox O2 Delivery O2 Flow Rate FiO2 02/21/18 07:00 99 Nasal Cannula 2.00 02/21/18 04:00 72 02/21/18 03:00 81 10 149/88 (108) 99 02/21/18 02:00 85 02/21/18 00:00 92 02/20/18 23:00 93 22 144/67 (92) 98 02/20/18 22:00 98.5 102 18 175/91 (119) 96 02/20/18 22:00 102 02/20/18 21:14 02/20/18 17:05 103 20 157/76 (103) 97 Nasal Cannula 02/20/18 15:01 104 21 162/77 (105) 98 Nasal Cannula 2.00 02/20/18 15:01 99 Nasal Cannula 2.00 02/20/18 14:39 98.7 108 17 157/73 (101) 90 Result Diagram: 02/20/18 1440 02/21/18 0357 Imaging Last [address] 02/20/18 1432 Signed Impressions: Service Date/Time: Tuesday, February 20, 2018 15:31 - CONCLUSION: Progressing apparent metastatic disease in the brain. Minimal increase in mass effect. Lesions are spontaneously dense and possibly hemorrhagic. CT scan can underestimate metastatic melanoma. Gamal Manuel MD FACR Chest X-Ray 02/20/18 1432 Signed Impressions: Service Date/Time: Tuesday, February 20, 2018 15:03 - CONCLUSION: Minimal parenchymal changes left base without infiltrate or failure. Gamal Manuel MD FACR A/P Problem List: (1) Malignant melanoma metastatic to brain ICD Codes: C79.31 - Secondary malignant neoplasm of brain Status: Acute Plan: metastatic melanoma to brain. s/p left occipital/right frontal craniotomy/resection 08/24 pt had received radiation and immunotherapy. Pt presents with increased delirium and mri revealed more numerous metastatic deposits discussed with Dr Chang. We feel palliative care consult is appropriate and likely move her toward hospice care cont ivf with kcl swallow evaluation. (2) Altered mental status ICD Codes: R41.82 - Altered mental status, unspecified Status: Acute (3) HTN (hypertension) ICD Codes: I10 - Essential (primary) hypertension Status: Chronic Plan: \ Problem Qualifiers (1) Altered mental status: Qualified Codes: R41.0 - Disorientation, unspecified (2) HTN (hypertension): Qualified Codes: I10 - Essential (primary) hypertension Arthur Nguyễn MD February 21, 2018 08:46
[2018-02-21] MEDS: NS + KCL 40 MEQ INJ 1,000 ML IV SCH ×2 (08:52→21:50)
--- NOTE | 2018-02-21 10:18 | PD.CONS ---
Consult Service Palliative Care Consult Requested By PETER Gooden Primary Care Physician Radhames Chang MD Reason for Consultation A. To assist with evaluation and management of symptoms including: Confusion, agitation b. To assist medical decision maker(s) with: better understanding of current medical conditions; weighing benefits/burdens of medical treatment options; making medical treatment decisions. 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 Chang and has been receiving palliative immunotherapy with Keytruda, currently completed her sixth cycle and recent imaging showed a mixed response with resolution of previously seen pulmonary nodules and newly found mesenteric lymphadenopathy. She presented to [facility] 02/20 with abrupt onset confusion. She had seen Dr. Chang on 02/14/18 and was in process of weaning of steroids. There was concern for recurrent seizures and so she was preemptively given Decadron, benzodiazepines and Keppra in the ED. History given by son, Chinedu, with whom she lives, states that she had had increasing confusion over the prior 2 days, at one time attempting to pour water into a glass from the end of the broomstick and was unable to identify 1 of her grandsons. They had noticed decreased conversation, increased fatigue and complaints of a headache. She had a fall at home 01/02 with head trauma requiring 5 alfa, which were subsequently removed January 11, 2018. ED course: * Laboratory: WBC 6.8, hemoglobin 11.0, hematocrit 30.7, platelets 297, sodium 141, potassium 3.2, BUN 9, creatinine 0.77, normal transaminases, ABG pH 7.50, PCO2 28, PaO2 50, HCO3 22, base excess -1.2, saturation 85% on room air. * Radiology: Chest x-ray shows minimal parenchymal changes in the left base without infiltrate or failure. Head CT showed progressing, apparent metastatic disease in the brain. Minimal increase in mass-effect, or lesions spontaneously dense and possibly hemorrhagic. Of note CT scan can underestimate metastatic melanoma. At this evaluation, she is seen in room 13[facility] of [facility], restrained, confused. She required administration of 0.5 mg of Ativan this morning for agitation and combativeness and is somewhat lethargic this evaluation, however arousable. Her son denied any combativeness or agitation at home, but did report confusion and disorientation. Patient is unable to provide any meaningful history. When asked if she had children, she shook her head no, when in fact she lives with 1 of her 3 children. When asked if she lived locally she stated "I do not know". She appears in no acute distress at this time. . Function/Cognitive Trajectory Her son states that she has been having recurrent episodes of altered mental status or confusion at home and it is noted that she has been seen in the emergency department for 3 separate incidences of confusion or treatment for falls. Her son, Chinedu, states that she is noncompliant with her walker and other medical recommendations. She did suffer a fall 01/02 requiring 5 stitches to her head and has now begun not remembering some family members. . Review of Systems ROS Limitations: Clinical Condition, Altered Mental Status (Patient is nonverbal and unable to provide their own ROS. 10 part ROS taken as best as possible from medical record and available family.) Constitutional: COMPLAINS OF: Generalized weakness Endocrine: DENIES: Abnorml menstrual pattern, Heat/cold intolerance, Polydipsia , Polyuria, Polyphagia Eyes: DENIES: Blurred vision, Diplopia, Eye inflammation, Eye pain, Vision loss , Photosensitivity, Double Vision, Blind spots Ears, nose, mouth, throat: DENIES: Tinnitus, Hearing loss, Vertigo, Nasal discharge, Oral lesions, Throat pain, Hoarseness, Ear Pain, Running Nose, Epistaxis, Sinus Pain, Toothache, Odynophagia Respiratory: DENIES: Apneas, Cough, Snoring, Wheezing, Hemoptysis, Sputum production, Shortness of breath Cardiovascular: DENIES: Chest pain, Palpitations, Syncope, Dyspnea on Exertion , PND, Lower Extremity Edema, Orthopnea, Claudication Gastrointestinal: DENIES: Abdominal pain, Black stools, Bloody stools, Constipation, Diarrhea, Nausea, Vomiting, Difficulty Swallowing, Anorexia, Dyspepsia or heartburn, Excessive gas, Bloating, Vomiting blood Genitourinary: DENIES: Abnormal vaginal bleeding, Dysmenorrhea, Dyspareunia, Sexual dysfunction, Urinary frequency, Urinary incontinence, Urgency, Hematuria , Dysuria, Nocturia, Vaginal discharge, Hesitancy, Dribbling, Decreased stream Musculoskeletal: DENIES: Joint pain, Muscle aches, Stiffness, Joint Swelling, Back pain, Neck pain, Decreased range of motion Integumentary: DENIES: Abnormal pigmentation, Pruritus, Rash, Nail changes, Breast masses, Breast skin changes, Nipple discharge, Nodules, Tumors, Excessive dryness, Non-healing sores Hematologic/Lymphatics: DENIES: Bruising, Lymphadenopathy, Prolonged bleed w/ proced, History of transfusions Immunologic/Allergic: DENIES: Eczema, Urticaria Neurologic: COMPLAINS OF: Headache, Seizures, DENIES: Abnormal gait, Localized weakness, Paresthesias, Speech Problems, Tremor, Poor Balance, Change in smell or taste Psychiatric: COMPLAINS OF: Confusion Past Family Social History Coded Allergies: No Known Allergies (Unverified , 01/11/18) Past Medical History Metastatic melanoma (primary site not known) to the brain BRAF mutation negative on palliative Keytruda, status post radiation therapy 2017, 2018. Hypertension Seizure . Past Surgical History Craniotomy with tumor biopsy Appendectomy . Reported Medications . Reported Meds & Active Scripts Active Reported Keytruda Inj (Pembrolizumab) 100 Mg/4 Ml (25 Mg/Ml) Inj 200 Mg IV Multiple Vitamin 1 Tab 1 Tab PO DAILY . Current Medications Medications (Trade) Dose Ordered Sig/Courtney Route Start Time Stop Time Status Last Admin Levetriacetam 500 mg/Sodium Chloride 105 ml @ 420 mls/hr DAILY IV 02/21/18 09:00 02/21/18 08:16 (Decadron Inj) 4 mg Q8HR IV PUSH 02/20/18 22:00 02/21/18 05:36 (Vasotec Inj) 1.25 mg Q8H PRN IV PUSH 02/20/18 20:00 02/20/18 21:36 (Ativan Inj) 0.5 mg Q4H PRN IV 02/21/18 01:30 02/21/18 05:36 Potassium Chloride/Sodium Chloride 1,000 ml @ 75 mls/hr [id number] IV 02/21/18 09:00 02/21/18 08:52 . Family History Father of coronary artery disease, no other cancer history noted. Daughter had a benign tumor. Substance Use Tobacco: Lifelong non-smoker. Alcohol: Previously had heavy rank alcohol usage regularly, none in several years. Prescription med abuse: No history. Illicits: No history. . Psychosocial History Born and raised locally. She retired from [employer]. She is with 2 sons and 1 daughter. She lives with 1 of her sons, Chinedu, since her diagnosis of metastatic melanoma. . Spiritual/Cultural Factors Spiritism mitul. . Living Will: Completed, but not made available Health Care Surrogate: Completed, but not made available Durable Power of Railroad Mechanic: Completed, but not made available Date completed: Pending receipt of the documents from the son. . Health Care Surrogate(s): Chinedu Kathleen, states he has the surrogate paperwork and will email., Pending receipt. . Documented care wishes: Advanced directive paperwork with the sonChinedu, pending receipt. . Today's verbally stated goals: Patient is confused and unable to state. . Family/friends goals: Family is uncertain of goals at this time. A family meeting has been tentatively scheduled for 12 noon on 02/22 to discuss. . Ethical and Legal Issues None noted. . Physical Exam Vital Signs Date Time Temp Pulse Resp B/P (MAP) Pulse Ox O2 Delivery O2 Flow Rate FiO2 02/21/18 08:00 88 02/21/18 08:00 97.7 88 19 144/86 (105) 99 02/21/18 07:00 99 Nasal Cannula 2.00 02/21/18 04:00 72 02/21/18 03:00 81 10 149/88 (108) 99 02/21/18 02:00 85 02/21/18 00:00 92 02/20/18 23:00 93 22 144/67 (92) 98 02/20/18 22:00 98.5 102 18 175/91 (119) 96 02/20/18 22:00 102 02/20/18 21:14 02/20/18 17:05 103 20 157/76 (103) 97 Nasal Cannula 02/20/18 15:01 104 21 162/77 (105) 98 Nasal Cannula 2.00 02/20/18 15:01 99 Nasal Cannula 2.00 02/20/18 14:39 98.7 108 17 157/73 (101) 90 . . 02/21/18 02/22/18 19:00 07:00 Intake Total 500 ml Balance 500 ml Intake IV Total 500 ml Exam CONSTITUTIONAL/GENERAL: This is an adequately nourished patient, restrained in bed, in no apparent distress. TUBES/LINES/DRAINS: PIV, RAC SKIN: No jaundice, rashes, or lesions. Ecchymoses on upper extremities. No wounds seen anteriorly. Skin temperature appropriate. Not diaphoretic. HEAD: Atraumatic. Normocephalic. EYES: Pupils equal and round and sluggishly reactive. Extraocular motions intact. No scleral icterus. No injection or drainage. Fundi not examined. ENT: Hearing grossly normal. Nose without bleeding or purulent drainage. Throat without visible erythema, exudates, masses, or lesions. NECK: Trachea midline. Supple, nontender. No palpable thyroid enlargement or nodularity. CARDIOVASCULAR: Regular rate and rhythm without murmurs, gallops, or rubs. No JVD. Peripheral pulses symmetric. RESPIRATORY/CHEST: Symmetric, unlabored respirations. Clear to auscultation. Breath sounds equal bilaterally. No wheezes, rales, or rhonchi. GASTROINTESTINAL: Abdomen soft, non-tender, nondistended. No hepato-splenomegaly , or palpable masses. No guarding. Bowel sounds present. GENITOURINARY: Without palpable bladder distension. MUSCULOSKELETAL: Extremities without clubbing, cyanosis, or edema. No joint tenderness or effusion noted. No calf tenderness. No mottling or clubbing. LYMPHATICS: No palpable cervical or supraclavicular adenopathy. NEUROLOGICAL: Lethargic, arousable, confused, questionably oriented to self only. PSYCHIATRIC: Mild agitation. . Diagnostic Tests Laboratory Laboratory Tests Test 02/20/18 14:40 02/20/18 14:43 02/20/18 20:00 02/21/18 03:57 White Blood Count 6.8 TH/MM3 (4.0-11.0) Red Blood Count 3.39 MIL/MM3 (4.00-5.30) Hemoglobin 11.0 GM/DL (11.6-15.3) Hematocrit 30.7 % (35.0-46.0) Mean Corpuscular Volume 90.5 FL (80.0-100.0) Mean Corpuscular Hemoglobin 32.4 PG (27.0-34.0) Mean Corpuscular Hemoglobin Concent 35.8 % (32.0-36.0) Red Cell Distribution Width 17.5 % (11.6-17.2) Platelet Count 297 TH/MM3 (150-450) Mean Platelet Volume 6.4 FL (7.0-11.0) Neutrophils (%) (Auto) 63.1 % (16.0-70.0) Lymphocytes (%) (Auto) 24.4 % (9.0-44.0) Monocytes (%) (Auto) 10.9 % (0.0-8.0) Eosinophils (%) (Auto) 0.8 % (0.0-4.0) Basophils (%) (Auto) 0.8 % (0.0-2.0) Neutrophils # (Auto) 4.3 TH/MM3 (1.8-7.7) Lymphocytes # (Auto) 1.7 TH/MM3 (1.0-4.8) Monocytes # (Auto) 0.7 TH/MM3 (0-0.9) Eosinophils # (Auto) 0.1 TH/MM3 (0-0.4) Basophils # (Auto) 0.1 TH/MM3 (0-0.2) CBC Comment DIFF FINAL Differential Comment D-Dimer Quantitative (PE/DVT) 1.64 MG/L FEU (0.00-0.50) Blood Urea Nitrogen 9 MG/DL (7-18) 7 MG/DL (7-18) Creatinine 0.77 MG/DL (0.50-1.00) 0.54 MG/DL (0.50-1.00) Random Glucose 115 MG/DL (74-106) 160 MG/DL (74-106) Total Protein 6.7 GM/DL (6.4-8.2) Albumin 3.4 GM/DL (3.4-5.0) Calcium Level 9.0 MG/DL (8.5-10.1) 8.6 MG/DL (8.5-10.1) Magnesium Level 2.0 MG/DL (1.5-2.5) Alkaline Phosphatase 62 U/L (45-117) Aspartate Amino Transf (AST/SGOT) 40 U/L (15-37) Alanine Aminotransferase (ALT/SGPT) 52 U/L (10-53) Total Bilirubin 1.9 MG/DL (0.2-1.0) Sodium Level 141 MEQ/L (136-145) 140 MEQ/L (136-145) Potassium Level 3.2 MEQ/L (3.5-5.1) 3.2 MEQ/L (3.5-5.1) Chloride Level 106 MEQ/L (98-107) 106 MEQ/L (98-107) Carbon Dioxide Level 22.3 MEQ/L (21.0-32.0) 21.4 MEQ/L (21.0-32.0) Anion Gap 13 MEQ/L (5-15) 13 MEQ/L (5-15) Estimat Glomerular Filtration Rate 72 ML/MIN (>89) 109 ML/MIN (>89) Lactic Acid Level 1.2 mmol/L (0.4-2.0) Troponin I LESS THAN 0.02 NG/ML Blood Gas Puncture Site LT RADIAL Blood Gas Patient Temperature 98.6 Blood Gas HCO3 22 mmol/L (22-26) Blood Gas Base Excess -1.2 mmol/L (-2-2) Blood Gas Oxygen Saturation 85 % (90-100) Arterial Blood pH 7.50 (7.380-7.420) Arterial Blood Partial Pressure CO2 28 mmHg (38-42) Arterial Blood Partial Pressure O2 50 mmHG (61-120) Arterial Blood Oxygen Content 11.8 Vol % (12.0-20.0) Arterial Blood Carboxyhemoglobin 2.4 % (0-4) Arterial Blood Methemoglobin 0.3 % (0-2) Blood Gas Hemoglobin 9.8 G/DL (12.0-16.0) Oxygen Delivery Device ROOM AIR Nasal Screen MRSA (PCR) MRSA NOT DETECTED (NOT . Result Diagram: 02/20/18 1440 02/21/18 0357 Microbiology Microbiology Date/Time Source Procedure Growth Status 02/20/18 14:45 Blood Peripheral Aerobic Blood Culture Pending Received 02/20/18 14:45 Blood Peripheral Anaerobic Blood Culture Pending Received 02/20/18 14:40 Blood Peripheral Aerobic Blood Culture Pending Received 02/20/18 14:40 Blood Peripheral Anaerobic Blood Culture Pending Received Imaging Last Impressions Head CT 02/20/18 1432 Signed Impressions: Service Date/Time: Tuesday, February 20, 2018 15:31 - CONCLUSION: Progressing apparent metastatic disease in the brain. Minimal increase in mass effect. Lesions are spontaneously dense and possibly hemorrhagic. CT scan can underestimate metastatic melanoma. Gamal Manuel MD FACR Chest X-Ray 02/20/18 1432 Signed Impressions: Service Date/Time: Tuesday, February 20, 2018 15:03 - CONCLUSION: Minimal parenchymal changes left base without infiltrate or failure. Gamal Manuel MD FACR Brain MRI 02/20/18 0000 Signed Impressions: Service Date/Time: Tuesday, February 20, 2018 19:26 - CONCLUSION: 1. Numerous masses. The masses appear more numerous on the current exam when compared to the prior exam however the masses are clearly smaller with less mass effect. The masses demonstrate signal characteristics consistent with the diagnosis of melanoma metastatic disease. 2. Small focal area of increased signal on the T2 , diffusion-weighted images and enhancement images likely related to a metastatic lesion with possible necrosis. 3. New cerebellar lesions. Kodi Colunga MD Patient/Family Conference Present at Family Conference: Spoke with patient's son, Chinedu Crane, via telephone and updated as to mother' s current clinical confusion. Also discussed palliative care purpose and focus , patient's past social, psychosocial, medical and surgical history as well as recent cognitive decline. He relates that his mother had been doing fairly well up until the last few days when she became increasingly confused, stopped recognizing 1 of her grandsons and was trying to fill up a water glass out of broomstick. He states that this is an acute and sharp version from her baseline. We discussed her cancer treatment and the opinion of Dr. Chang that hospice or palliative care may be her best option given her decline and mixed results from 6 cycles of treatment. Family meeting has been tentatively scheduled for 02/22 at noon to discuss discharge plans once oncology has rendered their opinion. . Family Conference Location: Telephone Issues Discussed: * Palliative care role, purpose, approach * Additional medical, psychosocial, and spiritual history * Patients general health, functional status, and cognitive changes in the months leading up to the current hospitalization * Patient/family understanding of the current medical problems * Patient/family understanding of prognosis * Patients goals of care as best understood from advance directives and/or conversations and/or values * Current medical treatment options and benefits/burdens of those options * Likely scenarios comparing ongoing aggressive care with a transition to comfort measures only * Questions answered to the best of my ability * Palliative care contact information provided Assessment and Plan Disease Oriented Problem List: (1) Malignant melanoma metastatic to brain (2) HTN (hypertension) Symptom Scale: (1) Confusion (2) Agitation Pertinent Non-Medical Issues Psychosocial:Born and raised locally. She retired from [employer]. She is with 2 sons and 1 daughter. She lives with 1 of her sons, Chinedu, since her diagnosis of metastatic melanoma. Spiritual: Spiritism mitul. Legal: Pending copy of previously completed directive paperwork from home. Ethical issues impacting care: None noted. . Important Contacts Son: Chinedu Crane Son: Jorden Crane Daughter: Ivanna Quach . Prognosis Her prognosis is poor. She is 82 years old with metastatic melanoma of unknown primary to the brain, now with new lymphadenopathy seen on PET/CT. Per Dr. Chang's note, he is recommending palliative care/hospice, due to the mixed results seen on the PET scan with resolution of lung nodules and findings of new lymphadenopathy. In spite of immunotherapy and radiation, it appears that the disease is progressing and will likely end her life. Family is requesting further discussion to determine goals of care, scheduled for 02/22. . Code Status: Full Code Plan PLAN: Legal decision maker: At this time the patient is not capacitated for decision-making. Her son Chinedu states that he is been named the healthcare surrogate, however receipt of those papers is pending. Without the healthcare surrogate documentation, per [place] statutes, as patient is the majority of her adult children could serve as healthcare proxy if willing. Goals: Aggressive. CODE STATUS: FULL CODE SYMPTOMS: * Confusion: Likely due to the effects of the metastatic melanoma to her brain. This has been intermittent per her son but occurring more often. Family plans to keep her at home, once discharged. Familiar surroundings may be her best intervention for managing her quality of life if confusion improves. * Agitation: Multifactorial to include strange surroundings, metastatic brain cancer, steroid use. She has Ativan 0.5 mg every 4 hours as needed for agitation and is now requiring soft extremity restraints for safety. SUMMARY: This is an 82-year-old female with a history of melanoma, now metastatic to the brain with mesenteric lymphadenopathy. MRI of the brain done 02/20 shows more numerous masses on the current exam compared to prior with reduction in size and less mass-effect. Signal characteristics are consistent with diagnosis of melanoma metastatic disease, with new metastatic lesions. She has altered mental status and is now developing some combative characteristics. In spite of immunotherapy, it appears that the disease has progressed and Dr. Chang, her oncologist, is recommending palliative care/ hospice. Family is considering all options at this time pending family meeting 02/22. She would be hospice appropriate if goals were consistent. Palliative care will continue to follow the patient during hospital course as condition evolves, to assist patient/decision-maker with understanding of their medical conditions, weighing benefits/burdens of treatment options, for clarification of goals of treatment. Additionally will assist with any symptoms of palliative concern. . Thank you for the opportunity to participate in the care of Ms. Crane. Attestation To help prompt me to consider important information that might be impacting today's encounter and assessment, information from prior notes written by myself or my colleagues may have been "brought forward" into today's note. My signature on this note, however, is an attestation that I personally performed the exam, history, and/or decision-making noted today, and, unless otherwise indicated, the interactions with patient, family, and staff as well as the review of records all occurred today. I also attest that the listed assessment and stated plan reflect my best clinical judgment today based on the combination of historical information, prior notes, and today's exam/ interactions. When time spent is documented, it refers only to time spent today by the signer, or if indicated, combined time spent today by collaborating physician/nurse practitioner. . Yoanna Tanner February 21, 2018 10:18
--- NOTE | 2018-02-21 13:39 | PD.CONS ---
History of Present Illness Service Hematology/Oncology Consult Requested By [facility] service Reason for Consult Metastatic melanoma with multiple new intracranial metastatic lesions. Primary Care Physician Radhames Chang MD Diagnoses: History of Present Illness Chief Complaint: Increasing confusion. Difficulty speaking. Difficulty balancing and recurrent falls. History of presenting illness: Ms. Crane is a very pleasant 82-year-old female who was diagnosed with metastatic melanoma with multiple intracranial metastases initially in late July 2017. In early August 2017 she underwent craniotomy with resection of 2 intracranial metastatic deposits. Pathologic findings confirmed metastatic melanoma; B LOPEZ mutation status was negative. After receiving postoperative radiation to the tumor bed she was initiated on systemic therapy with palliative first-line Keytruda. The patient was noted on PET CT imaging to have mediastinal lymphadenopathy as well as intra-abdominal lymphadenopathy which was fairly low-volume disease but was definitely measurable. She received 4 cycles of Keytruda she underwent restaging imaging scans which indicated interval decrease in size of the previously noted lymphadenopathy, and recent MRI of the brain performed in mid January 2018 indicated good response to therapy without evidence of progression. The patient was seen by me last week it was advised continuation with palliative Keytruda. She at that time reported symptoms of fatigue and recurrent falls. For the past several days the patient has had expressive aphasia as noted by her family as well as confusion. Her [id number]-uxq called my office yesterday to report the symptoms and the patient was advised evaluation in the emergency department with imaging studies of the brain. MRI of the brain performed on 02/20/2018 indicated multiple new intracranial metastatic deposits. She has been admitted to the surgical ICU and is currently being monitored. The patient is already been evaluated by the palliative care service which is appropriate. Review of Systems Constitutional: COMPLAINS OF: Fatigue, Change in appetite (Decreased appetite) , DENIES: Diaphoretic episodes, Fever, Weight gain, Weight loss, Chills, Dizziness, Night Sweats Endocrine: DENIES: Abnorml menstrual pattern, Heat/cold intolerance, Polydipsia , Polyuria, Polyphagia Eyes: COMPLAINS OF: Double Vision, DENIES: Blurred vision, Diplopia, Eye inflammation, Eye pain, Vision loss, Photosensitivity Ears, nose, mouth, throat: COMPLAINS OF: Vertigo, DENIES: Tinnitus, Hearing loss, Nasal discharge, Oral lesions, Throat pain, Hoarseness, Ear Pain, Running Nose, Epistaxis, Sinus Pain, Toothache, Odynophagia Respiratory: DENIES: Apneas, Cough, Snoring, Wheezing, Hemoptysis, Sputum production, Shortness of breath Cardiovascular: COMPLAINS OF: Dyspnea on Exertion, DENIES: Chest pain, Palpitations, Syncope, PND, Lower Extremity Edema, Orthopnea, Claudication Gastrointestinal: DENIES: Abdominal pain, Black stools, Bloody stools, Constipation, Diarrhea, Nausea, Vomiting, Difficulty Swallowing, Anorexia Genitourinary: DENIES: Abnormal vaginal bleeding, Dysmenorrhea, Dyspareunia, Sexual dysfunction, Urinary frequency, Urinary incontinence, Urgency, Hematuria , Dysuria, Nocturia, Vaginal discharge Musculoskeletal: DENIES: Joint pain, Muscle aches, Stiffness, Joint Swelling, Back pain, Neck pain Integumentary: DENIES: Abnormal pigmentation, Pruritus, Rash, Nail changes, Breast masses, Breast skin changes, Nipple discharge Hematologic/lymphatic: DENIES: Bruising Immunologic/allergic: COMPLAINS OF: Eczema, DENIES: Urticaria Neurologic: COMPLAINS OF: Abnormal gait, Headache, Localized weakness, Speech Problems, Poor Balance, DENIES: Paresthesias, Seizures, Tremor Psychiatric: COMPLAINS OF: Confusion, Agitation, DENIES: Anxiety, Mood changes , Depression, Hallucinations, Suicidal Ideation, Homicidal Ideation, Delusions Except as stated in HPI: all other systems reviewed are Neg Past Family Social History Allergies: Coded Allergies: No Known Allergies (Unverified , 01/11/18) Past Medical History Metastatic melanoma Intracranial metastases Recurrent falls Hypertension Seizure disorder Past Surgical History Appendectomy Craniotomy with resection of brain metastases Reported Medications Outpatient medications: Keppra 500 mg p.o. twice daily Dexamethasone slow taper. Luz Lio 300 mg once daily Zoloft 50 mg at nighttime Active Ordered Medications Keppra 500 mg IV daily Normal saline 75 cc/h Dexamethasone 4 mg IV every 8 hours Lorazepam 0.5 mg IV every 4 hours needed for agitation Family History No known oncologic diagnoses in the family. Social History Patient lives at home with her son and [id number]. She is , she reports being a lifelong non-smoker, she denies history of alcohol abuse. Physical Exam Vital Signs Vital Signs Date Time Temp Pulse Resp B/P (MAP) Pulse Ox O2 Delivery O2 Flow Rate FiO2 02/21/18 12:00 83 02/21/18 12:00 97.9 83 19 151/80 (103) 100 02/21/18 10:00 80 02/21/18 08:00 88 02/21/18 08:00 97.7 88 19 144/86 (105) 99 02/21/18 07:00 99 Nasal Cannula 2.00 02/21/18 04:00 72 02/21/18 03:00 81 10 149/88 (108) 99 02/21/18 02:00 85 02/21/18 00:00 92 02/20/18 23:00 93 22 144/67 (92) 98 02/20/18 22:00 98.5 102 18 175/91 (119) 96 02/20/18 22:00 102 02/20/18 21:14 02/20/18 17:05 103 20 157/76 (103) 97 Nasal Cannula 02/20/18 15:01 104 21 162/77 (105) 98 Nasal Cannula 2.00 02/20/18 15:01 99 Nasal Cannula 2.00 02/20/18 14:39 98.7 108 17 157/73 (101) 90 Physical Exam GENERAL: Elderly lady, laying in bed, she is tearful, she is not acutely distressed but has significant expressive aphasia. SKIN: Erythema and dryness of the skin noted along the eyebrows and around her nose. HEAD: Atraumatic. Normocephalic. No temporal or scalp tenderness. EYES: Pupils equal round and reactive. Extraocular motions intact. No scleral icterus. No injection or drainage. ENT: Nose without bleeding, purulent drainage or septal hematoma. Throat without erythema, tonsillar hypertrophy or exudate. Uvula midline. Airway patent. NECK: Trachea midline. No JVD or lymphadenopathy. Supple, nontender, no meningeal signs. CARDIOVASCULAR: Regular rate and rhythm without murmurs, gallops, or rubs. RESPIRATORY: Poor inspiratory effort decreased bibasilar breath sounds no wheezes or rhonchi. GASTROINTESTINAL: Abdomen soft, non-tender, nondistended. No hepato-splenomegaly , or palpable masses. No guarding. MUSCULOSKELETAL: Extremities without clubbing, cyanosis, or edema. No joint tenderness, effusion, or edema noted. No calf tenderness. Negative Homans sign bilaterally. Generally decreased muscle mass. NEUROLOGICAL: Awake and alert. Cranial nerves II through XII intact. Decreased bilateral lower extremity motor strength. Laboratory Laboratory Tests Test 02/20/18 14:40 02/20/18 14:43 02/20/18 20:00 02/21/18 03:57 White Blood Count 6.8 Red Blood Count 3.39 Hemoglobin 11.0 Hematocrit 30.7 Mean Corpuscular Volume 90.5 Mean Corpuscular Hemoglobin 32.4 Mean Corpuscular Hemoglobin Concent 35.8 Red Cell Distribution Width 17.5 Platelet Count 297 Mean Platelet Volume 6.4 Neutrophils (%) (Auto) 63.1 Lymphocytes (%) (Auto) 24.4 Monocytes (%) (Auto) 10.9 Eosinophils (%) (Auto) 0.8 Basophils (%) (Auto) 0.8 Neutrophils # (Auto) 4.3 Lymphocytes # (Auto) 1.7 Monocytes # (Auto) 0.7 Eosinophils # (Auto) 0.1 Basophils # (Auto) 0.1 CBC Comment DIFF FINAL Differential Comment D-Dimer Quantitative (PE/DVT) 1.64 Blood Urea Nitrogen 9 7 Creatinine 0.77 0.54 Random Glucose 115 160 Total Protein 6.7 Albumin 3.4 Calcium Level 9.0 8.6 Magnesium Level 2.0 Alkaline Phosphatase 62 Aspartate Amino Transf (AST/SGOT) 40 Alanine Aminotransferase (ALT/SGPT) 52 Total Bilirubin 1.9 Sodium Level 141 140 Potassium Level 3.2 3.2 Chloride Level 106 106 Carbon Dioxide Level 22.3 21.4 Anion Gap 13 13 Estimat Glomerular Filtration Rate 72 109 Lactic Acid Level 1.2 Troponin I LESS THAN 0.02 Blood Gas Puncture Site LT RADIAL Blood Gas Patient Temperature 98.6 Blood Gas HCO3 22 Blood Gas Base Excess -1.2 Blood Gas Oxygen Saturation 85 Arterial Blood pH 7.50 Arterial Blood Partial Pressure CO2 28 Arterial Blood Partial Pressure O2 50 Arterial Blood Oxygen Content 11.8 Arterial Blood Carboxyhemoglobin 2.4 Arterial Blood Methemoglobin 0.3 Blood Gas Hemoglobin 9.8 Oxygen Delivery Device ROOM AIR Nasal Screen MRSA (PCR) MRSA NOT DETECTED Date/Time Source Procedure Growth Status 02/20/18 14:45 Blood Peripheral Aerobic Blood Culture - Preliminary NO GROWTH IN 1 DAY Resulted 02/20/18 14:45 Blood Peripheral Anaerobic Blood Culture - Preliminary NO GROWTH IN 1 DAY Resulted Result Diagram: 02/20/18 1440 02/21/18 0357 Imaging MRI of the brain dated 02/20/2018: Conclusion: 1. Numerous masses, masses appear more numerous on the current exam when compared to the prior exam. 2. New cerebellar lesions. Independent review of MRI dated 02/20/2018 was performed, I compared the MRI directly with the scan performed in the outpatient setting on 01/22/2018: When compared to the scan in January 2018 the current scan indicates multiple new metastatic lesions which are clearly not present previously. Other smaller scans which are not previously reported are noted to be larger. Based on my assessment MRI brain dated 02/20/2018 indicates a significant progression of disease corresponding to her worsening neurologic status. Assessment and Plan Assessment and Plan 82-year-old female with diagnosis of metastatic malignant melanoma (B LOPEZ mutation negative). Progressive after several cycles of palliative Keytruda immunotherapy. She previously was treated with craniotomy with resection of brain metastases followed by radiation to the tumor bed and then radiation of a separate lesion which had developed a few months ago. Now with progressively worsening ECOG performance status, confusion, expressive aphasia and multiple new brain metastases. Oncology service and asked to see her to discuss goals of care going forward and possible treatment options. Recommendations: 1. Metastatic melanoma: Unfortunately Ms. Crane has rapidly progressive intracranial disease. I am not certain if she will achieve meaningful benefit with aggressive therapeutic interventions. I would favor a palliative approach. I did explain this to the patient's [id number] at bedside. The palliative care team has been asked to see the patient, I will request a assist in transitioning this patient to hospice level of care which is the appropriate management my view. Continue corticosteroids and continue seizure prophylaxis. The oncology service to follow along with you. Radhames Chang MD February 21, 2018 13:39
[2018-02-21] MEDS: ENALAPRILAT 1.25 MG/ML VIAL IV PUSH PRN ×2 (17:45→23:18)
[2018-02-22] VITALS (9 sets, daily range): BP systolic 119–167; BP diastolic 65–78; PULSE 71–107; RESP 21–23; TEMP 98.2–98.8; O2SAT 95–100
[2018-02-22] MEDS: LORazepam 2 MG/ML VIAL IV PRN (04:42)
[2018-02-22] MEDS: DEXAMETHASONE SOD PHOS 4 MG/ML VIAL IV PUSH SCH ×2 (05:48→14:00)
--- NOTE | 2018-02-22 07:06 | PD.ONC.PN ---
Subjective Subjective Remarks Patient seen and examined, vital signs, labs medications and overnight events reviewed. This morning the patient is sleeping she appears comfortable, she remains in four-point soft restraints. Overnight nurse reports no major cardiopulmonary or neurologic issues overnight. Objective Data Date Time Temp Pulse Resp B/P (MAP) Pulse Ox O2 Delivery O2 Flow Rate FiO2 02/22/18 06:00 76 02/22/18 04:00 84 02/22/18 04:00 98.8 107 21 161/78 (105) 100 02/22/18 02:00 84 02/22/18 00:00 105 02/22/18 00:00 98.6 105 23 167/78 (107) 95 02/21/18 22:00 114 02/21/18 20:00 106 02/21/18 20:00 99 Nasal Cannula 2.00 02/21/18 20:00 98.4 106 19 162/68 (99) 99 02/21/18 18:00 99 02/21/18 16:00 87 02/21/18 16:00 98.6 87 21 165/85 (111) 100 02/21/18 14:00 91 02/21/18 12:00 83 02/21/18 12:00 97.9 83 19 151/80 (103) 100 02/21/18 10:00 80 02/21/18 08:00 88 02/21/18 08:00 97.7 88 19 144/86 (105) 99 Result Diagram: 02/20/18 1440 02/21/18 0357 Culture Results Microbiology Date/Time Source Procedure Growth Status 02/20/18 14:45 Blood Peripheral Aerobic Blood Culture - Preliminary Gram Positive Cocci Resulted 02/20/18 14:45 Anaerobic Blood Culture - Preliminary Gram Positive Cocci Resulted 02/20/18 14:40 Blood Peripheral Aerobic Blood Culture - Preliminary NO GROWTH IN 1 DAY Resulted 02/20/18 14:40 Anaerobic Blood Culture - Preliminary Gram Positive Cocci Resulted Administered Medications Medications (Trade) Dose Ordered Sig/Courtney Route PRN Reason Start Time Stop Time Status Last Admin Dose Admin Levetriacetam 500 mg/Sodium Chloride 105 ml @ 420 mls/hr DAILY IV 02/21/18 09:00 02/21/18 08:16 Dexamethasone Sodium Phosphate (Decadron Inj) 4 mg Q8HR IV PUSH 02/20/18 22:00 02/22/18 05:48 Enalaprilat (Vasotec Inj) 1.25 mg Q8H PRN IV PUSH sbp >160 or dbp >95 02/20/18 20:00 02/21/18 23:18 Lorazepam (Ativan Inj) 0.5 mg Q4H PRN IV AGITATION 02/21/18 01:30 02/22/18 04:42 Potassium Chloride/Sodium Chloride 1,000 ml @ 75 mls/hr [id number] IV 02/21/18 09:00 02/21/18 21:50 Objective Remarks GENERAL: Elderly lady, laying in bed, she is asleep she did not arouse to gentle stimulus. SKIN: Warm and dry. Erythema on the face. Skin is generally dry. HEAD: Normocephalic. EYES: No scleral icterus. No injection or drainage. NECK: Supple, trachea midline. No JVD or lymphadenopathy. LYMPHATIC: No adenopathy. CARDIOVASCULAR: Regular rate and rhythm without murmurs. RESPIRATORY: Breath sounds equal bilaterally. No accessory muscle use. GASTROINTESTINAL: Abdomen soft, non-tender, nondistended. EXTREMITIES: No cyanosis, or edema. Generally decreased muscle mass. MUSCULOSKELETAL: Adequate muscle tone. NEUROLOGICAL: Examination was limited due to her being asleep. Assessment/Plan Assessment 82-year-old female with diagnosis of metastatic malignant melanoma (BRAF mutation negative). Progressive intracranial metastases following resection of 2 intracranial lesions in August 2017 followed by palliative radiation to the tumor bed and several cycles of palliative Keytruda immunotherapy. Now with progressively worsening ECOG performance status, confusion, expressive aphasia and multiple new brain metastases. Oncology service and asked to see her to discuss goals of care going forward and possible treatment options. Plan 1. Metastatic melanoma with rapid progression of intracranial metastases: Recommend palliation with eventual referral to hospice. The patient remains on Keppra for seizure prophylaxis and is on dexamethasone for management of vasogenic edema. Case was discussed with the patient's lqajdmhe-[id number] Julius as well as her other [id number] yesterday. They seem to voice agreement and acceptance. Palliative care is on board at this time. From an oncologic standpoint I do not have any additional recommendations at this time. Radhames Chang MD February 22, 2018 07:06
--- NOTE | 2018-02-22 07:58 | HHI.PR ---
Subjective Remarks resting comfortably Objective Vitals heart reg lung cta abd s/nt ext no edema Vital Signs Date Time Temp Pulse Resp B/P (MAP) Pulse Ox O2 Delivery O2 Flow Rate FiO2 02/22/18 06:00 76 02/22/18 04:00 84 02/22/18 04:00 98.8 107 21 161/78 (105) 100 02/22/18 02:00 84 02/22/18 00:00 105 02/22/18 00:00 98.6 105 23 167/78 (107) 95 02/21/18 22:00 114 02/21/18 20:00 106 02/21/18 20:00 99 Nasal Cannula 2.00 02/21/18 20:00 98.4 106 19 162/68 (99) 99 02/21/18 18:00 99 02/21/18 16:00 87 02/21/18 16:00 98.6 87 21 165/85 (111) 100 02/21/18 14:00 91 02/21/18 12:00 83 02/21/18 12:00 97.9 83 19 151/80 (103) 100 02/21/18 10:00 80 02/21/18 08:00 88 02/21/18 08:00 97.7 88 19 144/86 (105) 99 Result Diagram: 02/20/18 1440 02/21/18 0357 Imaging Last [address] 02/20/18 1432 Signed Impressions: Service Date/Time: Tuesday, February 20, 2018 15:31 - CONCLUSION: Progressing apparent metastatic disease in the brain. Minimal increase in mass effect. Lesions are spontaneously dense and possibly hemorrhagic. CT scan can underestimate metastatic melanoma. Gamal Manuel MD FACR Chest X-Ray 02/20/18 1432 Signed Impressions: Service Date/Time: Tuesday, February 20, 2018 15:03 - CONCLUSION: Minimal parenchymal changes left base without infiltrate or failure. Gamal Manuel MD FACR A/P Problem List: (1) Malignant melanoma metastatic to brain ICD Codes: C79.31 - Secondary malignant neoplasm of brain Status: Acute Plan: metastatic melanoma to brain. s/p left occipital/right frontal craniotomy/resection 08/24 pt had received radiation and immunotherapy. Pt presents with increased delirium and mri revealed more numerous metastatic deposits gpc positive blood cx..no fever or leukocytosis. await identification. ? contaminant discussed with Dr Chang. We feel palliative care consult is appropriate and likely move her toward hospice care cont ivf with kcl swallow evaluation. await final family decision after meeting today at noon. (2) Altered mental status ICD Codes: R41.82 - Altered mental status, unspecified Status: Acute (3) HTN (hypertension) ICD Codes: I10 - Essential (primary) hypertension Status: Chronic Plan: \ Problem Qualifiers (1) Altered mental status: Qualified Codes: R41.0 - Disorientation, unspecified (2) HTN (hypertension): Qualified Codes: I10 - Essential (primary) hypertension Arthur Nguyễn MD February 22, 2018 07:58
[2018-02-22] MEDS: levETIRAcetam INJ 500 MG in SODIUM CHLORIDE 0.9% INJ 100 ML IV SCH (10:40)
[2018-02-22] MEDS: NS + KCL 40 MEQ INJ 1,000 ML IV SCH (11:40)
--- NOTE | 2018-02-22 11:50 | HHI.HCPN ---
Reason for visit A. To assist with evaluation and management of symptoms including: Confusion, agitation b. To assist medical decision maker(s) with: better understanding of current medical conditions; weighing benefits/burdens of medical treatment options; making medical treatment decisions. Subjective/Interval History Patient seen for follow-up on agitation, confusion. 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 Initial evaluation, she was not speaking or following commands. During family meeting at bedside she was awake, alert, smiling, but remains confused. She appears intermittently oriented to self, otherwise not oriented. She speaks a few words but frequently does not answer questions. She was agitated overnight requiring 2 doses of Ativan 0.5 mg IV for thrashing and agitation. She remains restrained in four-point restraint for patient safety. The agitation is intermittent, moderate to severe with each recurrence , relieved by sedatives at this time. No seizure activity was noted. Blood cultures positive for gram-positive cocci at this time, pending further culture to determine specific bacteria versus contamination. . Family/friend interactions Spoke with Chinedu kathleen and Jorden, as well as both [id number] at bedside with hospice in attendance for any further questions. Reviewed patient's clinical course, specialist opinions and likely scenarios for upcoming disease course. Family was that they wanted her to remain in their home as long as possible but were willing to consider a short-term stay at the hospice care center for symptom management and medication titration, once made aware of the option for a family member to remain with her there. This will allow the family a short time to make plans at home for someone to monitor the patient during their absence. Ne Dye RN explained hospice services, CODE STATUS was changed to DNR and hospice consents signed. This was also discussed with patient's attending, Dr. Sosa, who felt the patient was stable for discharge to the care center. . Advance Directives Living Will: Completed, but not made available Health Care Surrogate: Completed, but not made available Durable Power of Pari [employer] Ticket Cashier: Completed, but not made available Advance Directive Specifics Date completed: Pending receipt of the documents from the son. . Health Care Surrogate(s): Chinedu Kathleen, states he has the surrogate paperwork and will email., Pending receipt. . Documented care wishes: Advanced directive paperwork with the Chinedu kathleen, pending receipt. . Objective Vital Signs Date Time Temp Pulse Resp B/P (MAP) Pulse Ox O2 Delivery O2 Flow Rate FiO2 02/22/18 10:00 91 02/22/18 08:00 71 02/22/18 08:00 98.4 88 21 148/71 (96) 100 02/22/18 07:00 99 Nasal Cannula 2.00 02/22/18 06:00 76 02/22/18 04:00 84 02/22/18 04:00 98.8 107 21 161/78 (105) 100 02/22/18 02:00 84 02/22/18 00:00 105 02/22/18 00:00 98.6 105 23 167/78 (107) 95 02/21/18 22:00 114 02/21/18 20:00 106 02/21/18 20:00 99 Nasal Cannula 2.00 02/21/18 20:00 99 Nasal Cannula 2.00 02/21/18 20:00 98.4 106 19 162/68 (99) 99 02/21/18 18:00 99 02/21/18 16:00 87 02/21/18 16:00 98.6 87 21 165/85 (111) 100 02/21/18 14:00 91 02/21/18 12:00 83 02/21/18 12:00 97.9 83 19 151/80 (103) 100 Intake & Output 02/22/18 02/22/18 07:00 19:00 Intake Total 1000 ml Balance 1000 ml IV Total 1000 ml # Voids 3 # Bowel Movements 0 Physical Exam CONSTITUTIONAL/GENERAL: This is an adequately nourished patient, restrained in bed, in no apparent distress. TUBES/LINES/DRAINS: PIV, RAC SKIN: No jaundice, rashes, or lesions. Ecchymoses on upper extremities. No wounds seen anteriorly. Skin temperature appropriate. Not diaphoretic. HEAD: Atraumatic. Normocephalic. EYES: Pupils equal and round and sluggishly reactive. Extraocular motions intact. No scleral icterus. No injection or drainage. Fundi not examined. ENT: Hearing grossly normal. Nose without bleeding or purulent drainage. Throat without visible erythema, exudates, masses, or lesions. NECK: Trachea midline. Supple, nontender. No palpable thyroid enlargement or nodularity. CARDIOVASCULAR: Regular rate and rhythm without murmurs, gallops, or rubs. No JVD. Peripheral pulses symmetric. RESPIRATORY/CHEST: Symmetric, unlabored respirations. Clear to auscultation. Breath sounds equal bilaterally. No wheezes, rales, or rhonchi. GASTROINTESTINAL: Abdomen soft, non-tender, nondistended. No hepato-splenomegaly , or palpable masses. No guarding. Bowel sounds present. GENITOURINARY: Without palpable bladder distension. MUSCULOSKELETAL: Extremities without clubbing, cyanosis, or edema. No joint tenderness or effusion noted. No calf tenderness. No mottling or clubbing. LYMPHATICS: No palpable cervical or supraclavicular adenopathy. NEUROLOGICAL: Awake, alert, confused, PSYCHIATRIC: Agitated overnight,, this morning after Ativan. . Diagnostic Tests Laboratory Laboratory Tests Test 02/20/18 14:40 02/20/18 14:43 02/20/18 20:00 02/21/18 03:57 White Blood Count 6.8 TH/MM3 (4.0-11.0) Red Blood Count 3.39 MIL/MM3 (4.00-5.30) Hemoglobin 11.0 GM/DL (11.6-15.3) Hematocrit 30.7 % (35.0-46.0) Mean Corpuscular Volume 90.5 FL (80.0-100.0) Mean Corpuscular Hemoglobin 32.4 PG (27.0-34.0) Mean Corpuscular Hemoglobin Concent 35.8 % (32.0-36.0) Red Cell Distribution Width 17.5 % (11.6-17.2) Platelet Count 297 TH/MM3 (150-450) Mean Platelet Volume 6.4 FL (7.0-11.0) Neutrophils (%) (Auto) 63.1 % (16.0-70.0) Lymphocytes (%) (Auto) 24.4 % (9.0-44.0) Monocytes (%) (Auto) 10.9 % (0.0-8.0) Eosinophils (%) (Auto) 0.8 % (0.0-4.0) Basophils (%) (Auto) 0.8 % (0.0-2.0) Neutrophils # (Auto) 4.3 TH/MM3 (1.8-7.7) Lymphocytes # (Auto) 1.7 TH/MM3 (1.0-4.8) Monocytes # (Auto) 0.7 TH/MM3 (0-0.9) Eosinophils # (Auto) 0.1 TH/MM3 (0-0.4) Basophils # (Auto) 0.1 TH/MM3 (0-0.2) CBC Comment DIFF FINAL Differential Comment D-Dimer Quantitative (PE/DVT) 1.64 MG/L FEU (0.00-0.50) Blood Urea Nitrogen 9 MG/DL (7-18) 7 MG/DL (7-18) Creatinine 0.77 MG/DL (0.50-1.00) 0.54 MG/DL (0.50-1.00) Random Glucose 115 MG/DL (74-106) 160 MG/DL (74-106) Total Protein 6.7 GM/DL (6.4-8.2) Albumin 3.4 GM/DL (3.4-5.0) Calcium Level 9.0 MG/DL (8.5-10.1) 8.6 MG/DL (8.5-10.1) Magnesium Level 2.0 MG/DL (1.5-2.5) Alkaline Phosphatase 62 U/L (45-117) Aspartate Amino Transf (AST/SGOT) 40 U/L (15-37) Alanine Aminotransferase (ALT/SGPT) 52 U/L (10-53) Total Bilirubin 1.9 MG/DL (0.2-1.0) Sodium Level 141 MEQ/L (136-145) 140 MEQ/L (136-145) Potassium Level 3.2 MEQ/L (3.5-5.1) 3.2 MEQ/L (3.5-5.1) Chloride Level 106 MEQ/L (98-107) 106 MEQ/L (98-107) Carbon Dioxide Level 22.3 MEQ/L (21.0-32.0) 21.4 MEQ/L (21.0-32.0) Anion Gap 13 MEQ/L (5-15) 13 MEQ/L (5-15) Estimat Glomerular Filtration Rate 72 ML/MIN (>89) 109 ML/MIN (>89) Lactic Acid Level 1.2 mmol/L (0.4-2.0) Troponin I LESS THAN 0.02 NG/ML Blood Gas Puncture Site LT RADIAL Blood Gas Patient Temperature 98.6 Blood Gas HCO3 22 mmol/L (22-26) Blood Gas Base Excess -1.2 mmol/L (-2-2) Blood Gas Oxygen Saturation 85 % (90-100) Arterial Blood pH 7.50 (7.380-7.420) Arterial Blood Partial Pressure CO2 28 mmHg (38-42) Arterial Blood Partial Pressure O2 50 mmHG (61-120) Arterial Blood Oxygen Content 11.8 Vol % (12.0-20.0) Arterial Blood Carboxyhemoglobin 2.4 % (0-4) Arterial Blood Methemoglobin 0.3 % (0-2) Blood Gas Hemoglobin 9.8 G/DL (12.0-16.0) Oxygen Delivery Device ROOM AIR Nasal Screen MRSA (PCR) MRSA NOT DETECTED (NOT Result Diagram: 02/20/18 1440 02/21/18 0357 Microbiology Microbiology Date/Time Source Procedure Growth Status 02/20/18 14:45 Blood Peripheral Aerobic Blood Culture - Preliminary Staph Sp Coagulase Negative Resulted 02/20/18 14:45 Anaerobic Blood Culture - Preliminary Gram Positive Cocci Resulted 02/20/18 14:40 Blood Peripheral Aerobic Blood Culture - Preliminary Staph Sp Coagulase Negative Resulted 02/20/18 14:40 Anaerobic Blood Culture - Preliminary Staph Sp Coagulase Negative Resulted Assessment and Plan Disease Oriented Problem List: (1) Malignant melanoma metastatic to brain (2) HTN (hypertension) Symptom Scale: (1) Confusion (2) Agitation Pertinent Non-Medical Issues Psychosocial:Born and raised locally. She retired from [employer]. She is with 2 sons and 1 daughter. She lives with 1 of her sons, Chinedu, since her diagnosis of metastatic melanoma. Spiritual: Mandaen mitul. Legal: Pending copy of previously completed directive paperwork from home. Ethical issues impacting care: None noted. . Important Contacts Son: Chinedu Crane Son: Jorden Crane Daughter: Ivanna Quach . Prognosis Her prognosis is poor. She is 82 years old with metastatic melanoma of unknown primary to the brain, now with new lymphadenopathy seen on PET/CT. Per Dr. Chang's note, he is recommending palliative care/hospice, due to the mixed results seen on the PET scan with resolution of lung nodules and findings of new lymphadenopathy. In spite of immunotherapy and radiation, it appears that the disease is progressing and will likely end her life. Family is requesting further discussion to determine goals of care, scheduled for 02/22. . Code Status: Full Code Plan PLAN: Legal decision maker: At this time the patient is not capacitated for decision-making. Her son Chinedu states that he is been named the healthcare surrogate, however receipt of those papers is pending. Without the healthcare surrogate documentation, per [place] statutes, as patient is the majority of her adult children could serve as healthcare proxy if willing. Goals: Aggressive. CODE STATUS: FULL CODE SYMPTOMS: * Confusion: Likely due to the effects of the metastatic melanoma to her brain. This has been intermittent per her son but occurring more often. Family plans to keep her at home, once discharged. Familiar surroundings may be her best intervention for managing her quality of life if confusion improves. As her clinical course is likely to continue to decline further interventions are available or Dr. Chang, family has decided to enroll in hospice services and patient to go to the [facility] for a brief period to manage symptoms while they make arrangements to bring her home. * Agitation: Multifactorial to include strange surroundings, metastatic brain cancer, steroid use. She has Ativan 0.5 mg every 4 hours as needed for agitation and is now requiring soft extremity restraints for safety. She was agitated overnight and received two 0.5 mg doses of Ativan. She is calm at this evaluation and restraints were able to be removed. Scheduled for transfer to the [facility] today for symptom management with and discharge plan to go home with family. Palliative care will continue to follow the patient during hospital course as condition evolves, to assist patient/decision-maker with understanding of their medical conditions, weighing benefits/burdens of treatment options, for clarification of goals of treatment. Additionally will assist with any symptoms of palliative concern. . Attestation To help prompt me to consider important information that might be impacting today's encounter and assessment, information from prior notes written by myself or my colleagues may have been "brought forward" into today's note. My signature on this note, however, is an attestation that I personally performed the exam, history, and/or decision-making noted today, and, unless otherwise indicated, the interactions with patient, family, and staff as well as the review of records all occurred today. I also attest that the listed assessment and stated plan reflect my best clinical judgment today based on the combination of historical information, prior notes, and today's exam/ interactions. When time spent is documented, it refers only to time spent today by the signer, or if indicated, combined time spent today by collaborating physician/nurse practitioner. . Yoanna Tanner February 22, 2018 11:50
--- NOTE | 2018-02-22 12:06 | EKG ---
Date Performed: 02/20/2018 Time Performed: 14:29:02 PTAGE: 82 years EKG: SINUS TACHYCARDIA MINIMAL ST DEPRESSION ABNORMAL RHYTHM ECG NO PREVIOUS TRACING DOCTOR: Ed Gordillo Interpretating Date/Time 02/22/2018 11:55:58
== END 2018-02-22 16:35 | disposition hospice, inpatient (51) | DRG 55 ==
LOC: NEPE 14:04 → NEDA 19:19 → N03A 21:15
PROVIDERS: ADMIT Hospitalist; ATTEND Hospitalist
DX: C79.31 Secondary malignant neoplasm of brain (principal); C43.9 Malignant melanoma of skin, unspecified; R56.9 Unspecified convulsions; K21.9 Gastro-esophageal reflux disease without esophagitis; I10 Essential (primary) hypertension; Z51.5 Encounter for palliative care; Z91.81 History of falling; Z92.3 Personal history of irradiation
CPT/HCPCS: 36600; 70450; 70553; 71045; 80048; 80053; 82805; 83605; 83735; 84484; 85025; 85379; 87040; 87077; 87186; 87205; 87641; 93005; 96365; 96375; A9579; J1100; J1953; J2060; J3480